=== PATIENT | male | born 1935 | race Caucasian/White ===

== ENCOUNTER 2017-03-08 16:51 | Inpatient (IN) ==
--- NOTE | 2017-03-08 19:00 | Emergency Department Note ---
Disposition Clinical Impression: Fall (on) (from) other stairs and steps, initial encounter, Frequent falls GI bleed Qualifiers: GI bleed type/associated pathology: melena Qualified Code(s): K92.1 - Melena Disposition: Admitted As Inpatient Condition: Fair General Adult HPI - General Chief complaint: ED Extremity Injury, Lower Stated complaint: L leg pain s/p fall Time Seen by Provider: 03/08/17 18:47 Source: patient Mode of arrival: ambulatory Limitations: no limitations Nursing Notes Reviewed: Yes Vital Signs Reviewed: Yes - History of Present Illness HPI Narrative: Pt with history of frequent falls over the last week and a half since changing HTN medication from Benecar to Losartan. States last weekend fell "scraping" [place] somers. Saw PCP on Friday. Since then LLE with increased edema, erythema, ecchymosis which hashad little change. Pain with ambulation "stinging". Full ROM to AE. No testing at PCP from fall. States no dizziness before falls, but when lifting LLE off of ground for stairs falls without syncope, dizziness, or other ailments. Has since changed patterns of entering house through garage to prevent falls since this path involves no steps. Onset (ago): week(s) Location: left, lower extremity Radiation: non-radiation Pain Severity: moderate Pain Scale: 10 Quality: stabbing, sharp Consistency: intermittent Improves with: rest Worsens with: movement Associated symptoms: Reports: denies other symptoms Treatments Prior to Arrival: NSAID, cold therapy, heat therapy - Related Data Allergies Allergy/AdvReac Type Severity Reaction Status Date / Time bacitracin [From Polysporin] Allergy Hives Verified 03/08/17 17:11 Neomycin Allergy Hives Verified 03/08/17 17:11 [From Neosporin ([id number])] polymyxin B [From Polysporin] Allergy Hives Verified 03/08/17 17:11 All systems ED: reviewed and negative except as stated. Review of Systems: As Per HPI Constitutional: Reports: as per HPI. Denies: fever, chills Cardiovascular: Reports: as per HPI, edema. Denies: chest pain, palpitations, syncope Respiratory: Reports: as per HPI. Denies: cough, wheezes, hemoptysis Musculoskeletal: Reports: as per HPI Integumentary: Reports: as per HPI Neurological: Reports: as per HPI Past Medical History - Past Medical History Attestation: Yes The following information was validated with the patient. Medical history: Reports: CHF, myocardial infarction, TIA Psychiatric history: Reports: no psych history - Social History Smoking Status: Never smoker Smokeless Tobacco Status: No Alcohol use: Reports: none Drug use: Reports: none Physical Exam - General Limitations: no limitations General appearance: alert, in no apparent distress - Head Head exam: atraumatic, normocephalic, normal inspection - Chest Chest inspection: Present: normal inspection, symmetric chest wall rise - Respiratory Respiratory exam: Present: normal lung sounds bilaterally. Absent: respiratory distress, wheezes, accessory muscle use - Cardiovascular Cardiovascular exam: Present: regular rate, normal rhythm, normal heart sounds. Absent: systolic murmur - Expanded Lower Extremity Exam 1 - erythema, ecchymosis, hematoma 2 - erythema, ecchymosis, hematoma Knee exam: Present: normal inspection, full ROM. Absent: tenderness, swelling, ecchymosis, deformity, crepitus, dislocation, erythema Lower leg exam: Present: full ROM, tenderness, swelling, abrasion, ecchymosis, erythema. Absent: laceration, deformity, crepitus, dislocation Ankle exam: Present: full ROM, tenderness, swelling, erythema. Absent: abrasion , laceration, ecchymosis, deformity, crepitus, dislocation Foot/toe exam: Present: full ROM, swelling. Absent: tenderness, abrasion, laceration, ecchymosis, deformity Neurovascular/Tendon exam: Present: normal capillary refill, normal fine/light touch. Absent: pulse deficit, motor deficit, sensory deficit, tendon deficit, extremity cold to touch, pallor, foot drop, significant pain with passive ROM of distal joint Gait: not tested/not observed - Neurological Exam Neurological exam: Present: alert, oriented X3, CN II-XII intact - Psychiatric Psychiatric exam: Present: normal affect, normal mood - Skin Skin exam: Present: warm, dry, intact Course Course Narrative: Pleasant, elderly, alert and oriented male presents with history of falls with fall last week resulting in abrasions to LLE. Saw PCP last Friday, since then extremity has had increased edema, erythema, ecchymotic areas, and increased pain. Pt able to walk but with shooting pain. Multiple falls over the last few weeks since HTN medication change. Pt also anti-coagulated on Effient. Pt moved to medical side, report given to Dr. Brink who will take over care. Vital Signs Temperature 97.9 F 03/08/17 17:07 Pulse Rate 76 03/08/17 17:07 Respiratory Rate 18 03/08/17 17:07 Blood Pressure 110/54 03/08/17 17:07 O2 Sat by Pulse Oximetry 98 03/08/17 17:07 Temperature 97.9 F 03/08/17 17:07 Pulse Rate 76 03/08/17 17:07 Respiratory Rate 18 03/08/17 17:07 Blood Pressure 110/54 03/08/17 17:07 O2 Sat by Pulse Oximetry 98 03/08/17 17:07 Oxygen Delivery Oxygen Delivery Room Air Medical Decision Making - Lab Data Result diagrams: 03/08/17 18:58 03/08/17 18:58 Lab Results 03/08/17 03/08/17 03/08/17 Range/Units 18:58 18:58 18:58 WBC 9.7 (4.3-11.1) K/mcL RBC 2.81 L (4.19-5.50) M/mcL Hgb 8.5 L (12.9-16.9) g/dL Hct 26.6 L (37.5-50.1) % MCV 94.7 (83.0-100.0) fL MCH 30.2 (28.0-33.3) pg MCHC 32.0 (31.6-35.5) g/dL RDW 14.1 (11.5-14.5) % Plt Count 331 (140-400) K/mcL MPV 8.4 L (9.4-12.4) fL Immature Gran % 0.5 (0-4) % Seg Neutrophils % 77.7 % Lymphocytes % 6.9 % Monocytes % 13.1 % Eosinophils % 1.3 % Basophils % 0.5 % Neutrophils # 7.5 (1.6-8.9) K/mcL Lymphocytes # 0.7 (0.6-4.6) K/mcL Monocytes # 1.3 (0.0-1.3) K/mcL Eosinophils # 0.1 (0.0-0.6) K/mcL Basophils # 0.1 (0.0-0.2) K/mcL Immature Plt Fraction 1.1 (1.1-6.1) % PT 11.9 (9.4-12.1) Seconds INR 1.1 APTT 30.7 (26.0-36.0) Seconds Sodium 136 (136-145) mEq/L Potassium 4.4 (3.5-5.1) mEq/L Chloride 105 (98-107) mEq/L Carbon Dioxide 23 (23-29) mEq/L BUN 26 H (8-23) mg/dL Creatinine 1.30 (0.70-1.30) mg/dL Est GFR ( Amer) > 60 (> 60) Est GFR (Non-Af Amer) 53 L (> 60) BUN/Creatinine Ratio 20 (6-26) Glucose 99 (70-105) mg/dL Calculated Osmolality 287 (280-300) Calcium 9.3 (8.6-10.3) mg/dL Troponin I (< 0.04) ng/mL Stool Occult Blood (Negative) Specimen Rejected Blood Type 03/08/17 03/08/17 03/08/17 Range/Units 18:58 20:23 21:41 WBC (4.3-11.1) K/mcL RBC (4.19-5.50) M/mcL Hgb (12.9-16.9) g/dL Hct (37.5-50.1) % MCV (83.0-100.0) fL MCH (28.0-33.3) pg MCHC (31.6-35.5) g/dL RDW (11.5-14.5) % Plt Count (140-400) K/mcL MPV (9.4-12.4) fL Immature Gran % (0-4) % Seg Neutrophils % % Lymphocytes % % Monocytes % % Eosinophils % % Basophils % % Neutrophils # (1.6-8.9) K/mcL Lymphocytes # (0.6-4.6) K/mcL Monocytes # (0.0-1.3) K/mcL Eosinophils # (0.0-0.6) K/mcL Basophils # (0.0-0.2) K/mcL Immature Plt Fraction (1.1-6.1) % PT (9.4-12.1) Seconds INR APTT (26.0-36.0) Seconds Sodium (136-145) mEq/L Potassium (3.5-5.1) mEq/L Chloride (98-107) mEq/L Carbon Dioxide (23-29) mEq/L BUN (8-23) mg/dL Creatinine (0.70-1.30) mg/dL Est GFR ( Amer) (> 60) Est GFR (Non-Af Amer) (> 60) BUN/Creatinine Ratio (6-26) Glucose (70-105) mg/dL Calculated Osmolality (280-300) Calcium (8.6-10.3) mg/dL Troponin I < 0.03 (< 0.04) ng/mL Stool Occult Blood Positive A (Negative) Specimen Rejected Volume Blood Type 03/08/17 Range/Units 23:03 WBC (4.3-11.1) K/mcL RBC (4.19-5.50) M/mcL Hgb (12.9-16.9) g/dL Hct (37.5-50.1) % MCV (83.0-100.0) fL MCH (28.0-33.3) pg MCHC (31.6-35.5) g/dL RDW (11.5-14.5) % Plt Count (140-400) K/mcL MPV (9.4-12.4) fL Immature Gran % (0-4) % Seg Neutrophils % % Lymphocytes % % Monocytes % % Eosinophils % % Basophils % % Neutrophils # (1.6-8.9) K/mcL Lymphocytes # (0.6-4.6) K/mcL Monocytes # (0.0-1.3) K/mcL Eosinophils # (0.0-0.6) K/mcL Basophils # (0.0-0.2) K/mcL Immature Plt Fraction (1.1-6.1) % PT (9.4-12.1) Seconds INR APTT (26.0-36.0) Seconds Sodium (136-145) mEq/L Potassium (3.5-5.1) mEq/L Chloride (98-107) mEq/L Carbon Dioxide (23-29) mEq/L BUN (8-23) mg/dL Creatinine (0.70-1.30) mg/dL Est GFR ( Amer) (> 60) Est GFR (Non-Af Amer) (> 60) BUN/Creatinine Ratio (6-26) Glucose (70-105) mg/dL Calculated Osmolality (280-300) Calcium (8.6-10.3) mg/dL Troponin I (< 0.04) ng/mL Stool Occult Blood (Negative) Specimen Rejected Blood Type B POSITIVE
[2017-03-08 19:07] LABS: Basophils # 0.1 K/mcL (0.0-0.2); Basophils % 0.5 %; Eosinophils # 0.1 K/mcL (0.0-0.6); Eosinophils % 1.3 %; Hematocrit 26.6 % (37.5-50.1); Hemoglobin 8.5 g/dL (12.9-16.9); Immature Granulocytes % 0.5 % (0-4); Immature Platelets 1.1 % (1.1-6.1); Lymphocytes # 0.7 K/mcL (0.6-4.6); Lymphocytes % 6.9 %; Mean Corpuscular Hemoglobin 30.2 pg (28.0-33.3); Mean Corpuscular Volume 94.7 fL (83.0-100.0); Mean Platelet Volume 8.4 fL (9.4-12.4); Monocytes # 1.3 K/mcL (0.0-1.3); Monocytes % 13.1 %; Neutrophils # 7.5 K/mcL (1.6-8.9); Platelet Count 331 K/mcL (140-400); Red Blood Count 2.81 M/mcL (4.19-5.50); Red Cell Distribution Width 14.1 % (11.5-14.5); Segmented Neutrophils % 77.7 %
[2017-03-08 19:20] LABS: BUN/Creatinine Ratio 20 (6-26); Blood Urea Nitrogen 26 mg/dL (8-23); Calcium 9.3 mg/dL (8.6-10.3); Carbon Dioxide 23 mEq/L (23-29); Chloride 105 mEq/L (98-107); Glucose 99 mg/dL (70-105); Osmolality,Calculated 287 (280-300); Potassium 4.4 mEq/L (3.5-5.1); Sodium 136 mEq/L (136-145); eGFR For African Americans > 60 (> 60); eGFR For Non-African Americans 53 (> 60)
[2017-03-08 19:54] LABS: INR 1.1; Prothrombin Time 11.9 Seconds (9.4-12.1)
[2017-03-08 19:57] LABS: Activated Partial Thrombo Time 30.7 Seconds (26.0-36.0)
--- NOTE | 2017-03-08 22:43 | Emergency Department Note ---
Disposition Clinical Impression: Fall (on) (from) other stairs and steps, initial encounter, Frequent falls GI bleed Qualifiers: GI bleed type/associated pathology: melena Qualified Code(s): K92.1 - Melena Traumatic hematoma of left lower leg Qualifiers: Encounter type: initial encounter Qualified Code(s): S80.12XA - Contusion of left lower leg, initial encounter Disposition: Admitted As Inpatient Condition: Fair Time of Disposition: 22:46 Lower Extremity Injury HPI - General Chief Complaint: ED Extremity Injury, Lower Stated Complaint: L leg pain s/p fall Time Seen by Provider: 03/08/17 18:47 Source: patient Mode of arrival: ambulatory Limitations: no limitations Nursing Notes Reviewed: Yes Vital Signs Reviewed: Yes - History of Present Illness HPI Narrative: 81-year-old male presents with left leg pain and tenderness, also frequent falls , as well as fall and head injury. Patient anticoagulated on Effient, he states he has had more episodes dizziness lately that he attributes to changing his blood pressure medicine patient reports dark black stools, he denies hematochezia or hematemesis. Denies abdominal pain. Her chest pain. Patient is a history of blood clots or DVTs. He was seen initially by the nurse practitioner up at triage, there is concern for DVT immediately on the left so an ultrasound was ordered as well as basic lab work. Patient states his pain is 4 out of 10 worse with ambulation. Pt Subjective Complaint: leg injury Injury location: Left Leg Onset (ago): day(s) Mechanism of Injury: fall Pain Severity: mild Pain Scale: 4 Associated symptoms: Reports: able to partially bear weight - Related Data Allergies Allergy/AdvReac Type Severity Reaction Status Date / Time bacitracin [From Polysporin] Allergy Hives Verified 03/08/17 17:11 Neomycin Allergy Hives Verified 03/08/17 17:11 [From Neosporin ([id number])] polymyxin B [From Polysporin] Allergy Hives Verified 03/08/17 17:11 All systems ED: reviewed and negative except as stated. Review of Systems: As Per HPI Constitutional: Reports: as per HPI. Denies: fever, chills Cardiovascular: Reports: as per HPI, edema. Denies: chest pain, palpitations, syncope Respiratory: Reports: as per HPI. Denies: cough, wheezes, hemoptysis Gastrointestinal: Reports: melena. Denies: abdominal pain, nausea, hematochezia Genitourinary: Denies: urgency Musculoskeletal: Reports: as per HPI Integumentary: Reports: as per HPI Neurological: Reports: as per HPI Past Medical History - Past Medical History Attestation: Yes The following information was validated with the patient. Source: patient Medical history: Reports: CHF, myocardial infarction, TIA Psychiatric history: Reports: no psych history - Social History Smoking Status: Never smoker Smokeless Tobacco Status: No Alcohol use: Reports: none Drug use: Reports: none Physical Exam Constitutional: Elderly male in no acute distress, appears dehydrated, somewhat shaky vital signs stable Eyes: PERRLA, sclera anicteric, pale conjunctiva ENT & Mouth: MM dry Neck: normal inspection, neck is supple Resp: CTA bilaterally, no resp distress CV: RRR, no m/g/r GI: normal inspection, soft, no guarding or rigidity Rectal: black stool occult + Neuro: A&O3, CNII-XII grossly intact, PADILLA MSK: Tenderness to palpation left anterior tibial and posterior leg, good range of motion and no gross deformity Skin: Erythematous left leg with firm indurated skin, no crepitus, no fluctuance. - General Limitations: no limitations General appearance: alert, in no apparent distress Course Course Narrative: 81-year-old male with frequent falls, concern for GI bleed as well as he has melenic stools, his left leg is erythematous and swollen, no clear signs of DVT as this swelling appears to be not much greater than the right side however ultrasound was ordered basic lab work as well as coagulation studies were ordered in addition to the mid-level's exam, there is also concern for frequent falls, he is on a blood thinner Effient therefore head CT also be ordered his head is atraumatic at this time and he did say he has had a few days ago and is not sure why falls of its syncopal, no clear signs of arrhythmia on his EKG. - Reevaluation(s) Reevaluation #1: Hospitalist paged Reevaluation #2: Admitted to hospital service for GI bleed frequent falls, type and screen ordered, patient hemolytically stable at time of disposition Vital Signs Temperature 97.9 F 03/08/17 17:07 Pulse Rate 76 03/08/17 17:07 Respiratory Rate 18 03/08/17 17:07 Blood Pressure 110/54 03/08/17 17:07 O2 Sat by Pulse Oximetry 98 03/08/17 17:07 Temperature 97.9 F 03/08/17 17:07 Pulse Rate 76 03/08/17 17:07 Respiratory Rate 16 03/08/17 23:51 Blood Pressure 117/53 03/08/17 23:51 O2 Sat by Pulse Oximetry 98 03/08/17 17:07 Oxygen Delivery Oxygen Delivery Room Air Extremity Injury, Lower - Medical Records Medical records reviewed: Yes I reviewed the patient's medical records. - Lab Data Lab results reviewed: Yes I reviewed the patient's lab results. Result diagrams: 03/08/17 18:58 03/08/17 18:58 Lab Results 03/08/17 03/08/17 03/08/17 Range/Units 18:58 18:58 18:58 WBC 9.7 (4.3-11.1) K/mcL RBC 2.81 L (4.19-5.50) M/mcL Hgb 8.5 L (12.9-16.9) g/dL Hct 26.6 L (37.5-50.1) % MCV 94.7 (83.0-100.0) fL MCH 30.2 (28.0-33.3) pg MCHC 32.0 (31.6-35.5) g/dL RDW 14.1 (11.5-14.5) % Plt Count 331 (140-400) K/mcL MPV 8.4 L (9.4-12.4) fL Immature Gran % 0.5 (0-4) % Seg Neutrophils % 77.7 % Lymphocytes % 6.9 % Monocytes % 13.1 % Eosinophils % 1.3 % Basophils % 0.5 % Neutrophils # 7.5 (1.6-8.9) K/mcL Lymphocytes # 0.7 (0.6-4.6) K/mcL Monocytes # 1.3 (0.0-1.3) K/mcL Eosinophils # 0.1 (0.0-0.6) K/mcL Basophils # 0.1 (0.0-0.2) K/mcL Immature Plt Fraction 1.1 (1.1-6.1) % PT 11.9 (9.4-12.1) Seconds INR 1.1 APTT 30.7 (26.0-36.0) Seconds Sodium 136 (136-145) mEq/L Potassium 4.4 (3.5-5.1) mEq/L Chloride 105 (98-107) mEq/L Carbon Dioxide 23 (23-29) mEq/L BUN 26 H (8-23) mg/dL Creatinine 1.30 (0.70-1.30) mg/dL Est GFR ( Amer) > 60 (> 60) Est GFR (Non-Af Amer) 53 L (> 60) BUN/Creatinine Ratio 20 (6-26) Glucose 99 (70-105) mg/dL Calculated Osmolality 287 (280-300) Calcium 9.3 (8.6-10.3) mg/dL Troponin I (< 0.04) ng/mL Stool Occult Blood (Negative) Specimen Rejected Blood Type Antibody Screen 03/08/17 03/08/17 03/08/17 Range/Units 18:58 20:23 21:41 WBC (4.3-11.1) K/mcL RBC (4.19-5.50) M/mcL Hgb (12.9-16.9) g/dL Hct (37.5-50.1) % MCV (83.0-100.0) fL MCH (28.0-33.3) pg MCHC (31.6-35.5) g/dL RDW (11.5-14.5) % Plt Count (140-400) K/mcL MPV (9.4-12.4) fL Immature Gran % (0-4) % Seg Neutrophils % % Lymphocytes % % Monocytes % % Eosinophils % % Basophils % % Neutrophils # (1.6-8.9) K/mcL Lymphocytes # (0.6-4.6) K/mcL Monocytes # (0.0-1.3) K/mcL Eosinophils # (0.0-0.6) K/mcL Basophils # (0.0-0.2) K/mcL Immature Plt Fraction (1.1-6.1) % PT (9.4-12.1) Seconds INR APTT (26.0-36.0) Seconds Sodium (136-145) mEq/L Potassium (3.5-5.1) mEq/L Chloride (98-107) mEq/L Carbon Dioxide (23-29) mEq/L BUN (8-23) mg/dL Creatinine (0.70-1.30) mg/dL Est GFR ( Amer) (> 60) Est GFR (Non-Af Amer) (> 60) BUN/Creatinine Ratio (6-26) Glucose (70-105) mg/dL Calculated Osmolality (280-300) Calcium (8.6-10.3) mg/dL Troponin I < 0.03 (< 0.04) ng/mL Stool Occult Blood Positive A (Negative) Specimen Rejected Volume Blood Type Antibody Screen 03/08/17 Range/Units 23:03 WBC (4.3-11.1) K/mcL RBC (4.19-5.50) M/mcL Hgb (12.9-16.9) g/dL Hct (37.5-50.1) % MCV (83.0-100.0) fL MCH (28.0-33.3) pg MCHC (31.6-35.5) g/dL RDW (11.5-14.5) % Plt Count (140-400) K/mcL MPV (9.4-12.4) fL Immature Gran % (0-4) % Seg Neutrophils % % Lymphocytes % % Monocytes % % Eosinophils % % Basophils % % Neutrophils # (1.6-8.9) K/mcL Lymphocytes # (0.6-4.6) K/mcL Monocytes # (0.0-1.3) K/mcL Eosinophils # (0.0-0.6) K/mcL Basophils # (0.0-0.2) K/mcL Immature Plt Fraction (1.1-6.1) % PT (9.4-12.1) Seconds INR APTT (26.0-36.0) Seconds Sodium (136-145) mEq/L Potassium (3.5-5.1) mEq/L Chloride (98-107) mEq/L Carbon Dioxide (23-29) mEq/L BUN (8-23) mg/dL Creatinine (0.70-1.30) mg/dL Est GFR ( Amer) (> 60) Est GFR (Non-Af Amer) (> 60) BUN/Creatinine Ratio (6-26) Glucose (70-105) mg/dL Calculated Osmolality (280-300) Calcium (8.6-10.3) mg/dL Troponin I (< 0.04) ng/mL Stool Occult Blood (Negative) Specimen Rejected Blood Type B POSITIVE Antibody Screen NEGATIVE - Radiology Data Radiology results reviewed: Yes I reviewed the patient's radiology results. Ankle X-Ray 03/08/17 17:15 IMPRESSION: No acute fracture or dislocation identified about the left tibia and fibula or ankle. Soft tissue swelling is noted. D/ / Fidencio Grey MD / Fidencio Grey MD Interpreting Provider: Fidencio Grey MD Tibia/Fibula X-Ray 03/08/17 17:15 IMPRESSION: No acute fracture or dislocation identified about the left tibia and fibula or ankle. Soft tissue swelling is noted. D/ / Fidencio Grey MD / Fidencio Grey MD Interpreting Provider: Fidencio Grey MD Chest X-Ray 03/08/17 18:53 IMPRESSION: No acute cardiopulmonary abnormality identified. D/ / Fidencio Grey MD / Fidencio Grey MD Interpreting Provider: Fidencio Grey MD Head CT 03/08/17 19:28 IMPRESSION: No acute intracranial abnormality. D/ / Joy Ortiz / Joy Ortiz Interpreting Provider: Joy Ortiz - EKG Data EKG attestation: Yes I reviewed and interpreted this EKG. EKG shows normal: sinus rhythm Rate: normal (67 bpm DC 176 QRS 88 QTc [address] segment elevations or depressions.) Attestation Statement - Attestation Attestation: I, Myron Brink MD, personally evaluated this patient and discussed their management with the resident physician. I reviewed the resident's note and agree with the documented findings, medical decision making, and plan of care. 81-year-old male presents to the emergency department with a complaint of pain and swelling and redness in the left lower leg after he fell and scraped it earlier this week. Patient states he has fallen at least twice in the past week. He denies hitting his head or any loss of consciousness. He is unsure why he is falling. He does live at home alone. He ambulates with a cane. He denies any cough or fever. No chest pain or increased shortness of breath. No abdominal pain. No vomiting or diarrhea. He does admit to some melena but states this is chronic and that he takes iron. On examination patient is a well-developed well-nourished well-appearing elderly male in no acute distress. He is alert. Patient is oriented but does seem to have some degree of dementia and keeps asking questions repeatedly and seems to have difficulty grasping or remembering answers. There is no cyanosis or diaphoresis. Breath sounds are equal bilaterally. Heart regular. Abdomen soft with normal bowel sounds. On rectal exam there was firm stool in the rectum which was very dark greenish black. No gross blood. No tenderness. No masses. There is swelling and erythema of the left lower extremity with moderate tenderness in the left calf. Labs reviewed. Hemoglobin of 8.5 which is a significant drop from his last hemoglobin on record here which I believe was 10.5. Stool Hemoccult was positive. This may be the etiology of the patient's frequent falls. X-ray of the left tib-fib and ankle was negative. CT of the head showed no acute intracranial abnormality. The hospitalist, Dr. Hernandez, was consulted and accepted admission of the patient.
[2017-03-09] MEDS ORDERED: Naloxone 0.4 MG/ML INJ IVP PRN (02:59)
[2017-03-09] MEDS ORDERED: Ibuprofen 400 MG TABLET PO PRN (02:59)
--- NOTE | 2017-03-09 03:05 | Internal Med History&Physical ---
Date of Encounter: 03/09/17 Time of Encounter: 03:00 Internal Medicine - H&P: HPI History of present illness: Mr. Howe is a 81 year old male Past Med Surg Social Fam HX - Past Medical History Medical history: CHF, myocardial infarction, TIA Psychiatric history: no psych history - Past Surgical History Surgical History: angioplasty/stent, cataract, herniorrhaphy - Social History Smoking Status: Never smoker Smokeless Tobacco Status: No Alcohol use: none Drug use: none - Family History Mother Living Status: Hx Family Cancer: Yes (Brain Cancer) Father Living Status: Cause of : Heart problems Hx Family Cardiac Disorders: Yes Internal Medicine - H&P: Meds 3 Allergy/AdvReac Type Severity Reaction Status Date / Time bacitracin [From Polysporin] Allergy Hives Verified 03/08/17 17:11 Neomycin Allergy Hives Verified 03/08/17 17:11 [From Neosporin ([id number])] polymyxin B [From Polysporin] Allergy Hives Verified 03/08/17 17:11 All Systems PM: A 10-system review of systems was performed and is negative for pertinent findings except as documented above in the HPI. - Constitutional Vitals: Temp Pulse Resp BP Pulse Ox 98.0 F 78 17 142/66 95 03/09/17 00:55 03/09/17 00:55 03/09/17 00:55 03/09/17 00:55 03/09/17 00:55 Internal Med - H&P Results - Labs CBC & Chem 7: 03/08/17 18:58 03/08/17 18:58
[2017-03-09 06:01] LABS: Basophils # 0.1 K/mcL (0.0-0.2); Basophils % 0.7 %; Eosinophils # 0.2 K/mcL (0.0-0.6); Eosinophils % 1.9 %; Hematocrit 25.5 % (37.5-50.1); Hemoglobin 8.3 g/dL (12.9-16.9); Immature Granulocytes % 0.2 % (0-4); Lymphocytes # 0.5 K/mcL (0.6-4.6); Lymphocytes % 5.3 %; Mean Corpuscular HGB Conc 32.5 g/dL (31.6-35.5); Mean Corpuscular Hemoglobin 30.9 pg (28.0-33.3); Mean Corpuscular Volume 94.8 fL (83.0-100.0); Monocytes # 1.1 K/mcL (0.0-1.3); Monocytes % 11.8 %; Neutrophils # 7.3 K/mcL (1.6-8.9); Platelet Count 301 K/mcL (140-400); Red Blood Count 2.69 M/mcL (4.19-5.50); Red Cell Distribution Width 14.1 % (11.5-14.5); Segmented Neutrophils % 80.1 %
[2017-03-09 06:13] LABS: BUN/Creatinine Ratio 18 (6-26); Blood Urea Nitrogen 24 mg/dL (8-23); Calcium 8.8 mg/dL (8.6-10.3); Carbon Dioxide 23 mEq/L (23-29); Chloride 107 mEq/L (98-107); Glucose 96 mg/dL (70-105); Osmolality,Calculated 288 (280-300); Potassium 4.2 mEq/L (3.5-5.1); Sodium 137 mEq/L (136-145); eGFR For African Americans > 60 (> 60); eGFR For Non-African Americans 53 (> 60)
--- NOTE | 2017-03-09 07:49 | Internal Med History&Physical ---
Date of Encounter: 03/10/17 Time of Encounter: 07:43 Assessment and Plan (1) Anemia due to blood loss Current visit: Yes Status: Acute Hemoglobin dropped to 8.3 from yesterday 8.5. Baseline in our system 11.71 year ago. He does report black stools. Clear liquid diet. IV Protonix. General surgery consult for EGD. H&H every 6 hours. Check iron studies. Hold all nonsteroidal anti-inflammatory drugs. I discussed the case with surgery. Plan for EGD today or tomorrow. (2) Essential hypertension Current visit: No Status: Acute Resume home meds. (3) Fall (on) (from) other stairs and steps, initial encounter Current visit: Yes Status: Acute (4) Frequent falls Current visit: Yes Status: Acute (5) GI bleed Current visit: Yes Status: Acute Conservative surgery for EGD and colonoscopy. Hold Effient due to concern for possible worsening of his GI bleed. Transfuse to maintain hemoglobin above 8.0. Qualifiers: GI bleed type/associated pathology: melena Qualified Code(s): K92.1 - Melena (6) Traumatic hematoma of left lower leg Current visit: Yes Status: Acute Fall precautions. PT OT evaluation. Gen. surgery evaluation Qualifiers: Encounter type: initial encounter Qualified Code(s): S80.12XA - Contusion of left lower leg, initial encounter (7) DVT prophylaxis Current visit: Yes Status: Acute Internal Medicine - H&P: HPI Chief complaint: Left leg pain status post fall Admitted From: Emergency Dept Plans for Post Hospital Care: Transfer Residential Facility History of present illness: Mr. Howe is a 81 year old male with past medical history significant for hypertension, CHF, CAD and TIA who presented to the hospital for evaluation of left lower extremity pain after he suffered a fall. He fell 4 days ago down some stairs and injured his left leg and left buttock. He felt lightheaded prior to falling but denies chest pain. He says that his blood pressure medication has been changed recently from Benicar to losartan. Since that change he has been more lightheaded. He reports a aching, moderate to severe pain in the left lower leg, worse with bearing weight, improved with ibuprofen and morphine which he received in the emergency department. He also reports long-standing history of black stool which he relates to taking iron pill. Denies abdominal pain, nausea vomiting diarrhea, hematemesis, dysuria. He had a colonoscopy which she believes was 3 years ago and was unremarkable. Workup done in the emergency department was pertinent for hemoglobin of 8.5 and positive fecal occult blood testing. Lower leg x-rays revealed no evidence of a fracture. Family history was reviewed and found to be noncontributory to this presentation. Denies tobacco alcohol and drug use. Lives at home independently. Ambulates with the assistance of a cane. Past Med Surg Social Fam HX - Past Medical History Medical history: CHF, myocardial infarction, TIA Psychiatric history: no psych history - Past Surgical History Surgical History: angioplasty/stent, cataract, herniorrhaphy - Social History Smoking Status: Never smoker Smokeless Tobacco Status: No Alcohol use: none Drug use: none - Family History Mother Living Status: Hx Family Cancer: Yes (Brain Cancer) Father Living Status: Cause of : Heart problems Hx Family Cardiac Disorders: Yes Internal Medicine - H&P: Meds Docusate [Colace] 100 mg PO DAILY PRN 03/09/17 [History] Ferrous Sulfate [Iron] 325 mg PO BID 03/09/17 [History] Finasteride [Proscar] 5 mg PO DAILY 03/09/17 [History] Furosemide [Lasix] 20 mg PO DAILY PRN 03/09/17 [History] Losartan Potassium [Cozaar] 100 mg PO DAILY 03/09/17 [History] Multivit-Min/FA/Lycopen/Lutein [Centrum Silver Men Tablet] 1 tab PO DAILY [History] Prasugrel [Effient] 10 mg PO DAILY 03/09/17 [History] Ranolazine [Ranexa] 1,000 mg PO BID 03/09/17 [History] Simvastatin [Zocor] 20 mg PO DAILY 03/09/17 [History] Tamsulosin [Flomax] 0.4 mg PO DAILY 03/09/17 [History] 3 Allergy/AdvReac Type Severity Reaction Status Date / Time bacitracin [From Polysporin] Allergy Hives Verified 03/08/17 17:11 Neomycin Allergy Hives Verified 03/08/17 17:11 [From Neosporin ([id number])] polymyxin B [From Polysporin] Allergy Hives Verified 03/08/17 17:11 All Systems PM: A 10-system review of systems was performed and is negative for pertinent findings except as documented above in the HPI. - Constitutional Vitals: Temp Pulse Resp BP Pulse Ox 98.1 F 79 16 140/95 92 03/09/17 03:24 03/09/17 03:24 03/09/17 03:24 03/09/17 03:24 03/09/17 03:24 General appearance: Present: A&O X 3, no acute distress - Eye Eye exam: Present: PERRL, conjuntiva pink, sclera anicteric Pupils: Present: PERRL - Respiratory Respiratory exam: Present: CTAB. Absent: accessory muscle use, rales, rhonchi, wheezes - Cardiovascular Cardiovascular exam: Present: RRR, +S1, +S2. Absent: diastolic murmur, gallop, rubs, systolic murmur - GI/Abdominal GI/Abdominal exam: Present: normal bowel sounds, soft, no peritoneal signs. Absent: distended, tenderness - Extremities Exam Extremities exam: Present: pedal edema (Left lower extremity hematoma and soft tissue edema), warm, radial pulses palpable and symmetrical. Absent: calf tenderness, cyanotic - Neurological Exam Neurological exam: Present: CN II-XII intact, oriented X3, no focal deficits. Absent: pronater drift, facial droop, speech deficit - Skin Additional comments: Skin bruising and subcutaneous hematoma of the left lower leg. Superficial bruise on the left buttock. No open wounds. Internal Med - H&P Results - Labs CBC & Chem 7: 03/10/17 04:27 03/10/17 04:27 Labs: Short CBC 03/09/17 Range/Units 05:32 WBC 9.1 (4.3-11.1) K/mcL Hgb 8.3 L (12.9-16.9) g/dL Hct 25.5 L (37.5-50.1) % Plt Count 301 (140-400) K/mcL Neutrophils # 7.3 (1.6-8.9) K/mcL BMP 03/09/17 05:32 Sodium 137 Potassium 4.2 Chloride 107 Carbon Dioxide 23 BUN 24 H Creatinine 1.30 Glucose 96 Calcium 8.8 Per chart review: Baseline hemoglobin in 07/04/2015 was 11.7.
[2017-03-09] MEDS ORDERED: Ondansetron 4 MG/2 ML VIAL IVP PRN (09:57)
[2017-03-09 10:55] LABS: Hematocrit 23.9 % (37.5-50.1); Hemoglobin 7.5 g/dL (12.9-16.9)
--- NOTE | 2017-03-09 13:19 | General Surgery Consult Note ---
<Shahana Gillette - Last Filed: 03/09/17 16:32> Date of Encounter: 03/09/17 Time of Encounter: 13:17 Assessment and Plan (1) Traumatic hematoma of left lower leg Current Visit: Yes Status: Acute 81 y M with L LE wound s/p fall 4 days ago, with X-ray demonstrating no evidence of acute fracture or dislocation at left tibia, fibula or ankle. -Non palpable posterial tibial artery and dorsalis pedis pulses on Lower LE, signal for posteria tibial and dorsalis pedis audible with doppler -Pt denies pain on walking to attending, which is is not consistent with claudication symptoms -07/04/15 CHARLEE Index study impression: Bilateral Ankle Brachial Index is normal. -Recommend Abx: Ancef 1 g q8h -Management L LE hematoma expectantly: apply warm compresses daily. Qualifiers: Encounter type: initial encounter Qualified Code(s): S80.12XA - Contusion of left lower leg, initial encounter (2) Anemia due to blood loss Current Visit: Yes Status: Acute Continue H/H. - Plan for EGD/colonoscopy - Attending Dr. Villa discussed plan with pt. Pt amenable to plan. - Bowel prep ordered -NPO from midnight. (3) Essential hypertension Current Visit: Yes Status: Acute Management per primary team. (4) Frequent falls Current Visit: Yes Status: Acute Noted pt is fall risk. (5) DVT prophylaxis Current Visit: Yes Status: Acute Management per primary team. History of Present Illness Consult date: 03/09/17 Reason for consult: wound care Requesting physician: Sundar Duffy History of present illness: Mr. Howe is a 81 year old male with past medical history of HTN, CHF, CAD and TIA who presented to the hospital for evaluation of left lower extremity pain s/ p fall 4 days ago down some stairs. Pt injured his left leg and left buttock. He felt lightheaded prior to falling, however denies LOC. States he has fallen multiple times since change in BP medication He reports a aching, moderate to severe pain in the left lower leg, worse with bearing weight, improved with ibuprofen and morphine which he received in the emergency department. Pt ambulates with the assistance of a cane denies pain on walking prolonged distance prior to fall. Lower leg x-rays revealed no evidence of a fracture. ROS: He also reports long-standing history of black stool which he relates to taking iron pill. Denies abdominal pain, nausea vomiting diarrhea, hematemesis , dysuria. ED labs: hemoglobin of 8.5 and positive fecal occult blood testing. Surgical Hx: He had a colonoscopy which she believes was 3 years ago and was unremarkable. Social: Lives at home independently. Past Med Surg Social Fam HX - Past Medical History Medical history: CHF, myocardial infarction, TIA Psychiatric history: no psych history - Past Surgical History Surgical History: angioplasty/stent, cataract, herniorrhaphy - Social History Smoking Status: Never smoker Smokeless Tobacco Status: No Alcohol use: none Drug use: none - Family History Mother Living Status: Hx Family Cancer: Yes (Brain Cancer) Father Living Status: Cause of : Heart problems Hx Family Cardiac Disorders: Yes Medications and Allergies Docusate [Colace] 100 mg PO DAILY PRN 03/09/17 [History] Ferrous Sulfate [Iron] 325 mg PO BID 03/09/17 [History] Finasteride [Proscar] 5 mg PO DAILY 03/09/17 [History] Furosemide [Lasix] 20 mg PO DAILY PRN 03/09/17 [History] Losartan Potassium [Cozaar] 100 mg PO DAILY 03/09/17 [History] Multivit-Min/FA/Lycopen/Lutein [Centrum Silver Men Tablet] 1 tab PO DAILY [History] Prasugrel [Effient] 10 mg PO DAILY 03/09/17 [History] Ranolazine [Ranexa] 1,000 mg PO BID 03/09/17 [History] Simvastatin [Zocor] 20 mg PO DAILY 03/09/17 [History] Tamsulosin [Flomax] 0.4 mg PO DAILY 03/09/17 [History] 3 Allergy/AdvReac Type Severity Reaction Status Date / Time bacitracin [From Polysporin] Allergy Hives Verified 03/08/17 17:11 Neomycin Allergy Hives Verified 03/08/17 17:11 [From Neosporin ([id number])] polymyxin B [From Polysporin] Allergy Hives Verified 03/08/17 17:11 Review of Systems All systems PM: As documented above in the HPI. General Surgery Exam Initial Vital Signs Temp Pulse Resp BP Pulse Ox 97.9 F 76 18 110/54 98 03/08/17 17:07 03/08/17 17:07 03/08/17 17:07 03/08/17 17:07 03/08/17 17:07 - General physical appearance no distress - Eyes normal ocular movement - Respiratory normal expansion, normal respiratory effort, clear to auscultation - Cardiovascular Cardiovascular exam: Present: regular rhythm - Abdomen Abdomen general surgery: Present: bowel sounds present, soft, non tender ( martinez hangiomas diffusely present on abdomen, absent flank echymossis, midline abdominal mass ) - Musculoskeletal Present: other (LE: mild circumferential erythema on L LE, some blanching. Contusion evident on lateral side of L LE. Warm to touch. Mild tenderness on palpation. L LE posterior tibial arteries and dorsalis pedal signal with doppler , however not palpable. R posterior tibial arteries and dorsalis pedal pulses palpable. L foot evident for edema ) Exam Initial Vital Signs Temp Pulse Resp BP Pulse Ox 97.9 F 76 18 110/54 98 03/08/17 17:07 03/08/17 17:07 03/08/17 17:07 03/08/17 17:07 03/08/17 17:07 Results - Labs 03/09/17 14:27 03/09/17 05:32 Abnormal lab results RBC 2.69 M/mcL (4.19-5.50) L 03/09/17 05:32 Hgb 7.5 g/dL (12.9-16.9) L 03/09/17 10:17 Hct 23.9 % (37.5-50.1) L 03/09/17 10:17 MPV 9.0 fL (9.4-12.4) L 03/09/17 05:32 Lymphocytes # 0.5 K/mcL (0.6-4.6) L 03/09/17 05:32 BUN 24 mg/dL (8-23) H 03/09/17 05:32 Est GFR (Non-Af Amer) 53 (> 60) L 03/09/17 05:32 Stool Occult Blood Positive (Negative) A 03/08/17 21:41 Diabetes panel 03/09/17 Range/Units 05:32 Sodium 137 (136-145) mEq/L Potassium 4.2 (3.5-5.1) mEq/L Chloride 107 (98-107) mEq/L Carbon Dioxide 23 (23-29) mEq/L BUN 24 H (8-23) mg/dL Creatinine 1.30 (0.70-1.30) mg/dL Glucose 96 (70-105) mg/dL Calcium 8.8 (8.6-10.3) mg/dL Calcium panel 03/09/17 Range/Units 05:32 Calcium 8.8 (8.6-10.3) mg/dL Pituitary panel 03/09/17 Range/Units 05:32 Sodium 137 (136-145) mEq/L Potassium 4.2 (3.5-5.1) mEq/L Chloride 107 (98-107) mEq/L Carbon Dioxide 23 (23-29) mEq/L BUN 24 H (8-23) mg/dL Creatinine 1.30 (0.70-1.30) mg/dL Glucose 96 (70-105) mg/dL Calcium 8.8 (8.6-10.3) mg/dL Adrenal panel 03/09/17 Range/Units 05:32 Sodium 137 (136-145) mEq/L Potassium 4.2 (3.5-5.1) mEq/L Chloride 107 (98-107) mEq/L Carbon Dioxide 23 (23-29) mEq/L BUN 24 H (8-23) mg/dL Creatinine 1.30 (0.70-1.30) mg/dL Glucose 96 (70-105) mg/dL Calcium 8.8 (8.6-10.3) mg/dL All other labs normal. - Imaging Chest x-ray: report reviewed Additional studies: ITS Impressions Ankle X-Ray 03/08/17 17:15 IMPRESSION: No acute fracture or dislocation identified about the left tibia and fibula or ankle. Soft tissue swelling is noted. D/ / Fidencio Grey MD / Fidencio Grey MD Interpreting Provider: Fidencio Grey MD Tibia/Fibula X-Ray 03/08/17 17:15 IMPRESSION: No acute fracture or dislocation identified about the left tibia and fibula or ankle. Soft tissue swelling is noted. D/ / Fidencio Grey MD / Fidencio Grey MD Interpreting Provider: Fidencio Grey MD Chest X-Ray 03/08/17 18:53 IMPRESSION: No acute cardiopulmonary abnormality identified. D/ / Fidencio Grey MD / Fidencio Grey MD Interpreting Provider: Fidencio Grey MD Head CT 03/08/17 19:28 IMPRESSION: No acute intracranial abnormality. D/ / Joy Ortiz / Joy Ortiz Interpreting Provider: Joy Ortiz Consult Discharge Plan - Plan Referrals: Irving Latif Jr, MD [Primary Care Provider] - <Ismael Villa - Last Filed: 03/10/17 07:07> Date of Encounter: 03/09/17 Review of Systems All systems PM: A 10-system review of systems was performed and is negative for pertinent findings except as documented above in the HPI. General Surgery Exam Initial Vital Signs Temp Pulse Resp BP Pulse Ox 97.9 F 76 18 110/54 98 03/08/17 17:07 03/08/17 17:07 03/08/17 17:07 03/08/17 17:07 03/08/17 17:07 Exam Initial Vital Signs Temp Pulse Resp BP Pulse Ox 97.9 F 76 18 110/54 98 03/08/17 17:07 03/08/17 17:07 03/08/17 17:07 03/08/17 17:07 03/08/17 17:07 Results - Labs 03/10/17 04:27 03/10/17 04:27 Abnormal lab results RBC 2.74 M/mcL (4.19-5.50) L 03/10/17 04:27 Hgb 8.3 g/dL (12.9-16.9) L 03/10/17 04:27 Hct 26.2 % (37.5-50.1) L 03/10/17 04:27 MPV 9.1 fL (9.4-12.4) L 03/10/17 04:27 Creatinine 1.36 mg/dL (0.70-1.30) H 03/10/17 04:27 Est GFR (Non-Af Amer) 50 (> 60) L 03/10/17 04:27 Stool Occult Blood Positive (Negative) A 03/08/17 21:41 Diabetes panel 03/10/17 Range/Units 04:27 Sodium 137 (136-145) mEq/L Potassium 4.1 (3.5-5.1) mEq/L Chloride 105 (98-107) mEq/L Carbon Dioxide 26 (23-29) mEq/L BUN 22 (8-23) mg/dL Creatinine 1.36 H (0.70-1.30) mg/dL Glucose 104 (70-105) mg/dL Calcium 8.8 (8.6-10.3) mg/dL Calcium panel 03/10/17 Range/Units 04:27 Calcium 8.8 (8.6-10.3) mg/dL Pituitary panel 03/10/17 Range/Units 04:27 Sodium 137 (136-145) mEq/L Potassium 4.1 (3.5-5.1) mEq/L Chloride 105 (98-107) mEq/L Carbon Dioxide 26 (23-29) mEq/L BUN 22 (8-23) mg/dL Creatinine 1.36 H (0.70-1.30) mg/dL Glucose 104 (70-105) mg/dL Calcium 8.8 (8.6-10.3) mg/dL Adrenal panel 03/10/17 Range/Units 04:27 Sodium 137 (136-145) mEq/L Potassium 4.1 (3.5-5.1) mEq/L Chloride 105 (98-107) mEq/L Carbon Dioxide 26 (23-29) mEq/L BUN 22 (8-23) mg/dL Creatinine 1.36 H (0.70-1.30) mg/dL Glucose 104 (70-105) mg/dL Calcium 8.8 (8.6-10.3) mg/dL All other labs normal. - Attending Attestation I examined this patient and my medical decision-making was reviewed with the Resident Physician. I agree with the documented findings, disposition and treatment plan as described except to the extent set forth below. I reviewed the above assessment and evaluation with the resident and I agree with the above plan. Patient with dark-colored stool and noted low hemoglobin level. Denies any hematemesis and denies any abdominal pain symptoms. Denies any nausea or vomiting. Pain on physical examination. Additionally, the patient has a hematoma in the left lower extremity. There is some mild bruising and a hematoma on the anterior lateral side of the leg and tibia. There is some mild erythema that is slightly blanching. I expect to the patient that I think it would be reasonable to go ahead and consider an EGD and colonoscopy during this hospital stay. I will write for MiraLAX Gatorade bowel prep. I also recommend cold compresses to the hematoma site since I think this will be reabsorbed by the body over time and does not need any type of intervention. The erythema may be related to the ecchymosis however I think it would be appropriate to consider antibiotics just in case ( Ancef).
[2017-03-09 14:36] LABS: Hematocrit 25.7 % (37.5-50.1)
[2017-03-09] MEDS: *HR* HYDROcodone/Acet 5/325 mg TABLET PO PRN ×2 (14:55→22:15)
[2017-03-09] MEDS ORDERED: Polyethylene Glycol 3350 255 GM POWDER PO ONE (15:16)
[2017-03-09] MEDS ORDERED: ceFAZolin 1,000 MG in D5% in Water (Mini-Bag+) 100 ML IVPB SCH (16:00)
[2017-03-09] MEDS: ceFAZolin 1,000 MG in Water for inj. (sterile) 20 ML 10 ML IVP SCH ×2 (16:25→23:57)
[2017-03-09 21:52] LABS: Hematocrit 23.1 % (37.5-50.1); Hemoglobin 7.3 g/dL (12.9-16.9)
[2017-03-09] MEDS: Ranolazine 500 MG TAB.ER.12H PO SCH (22:15)
[2017-03-09] MEDS: Acetaminophen 325 MG TABLET PO PRN (23:57)
[2017-03-10 05:03] LABS: Basophils # 0.1 K/mcL (0.0-0.2); Basophils % 0.5 %; Eosinophils # 0.2 K/mcL (0.0-0.6); Eosinophils % 2.3 %; Hematocrit 26.2 % (37.5-50.1); Hemoglobin 8.3 g/dL (12.9-16.9); Immature Granulocytes % 0.2 % (0-4); Lymphocytes # 0.6 K/mcL (0.6-4.6); Mean Corpuscular HGB Conc 31.7 g/dL (31.6-35.5); Mean Corpuscular Hemoglobin 30.3 pg (28.0-33.3); Mean Corpuscular Volume 95.6 fL (83.0-100.0); Mean Platelet Volume 9.1 fL (9.4-12.4); Monocytes # 1.3 K/mcL (0.0-1.3); Neutrophils # 7.2 K/mcL (1.6-8.9); Platelet Count 319 K/mcL (140-400); Red Blood Count 2.74 M/mcL (4.19-5.50); Red Cell Distribution Width 14.1 % (11.5-14.5)
[2017-03-10 05:16] LABS: BUN/Creatinine Ratio 16 (6-26); Blood Urea Nitrogen 22 mg/dL (8-23); Calcium 8.8 mg/dL (8.6-10.3); Carbon Dioxide 26 mEq/L (23-29); Chloride 105 mEq/L (98-107); Glucose 104 mg/dL (70-105); Magnesium 2.1 mg/dL (1.6-2.6); Osmolality,Calculated 288 (280-300); Potassium 4.1 mEq/L (3.5-5.1); Sodium 137 mEq/L (136-145); eGFR For African Americans > 60 (> 60); eGFR For Non-African Americans 50 (> 60)
[2017-03-10] MEDS ORDERED: *HR* Promethazine 25 MG/ML VIAL IVP ONE (08:00)
[2017-03-10] MEDS ORDERED: *HR* FentaNYL (PF) 100 MCG/2 ML VIAL IVP ONE (08:00)
[2017-03-10] MEDS ORDERED: Simethicone 40 MG/0.6 ML MLS IR ONE (08:00)
[2017-03-10] MEDS ORDERED: *HR* Midazolam HCl 5 MG/5 ML VIAL IVP ONE ×2 (08:00→08:03)
[2017-03-10] MEDS ORDERED: Tetracaine/Benzocaine/Butamben 200MG/SPRAY (100SPY/BOT) MM ONE (08:00)
[2017-03-10] MEDS ORDERED: 0.9 % Sodium Chloride 1,000 ML IVC SCH (08:00)
--- NOTE | 2017-03-10 08:00 | Pre-Sedation Evaluation ---
Pre-sedation evaluation - Pre-sedation checklist Recent Vitals: Last Vital Signs Temp 97.8 F 03/10/17 07:38 Pulse 67 03/10/17 07:38 Resp 18 03/10/17 07:38 BP 111/57 03/10/17 07:38 Pulse Ox 92 03/10/17 07:38 Airway Assessment: Patient can open mouth completely, TMJ function normal Possible difficult airway: No ASA Classification *see protocol: CLASS III-Severe systemic disease Plan of Care: Pt appropriate candidate for procedure/moderate/conscious sedation
[2017-03-10] MEDS ORDERED: *HR* FentaNYL (PF) 100 MCG/2 ML VIAL ONE (08:04)
[2017-03-10] MEDS ORDERED: Tetracaine/Benzocaine/Butamben 200MG/SPRAY (100SPY/BOT) ONE (08:04)
[2017-03-10] MEDS ORDERED: Polyethylene Glycol 3350 255 GM POWDER PO ONE (08:31)
--- NOTE | 2017-03-10 08:33 | Event Note ---
Date of Encounter: 03/10/17 Time of Encounter: 08:32 EGD performed-granular mucosa found in the stomach and GE junction. Biopsied. No evidence of ulcers or bleeding. Rectal exam demonstrated stool in the rectum. Colonoscopy aborted. Will reprep and consider colonoscopy tomorrow..
--- NOTE | 2017-03-10 10:09 | Internal Med Progress Note ---
<MylaKenan - Last Filed: 03/10/17 15:27> Date of Encounter: 03/10/17 Time of Encounter: 10:30 - Assessment and plan (1) GI bleed Current Visit: Yes Status: Acute Assessment and plan: Patient's H/H 8.3<7.3<8.0. EGD by Dr. Villa demonstrates no acute bleed, but unable to perform colonoscopy today due to poor bowel prep. Follow-up on biopsy. Patient ok to start clear liquid diet today but NPO after midnight for colonoscopy tomorrow. Repeat bowel prep. Follow-up AM labs and iron studies. Qualifiers: GI bleed type/associated pathology: melena Qualified Code(s): K92.1 - Melena (2) Fall (on) (from) other stairs and steps, initial encounter Current Visit: Yes Status: Acute Assessment and plan: Patient reports falls since changing his blood pressure medication from Benicar to losartan. Head CT is negative Patient's vitals are stable. Hold losartan. Continue fall precautions. (3) Traumatic hematoma of left lower leg Current Visit: Yes Status: Acute Assessment and plan: No acute fracture or dislocation identified on left tibia, fibula or ankle. Continue with fall precautions. Tylenol, [place] 5, for pain management. Qualifiers: Encounter type: initial encounter Qualified Code(s): S80.12XA - Contusion of left lower leg, initial encounter (4) Anemia due to blood loss Current Visit: Yes Status: Acute Assessment and plan: Hemoglobin stable, but below baseline. Plan for colonoscopy tomorrow due to poor bowel prep today. Transfuse if Hb< 7. Blood loss likely of GI etiology. (5) Essential hypertension Current Visit: No Status: Acute Assessment and plan: Blood pressure well managed. - Subjective Interval history: 81M PMHx hypertension, CHF, CAD, TIA presented for left lower extremity pain after fall. He felt lightheaded prior to fall but denies CP. Denies trauma to head. Fell on his left lower extremit and left buttock. Reports that symptoms started after changing blood pressure medication from Benicar to losartan. Today , he continues to have left lower extremity pain, lightheadedness. Denies nausea , vomiting, abdominal pain. He reports being hungry but due to possible colonoscopy, we cannot feed him yet. Continues to have black stool, which he relates to iron pill. - Constitutional Vitals: Temp Pulse Resp BP Pulse Ox 98.2 F 67 14 111/49 95 03/10/17 08:00 03/10/17 08:37 03/10/17 08:37 03/10/17 08:37 03/10/17 08:37 General appearance: Present: A&O X 3, no acute distress - Head Head exam: Present: atraumatic, normocephalic - Eye Eye exam: Present: normal appearance - ENT ENT exam: Present: mucous membranes moist - Neck Neck exam general surgery: Present: full ROM, supple, trachea midline - Respiratory Respiratory exam: Present: CTAB - Cardiovascular Cardiovascular exam: Present: RRR, +S1, +S2 - GI/Abdominal GI/Abdominal exam: Present: normal bowel sounds, soft, no peritoneal signs. Absent: guarding - Extremities Exam Extremities exam: Present: joint swelling, pedal edema, warm, radial pulses palpable and symmetrical Additional comments: Left lower extremity hematoma noted. Tender to palpation. Erythema. - Neurological Exam Neurological exam: Present: alert, CN II-XII intact, oriented X3. Absent: facial droop, speech deficit - Skin Skin exam: Present: dry, intact, warm. Absent: rash Internal Medicine: Result - Labs CBC & Chem 7: 03/10/17 04:27 03/10/17 04:27 Labs: Short CBC 03/09/17 03/09/17 03/09/17 Range/Units 10:17 14:27 21:19 WBC (4.3-11.1) K/mcL Hgb 7.5 L 8.0 L 7.3 L (12.9-16.9) g/dL Hct 23.9 L 25.7 L 23.1 L (37.5-50.1) % Plt Count (140-400) K/mcL Neutrophils # (1.6-8.9) K/mcL 03/10/17 Range/Units 04:27 WBC 9.3 (4.3-11.1) K/mcL Hgb 8.3 L (12.9-16.9) g/dL Hct 26.2 L (37.5-50.1) % Plt Count 319 (140-400) K/mcL Neutrophils # 7.2 (1.6-8.9) K/mcL BMP 03/10/17 04:27 Sodium 137 Potassium 4.1 Chloride 105 Carbon Dioxide 26 BUN 22 Creatinine 1.36 H Glucose 104 Calcium 8.8 - ABG Interpretation ABG results: PT/INR, D-dimer PT 11.9 Seconds (9.4-12.1) 03/08/17 18:58 Consult Discharge Plan - Plan Referrals: Irving Latif Jr, MD [Primary Care Provider] - <Sundar Duffy - Last Filed: 03/10/17 22:51> Date of Encounter: 03/10/17 - Assessment and plan (1) Anemia due to blood loss Current Visit: Yes Status: Acute (2) Essential hypertension Current Visit: No Status: Acute (3) Fall (on) (from) other stairs and steps, initial encounter Current Visit: Yes Status: Acute (4) Frequent falls Current Visit: Yes Status: Acute (5) GI bleed Current Visit: Yes Status: Acute Qualifiers: GI bleed type/associated pathology: melena Qualified Code(s): K92.1 - Melena (6) Traumatic hematoma of left lower leg Current Visit: Yes Status: Acute Qualifiers: Encounter type: initial encounter Qualified Code(s): S80.12XA - Contusion of left lower leg, initial encounter (7) DVT prophylaxis Current Visit: Yes Status: Acute - Constitutional Vitals: Temp Pulse Resp BP Pulse Ox 98.4 F 74 18 137/68 98 03/10/17 20:00 03/10/17 20:00 03/10/17 20:00 03/10/17 20:00 03/10/17 20:00 Internal Medicine: Result - Labs CBC & Chem 7: 03/10/17 04:27 03/10/17 04:27 Labs: Short CBC 03/10/17 Range/Units 04:27 WBC 9.3 (4.3-11.1) K/mcL Hgb 8.3 L (12.9-16.9) g/dL Hct 26.2 L (37.5-50.1) % Plt Count 319 (140-400) K/mcL Neutrophils # 7.2 (1.6-8.9) K/mcL [facility] 03/10/17 04:27 Sodium 137 Potassium 4.1 Chloride 105 Carbon Dioxide 26 BUN 22 Creatinine 1.36 H Glucose 104 Calcium 8.8 - ABG Interpretation ABG results: PT/INR, D-dimer PT 11.9 Seconds (9.4-12.1) 03/08/17 18:58 - Attending Attestation I conducted a face to face diagnostic evaluation of this patient and my medical decision-making was reviewed with the Resident Physician. I agree with the documented findings, disposition and treatment plan as described except to the extent set forth below: I discussed case with general surgery. Agree with starting antibiotics for possible left lower extremity cellulitis. Proceed with colonoscopy in the morning for evaluation of GI bleed. Sundar Duffy MD
[2017-03-10] MEDS: ceFAZolin 1,000 MG in Water for inj. (sterile) 20 ML 10 ML IVP SCH ×3 (11:12→23:19)
[2017-03-10] MEDS: Ranolazine 500 MG TAB.ER.12H PO SCH ×2 (11:13→20:48)
[2017-03-10] MEDS: Finasteride 5 MG TABLET PO SCH (11:13)
[2017-03-10] MEDS: *HR* HYDROcodone/Acet 5/325 mg TABLET PO PRN (20:48)
[2017-03-11] MEDS: *HR* HYDROcodone/Acet 5/325 mg TABLET PO PRN ×3 (04:27→20:00)
[2017-03-11 05:02] LABS: Basophils % 0.6 %; Eosinophils # 0.5 K/mcL (0.0-0.6); Eosinophils % 7.5 %; Hematocrit 24.8 % (37.5-50.1); Hemoglobin 7.7 g/dL (12.9-16.9); Immature Granulocytes % 0.3 % (0-4); Lymphocytes # 0.7 K/mcL (0.6-4.6); Mean Corpuscular Volume 96.5 fL (83.0-100.0); Mean Platelet Volume 9.3 fL (9.4-12.4); Monocytes # 0.9 K/mcL (0.0-1.3); Monocytes % 12.1 %; Neutrophils # 5.1 K/mcL (1.6-8.9); Platelet Count 310 K/mcL (140-400); Red Blood Count 2.57 M/mcL (4.19-5.50); Red Cell Distribution Width 13.8 % (11.5-14.5); Segmented Neutrophils % 70.5 %
[2017-03-11] MEDS ORDERED: Ipratropium/Albuterol Neb 3 ML IH PRN (05:14)
[2017-03-11 05:37] LABS: BUN/Creatinine Ratio 12 (6-26); Blood Urea Nitrogen 14 mg/dL (8-23); Calcium 8.3 mg/dL (8.6-10.3); Carbon Dioxide 26 mEq/L (23-29); Chloride 106 mEq/L (98-107); Glucose 99 mg/dL (70-105); Iron < 10 mcg/dL (65-175); Osmolality,Calculated 283 (280-300); Sodium 136 mEq/L (136-145); Transferrin 185 mg/dL (203-362); eGFR For African Americans > 60 (> 60); eGFR For Non-African Americans 59 (> 60)
[2017-03-11] MEDS: Ranolazine 500 MG TAB.ER.12H PO SCH ×2 (08:40→20:00)
[2017-03-11] MEDS: ceFAZolin 1,000 MG in Water for inj. (sterile) 20 ML 10 ML IVP SCH ×2 (08:40→16:49)
[2017-03-11] MEDS: Finasteride 5 MG TABLET PO SCH (08:40)
[2017-03-11] MEDS ORDERED: *HR* Midazolam HCl 5 MG/5 ML VIAL IVP ONE (14:40)
[2017-03-11] MEDS ORDERED: *HR* FentaNYL (PF) 100 MCG/2 ML VIAL ONE (14:40)
[2017-03-11] MEDS ORDERED: *HR* Midazolam HCl 2 MG/2 ML VIAL IVP ONE (15:32)
[2017-03-11] MEDS ORDERED: *HR* FentaNYL (PF) 100 MCG/2 ML VIAL IVP ONE (15:32)
[2017-03-11] MEDS ORDERED: Simethicone 40 MG/0.6 ML MLS IR ONE (15:32)
[2017-03-11] MEDS ORDERED: *HR* Promethazine 25 MG/ML VIAL IVP ONE (15:32)
--- NOTE | 2017-03-11 15:33 | Pre-Sedation Evaluation ---
Pre-sedation evaluation - Pre-sedation checklist Recent Vitals: Last Vital Signs Temp 98.0 F 03/11/17 14:39 Pulse 68 03/11/17 14:39 Resp 15 03/11/17 14:39 BP 130/61 03/11/17 14:39 Pulse Ox 93 03/11/17 14:39 Airway Assessment: Patient can open mouth completely, TMJ function normal Possible difficult airway: No ASA Classification *see protocol: CLASS III-Severe systemic disease Plan of Care: Pt appropriate candidate for procedure/moderate/conscious sedation
--- NOTE | 2017-03-11 16:03 | Event Note ---
Date of Encounter: 03/11/17 Time of Encounter: 16:02 Colonoscopy completed-small sigmoid diverticulum and small hemorrhoids. No evidence of bleeding. Resume PO diet. Patient can follow up with primary physician as needed. Will sign off; thank you.
--- NOTE | 2017-03-11 18:18 | Internal Med Progress Note ---
Date of Encounter: 03/11/17 Time of Encounter: 18:16 - Assessment and plan (1) Cellulitis Current Visit: Yes Status: Acute Assessment and plan: Acute left leg cellulitis Discontinue Ancef and start IV doxycycline Consider imaging if not improving Qualifiers: Site of cellulitis: extremity Site of cellulitis of extremity: lower extremity Laterality: left Qualified Code(s): L03.116 - Cellulitis of left lower limb (2) CAD (coronary artery disease) Current Visit: Yes Status: Acute Assessment and plan: Effient on hold for now Qualifiers: Coronary Disease-Associated Artery/Lesion type: [place] artery [place] vs. transplanted heart: [place] heart Associated angina: without angina Qualified Code(s): I25.10 - Atherosclerotic heart disease of [place] coronary artery without angina pectoris (3) GI bleed Current Visit: Yes Status: Acute Assessment and plan: Acute blood lows anemia likely secondary to GI bleed exacerbated by Effient EGD by Dr. Villa demonstrates no acute bleed, colonoscopy did not show any source of bleeding May need a capsule study as an outpatient Hemoccult was positive Start omeprazole Qualifiers: GI bleed type/associated pathology: melena Qualified Code(s): K92.1 - Melena (4) Traumatic hematoma of left lower leg Current Visit: Yes Status: Acute Assessment and plan: No acute fracture or dislocation identified on left tibia, fibula or ankle. Continue with fall precautions. Tylenol, Gamaliel 5, for pain management. Hold Effient due to hematoma Qualifiers: Encounter type: initial encounter Qualified Code(s): S80.12XA - Contusion of left lower leg, initial encounter (5) Anemia due to blood loss Current Visit: Yes Status: Acute Assessment and plan: Hemoglobin stable, but below baseline. Transfuse if Hb< 7. Blood loss likely of GI etiology. (6) Essential hypertension Current Visit: No Status: Acute Assessment and plan: Blood pressure well managed. - Subjective Interval history: Left somers pain, no nausea or vomiting, no abdominal pain, no dysuria or diarrhea. No chest pain, feels short of breath - Constitutional Vitals: Temp Pulse Resp BP Pulse Ox 97.6 F 69 16 146/67 91 03/11/17 16:59 03/11/17 18:14 03/11/17 18:14 03/11/17 18:14 01/23/18 18:14 General appearance: Present: A&O X 3, no acute distress - Head Head exam: Present: atraumatic, normocephalic - Eye Eye exam: Present: PERRL, conjuntiva pink, sclera anicteric Pupils: Present: PERRL - Neck Neck exam general surgery: Present: supple, trachea midline. Absent: lymphadenopathy - Respiratory Respiratory exam: Present: CTAB, wheezes (Mild diffuse wheezing). Absent: accessory muscle use, rales, rhonchi - Cardiovascular Cardiovascular exam: Present: RRR, +S1, +S2. Absent: diastolic murmur, gallop, rubs, systolic murmur - GI/Abdominal GI/Abdominal exam: Present: normal bowel sounds, soft, no peritoneal signs. Absent: distended, tenderness - Extremities Exam Extremities exam: Present: warm, radial pulses palpable and symmetrical. Absent : calf tenderness, cyanotic, pedal edema - Neurological Exam Neurological exam: Present: CN II-XII intact, oriented X3, no focal deficits. Absent: pronater drift, facial droop, speech deficit - Skin Skin exam: Present: dry. Absent: intact (Left lower somers hematoma with surrounding erythema and warmth) Internal Medicine: Result - Labs CBC & Chem 7: 03/11/17 04:03 03/11/17 04:03 Labs: Short CBC 03/11/17 Range/Units 04:03 WBC 7.2 (4.3-11.1) K/mcL Hgb 7.7 L (12.9-16.9) g/dL Hct 24.8 L (37.5-50.1) % Plt Count 310 (140-400) K/mcL Neutrophils # 5.1 (1.6-8.9) K/mcL BMP 03/11/17 04:03 Sodium 136 Potassium 4.0 Chloride 106 Carbon Dioxide 26 BUN 14 Creatinine 1.19 Glucose 99 Calcium 8.3 L - ABG Interpretation ABG results: PT/INR, D-dimer PT 11.9 Seconds (9.4-12.1) 03/08/17 18:58 Consult Discharge Plan - Plan Referrals: Irving Latif Jr, MD [Primary Care Provider] -
--- NOTE | 2017-03-11 18:22 | Event Note ---
Date of Encounter: 03/11/17 Time of Encounter: 18:21 Acute mild COPD exacerbation, start prednisone
[2017-03-11] MEDS: Doxycycline 100 MG in 0.9 % Sodium Chloride Mini Bag 100 ML IVPB SCH (18:42)
[2017-03-11] MEDS: predniSONE 20 MG TABLET PO SCH (18:43)
[2017-03-12 05:42] LABS: Basophils % 0.3 %; Hematocrit 24.7 % (37.5-50.1); Hemoglobin 7.6 g/dL (12.9-16.9); Immature Granulocytes % 0.5 % (0-4); Lymphocytes # 0.2 K/mcL (0.6-4.6); Lymphocytes % 2.8 %; Mean Corpuscular HGB Conc 30.8 g/dL (31.6-35.5); Mean Corpuscular Hemoglobin 29.6 pg (28.0-33.3); Mean Corpuscular Volume 96.1 fL (83.0-100.0); Mean Platelet Volume 8.7 fL (9.4-12.4); Monocytes # 0.1 K/mcL (0.0-1.3); Monocytes % 0.8 %; Platelet Count 310 K/mcL (140-400); Red Blood Count 2.57 M/mcL (4.19-5.50); Red Cell Distribution Width 13.6 % (11.5-14.5); Segmented Neutrophils % 95.6 %
[2017-03-12] MEDS: Doxycycline 100 MG in 0.9 % Sodium Chloride Mini Bag 100 ML IVPB SCH ×2 (05:50→19:06)
[2017-03-12 05:55] LABS: Neutrophils # 6.1 K/mcL (1.6-8.9)
[2017-03-12 06:04] LABS: BUN/Creatinine Ratio 13 (6-26); Blood Urea Nitrogen 15 mg/dL (8-23); Calcium 8.6 mg/dL (8.6-10.3); Carbon Dioxide 26 mEq/L (23-29); Chloride 107 mEq/L (98-107); Glucose 183 mg/dL (70-105); Osmolality,Calculated 288 (280-300); Potassium 4.8 mEq/L (3.5-5.1); Sodium 136 mEq/L (136-145); eGFR For African Americans > 60 (> 60); eGFR For Non-African Americans 60 (> 60)
[2017-03-12 06:38] LABS: Platelet Estimate Normal (Normal)
--- NOTE | 2017-03-12 07:52 | Electrocardiograph Report ---
[address] [address] Test Date: 2017-03-08 Pat Name: Stephan Howe Department: 102 Room: 3B54 Gender: M [employer] Combination: Am : 1935 Requested By: Aracely Roman Order Number: [id number] Reading MD: Clarke Roldan MD Measurements Intervals [place] Rate: 67 P: 73 [place]: 176 QRS: 51 QRSD: 88 T: 56 QT: 366 QTc: 381 Interpretive Statements SINUS RHYTHM BASELINE ARTIFACT Electronically Signed On 03-12-2017 5:45:19 EST by Clarke Roldan MD
[2017-03-12] MEDS: predniSONE 20 MG TABLET PO SCH ×2 (08:51→20:45)
[2017-03-12] MEDS: Finasteride 5 MG TABLET PO SCH (08:51)
[2017-03-12] MEDS: Ranolazine 500 MG TAB.ER.12H PO SCH ×2 (08:51→20:45)
--- NOTE | 2017-03-12 15:56 | Internal Med Progress Note ---
Date of Encounter: 03/12/17 Time of Encounter: 15:54 - Assessment and plan (1) Traumatic hematoma of left lower leg Current Visit: Yes Status: Acute Assessment and plan: No acute fracture or dislocation identified on left tibia, fibula or ankle However since pt still c/o severe pain and hemaotma is not resolving so will get MRI of Leg Also consulted Ortho for further eval Cont holding Effient due to hematoma Qualifiers: Encounter type: initial encounter Qualified Code(s): S80.12XA - Contusion of left lower leg, initial encounter (2) Anemia due to blood loss Current Visit: Yes Status: Acute Assessment and plan: Multi factorial - could be due to Hematoma with fall + GI occult bleed Hemoglobin stable, but below baseline. Transfuse if Hb< 7. (3) GI bleed Current Visit: Yes Status: Acute Assessment and plan: Hemoccult positive..Pt is also on Iron supplements however EGD by Dr. Villa demonstrates no acute bleed, colonoscopy did not show any source of bleeding cont holding effieint for now stable Hb so far Cont omeprazole Qualifiers: GI bleed type/associated pathology: melena Qualified Code(s): K92.1 - Melena (4) Essential hypertension Current Visit: No Status: Acute Assessment and plan: Blood pressure well managed. (5) CAD (coronary artery disease) Current Visit: Yes Status: Acute Assessment and plan: Effient on hold for now Qualifiers: Coronary Disease-Associated Artery/Lesion type: [place] artery [place] vs. transplanted heart: [place] heart Associated angina: without angina Qualified Code(s): I25.10 - Atherosclerotic heart disease of [place] coronary artery without angina pectoris - Subjective Interval history: Mr. Howe is a 81 year old male with past medical history significant for hypertension, CHF, CAD and TIA who presented to the hospital for evaluation of left lower extremity pain after he suffered a fall. He fell 4 days ago down some stairs and injured his left leg and left buttock. He felt lightheaded prior to falling but denies chest pain. He reports a aching, moderate to severe pain in the left lower leg, worse with bearing weight, improved with ibuprofen and morphine which he received in the emergency department. He also reports long-standing history of black stool which he relates to taking iron pill. Denies abdominal pain, nausea vomiting diarrhea, hematemesis, dysuria. He had a colonoscopy which she believes was 3 years ago and was unremarkable. Workup done in the emergency department was pertinent for hemoglobin of 8.5 and positive fecal occult blood testing. Lower leg x-rays revealed no evidence of a fracture. Pt was admitted in the hospital and started him on empirical abx Ancef and symptomatic care. He is alert, awake and O x 3. Denied any CP / SOB. c/o severe pain in Left leg with swelling. - Constitutional Vitals: Temp Pulse Resp BP Pulse Ox 97.9 F 72 16 148/63 99 03/12/17 15:28 03/12/17 15:28 03/12/17 15:28 03/12/17 15:28 03/12/17 15:28 General appearance: Present: A&O X 3, no acute distress - Head Head exam: Present: atraumatic, normal inspection - Neck Neck exam general surgery: Present: supple - Respiratory Respiratory exam: Present: decreased breath sounds, wheezes (mild to moderate). Absent: rales, respiratory distress, rhonchi - Cardiovascular Cardiovascular exam: Present: +S1, +S2. Absent: tachycardia - GI/Abdominal GI/Abdominal exam: Present: normal bowel sounds, soft. Absent: rebound, rigid, tenderness - Extremities Exam Extremities exam: Present: pedal edema, tenderness (5x6 cm size large hematoma over Letf leg distally, lateral region.. Tenderness ++. Erythema over lower 1/3 of Left Leg). Absent: calf tenderness - Back Exam Back exam: Absent: CVA tenderness (L), CVA tenderness (R) Internal Medicine: Result - Labs CBC & Chem 7: 03/12/17 05:26 03/12/17 05:26 Labs: Short CBC 03/12/17 Range/Units 05:26 WBC 6.4 (4.3-11.1) K/mcL Hgb 7.6 L (12.9-16.9) g/dL Hct 24.7 L (37.5-50.1) % Plt Count 310 (140-400) K/mcL Neutrophils # 6.1 (1.6-8.9) K/mcL BMP 03/12/17 05:26 Sodium 136 Potassium 4.8 Chloride 107 Carbon Dioxide 26 BUN 15 Creatinine 1.17 Glucose 183 H Calcium 8.6 - ABG Interpretation ABG results: PT/INR, D-dimer PT 11.9 Seconds (9.4-12.1) 03/08/17 18:58 Consult Discharge Plan - Plan Referrals: Irving Latif Jr, MD [Primary Care Provider] - 03/17/17 12:00 pm
--- NOTE | 2017-03-12 16:11 | Orthopedic Consult Note ---
Date of Encounter: 03/12/17 Time of Encounter: 16:40 Assessment and Plan (1) Cellulitis Current Visit: Yes Status: Acute Qualifiers: Site of cellulitis: extremity Site of cellulitis of extremity: lower extremity Laterality: left Qualified Code(s): L03.116 - Cellulitis of left lower limb (2) Fall (on) (from) other stairs and steps, initial encounter Current Visit: Yes Status: Acute (3) Traumatic hematoma of left lower leg Current Visit: Yes Status: Acute Discussed with Dr. Kearns. Awaiting MRI results - these will likely determine necessary next actions Request consult to IR to aspirate and culture aspriate of the hematoma Continue antibiotics and other medical care as indicated per medical team Will continue to follow Thank you for this consultation Qualifiers: Encounter type: initial encounter Qualified Code(s): S80.12XA - Contusion of left lower leg, initial encounter History of Present Illness Chief complaint: Left leg hematoma/cellulitis HPI: Mr. Howe is a 81 year old male presenting to [facility] following repeatitive falls after change in his blood pressure per patient almost 1 month ago. During one such fall he admits to hitting his left leg. Patient has been on Effient for history of TIA and [place]. He was found to be anemic and had EGD/Colonoscopy by Dr. Villa 2 days ago demonstrating no evidence of ulcers or bleeding. His left leg continues to demonstrate hematoma and now has concern for cellulitis per hospitalist. Dr. Kearns ordered MRI upon consult. No results yet available. Patient relates that last Friday, on 03/05/17 he got dizzy and fell hitting his shins on steps. He states that the left somers became swollen very quickly after injury and has persisted. He denies changing appearance or size of swollen area over the past week. He admits to ability to walk, stating his first few steps are painful, but after that he can walk just fine per patient. He admits to tenderness over the swollen area and his foot but denies any other complaints with relation to his bilateral lower legs. He admits to full sensation, denying any numbness or paresthesias. Patient is now on IV Doxycycline for cellulitis per medical team. Imaging thus far reveals: HISTORY: ORDERING SYSTEM PROVIDED HISTORY: fall Additional tech notes: WR; ORDERING SYSTEM PROVIDED HISTORY: fall FINDINGS: Three views of the left ankle demonstrate normal bony alignment. Soft tissues are unremarkable. No fracture is appreciated. Two views of the left tibia and fibula demonstrate no acute fracture. Soft tissue swelling is noted laterally. XR/XR tibia fibula LT IMPRESSION: No acute fracture or dislocation identified about the left tibia and fibula or ankle. Soft tissue swelling is noted. D/ / Fidencio Grey MD / Fidencio Grey MD Interpreting Provider: Fidencio Grey MD Exam: Patient resting comfortably in bed with nasal cannula in place. He is alert and oriented. He readily points to his left leg as his only source of pain. His left lower leg demonstrates appx 1cm healing abrasion to tibial tubercule area as well as swollen oval area of fixed non-pitting edema of appx 3cm in size and 1cm deep to anterolateral somers appx 10cm proximal from the lateral malleolus. The skin surrounding this area is tense and ecchymotic. No drainage or bleeding noted. Left foot demonstrates pitting edema 3+ to dorsal aspect. No pulses able to be palpated to left foot or posterior tibial region however patient's left foot is sensate, warm to touch, with appropriate cap refill. Ankle and toe motion intact. Right lower extremity demonstrates linear abrasion in line with left leg hematoma along anterior somers. Right foot demonstrates 1+ pitting edema to dorsal foot. Posterior tibial and pedal pulses strong and intact. ROM right foot, ankle and knee intact. ROM left knee intact. Assessment: Traumatic hematoma of left lower leg with superimposed cellulitis Discussed with Dr. Kearns. Awaiting MRI results - these will likely determine necessary next actions Request consult to IR to aspirate and culture aspriate of the hematoma Continue antibiotics and other medical care as indicated per medical team Will continue to follow Thank you for this consultation Past Med Surg Social Fam HX - Past Medical History Medical history: CHF, myocardial infarction, TIA Psychiatric history: no psych history - Past Surgical History Surgical History: angioplasty/stent, cataract, herniorrhaphy - Social History Smoking Status: Never smoker Smokeless Tobacco Status: No Alcohol use: none Drug use: none - Family History Mother Living Status: Hx Family Cancer: Yes (Brain Cancer) Father Living Status: Cause of : Heart problems Hx Family Cardiac Disorders: Yes Medications and Allergies Docusate [Colace] 100 mg PO DAILY PRN 03/09/17 [History] Ferrous Sulfate [Iron] 325 mg PO BID 03/09/17 [History] Finasteride [Proscar] 5 mg PO DAILY 03/09/17 [History] Furosemide [Lasix] 20 mg PO DAILY PRN 03/09/17 [History] Losartan Potassium [Cozaar] 100 mg PO DAILY 03/09/17 [History] Multivit-Min/FA/Lycopen/Lutein [Centrum Silver Men Tablet] 1 tab PO DAILY [History] Prasugrel [Effient] 10 mg PO DAILY 03/09/17 [History] Ranolazine [Ranexa] 1,000 mg PO BID 03/09/17 [History] Simvastatin [Zocor] 20 mg PO DAILY 03/09/17 [History] Tamsulosin [Flomax] 0.4 mg PO DAILY 03/09/17 [History] 3 Allergy/AdvReac Type Severity Reaction Status Date / Time bacitracin [From Polysporin] Allergy Hives Verified 03/08/17 17:11 Neomycin Allergy Hives Verified 03/08/17 17:11 [From Neosporin ([id number])] polymyxin B [From Polysporin] Allergy Hives Verified 03/08/17 17:11 All Systems Reviewed: A 10-system review of systems was performed and is negative for pertinent findings except as documented above in the HPI. Physical Exam - Constitutional Vitals: Temp Pulse Resp BP Pulse Ox 97.9 F 72 16 148/63 99 03/12/17 15:28 03/12/17 15:28 03/12/17 15:28 03/12/17 15:28 03/12/17 15:28 Results - Labs Result Diagrams: 03/12/17 05:26 03/12/17 05:26 Labs: Abnormal lab results RBC 2.57 M/mcL (4.19-5.50) L 03/12/17 05:26 Hgb 7.6 g/dL (12.9-16.9) L 03/12/17 05:26 Hct 24.7 % (37.5-50.1) L 03/12/17 05:26 MCHC 30.8 g/dL (31.6-35.5) L 03/12/17 05:26 MPV 8.7 fL (9.4-12.4) L 03/12/17 05:26 Lymphocytes # 0.2 K/mcL (0.6-4.6) L 03/12/17 05:26 Glucose 183 mg/dL (70-105) H 03/12/17 05:26 Iron < 10 mcg/dL (65-175) L 03/11/17 04:03 Transferrin 185 mg/dL (203-362) L 03/11/17 04:03 Stool Occult Blood Positive (Negative) A 03/08/17 21:41 H & H 03/12/17 Range/Units 05:26 Hgb 7.6 L (12.9-16.9) g/dL Hct 24.7 L (37.5-50.1) % All other labs normal. Consult Discharge Plan - Plan Referrals: Irving Latif Jr, MD [Primary Care Provider] - 03/17/17 12:00 pm
[2017-03-12] MEDS: Ipratropium/Albuterol Neb 3 ML IH SCH ×3 (16:34→23:57)
--- NOTE | 2017-03-12 17:53 | Event Note ---
Date of Encounter: 03/12/17 Time of Encounter: 17:52 S/W Dr. Lim with cols rad re: aspiration. Order placed based on discussion with him for IR to potentially perform tomorrow.
[2017-03-13] MEDS: Acetaminophen 325 MG TABLET PO PRN ×2 (00:36→17:21)
[2017-03-13] MEDS: Ipratropium/Albuterol Neb 3 ML IH SCH ×6 (03:58→23:46)
[2017-03-13 05:18] LABS: Hematocrit 21.7 % (37.5-50.1); Hemoglobin 6.9 g/dL (12.9-16.9); Immature Granulocytes % 0.6 % (0-4); Lymphocytes # 0.3 K/mcL (0.6-4.6); Lymphocytes % 3.3 %; Mean Corpuscular HGB Conc 31.8 g/dL (31.6-35.5); Mean Corpuscular Hemoglobin 29.9 pg (28.0-33.3); Mean Corpuscular Volume 93.9 fL (83.0-100.0); Mean Platelet Volume 9.4 fL (9.4-12.4); Monocytes # 0.4 K/mcL (0.0-1.3); Monocytes % 3.7 %; Platelet Count 301 K/mcL (140-400); Red Blood Count 2.31 M/mcL (4.19-5.50); Red Cell Distribution Width 13.7 % (11.5-14.5); Segmented Neutrophils % 92.4 %
[2017-03-13 05:29] LABS: Neutrophils # 9.3 K/mcL (1.6-8.9)
[2017-03-13 05:57] LABS: BUN/Creatinine Ratio 18 (6-26); Blood Urea Nitrogen 24 mg/dL (8-23); Calcium 8.9 mg/dL (8.6-10.3); Carbon Dioxide 23 mEq/L (23-29); Chloride 106 mEq/L (98-107); Glucose 165 mg/dL (70-105); Osmolality,Calculated 288 (280-300); Potassium 4.5 mEq/L (3.5-5.1); Sodium 135 mEq/L (136-145); eGFR For African Americans > 60 (> 60); eGFR For Non-African Americans 52 (> 60)
[2017-03-13] MEDS: Doxycycline 100 MG in 0.9 % Sodium Chloride Mini Bag 100 ML IVPB SCH ×2 (06:23→17:16)
[2017-03-13] MEDS: Ranolazine 500 MG TAB.ER.12H PO SCH ×2 (07:51→21:16)
[2017-03-13] MEDS: predniSONE 20 MG TABLET PO SCH ×2 (07:52→21:16)
[2017-03-13] MEDS: Finasteride 5 MG TABLET PO SCH (07:52)
--- NOTE | 2017-03-13 11:31 | IR Procedure Note ---
Date of procedure: 03/13/17 Consent Obtained: Verbal consent, Written consent Timeout: Correct patient and procedure verified, Correct site verified, Time out performed, Skin prep completed Local anesthetic: Lidocaine 1% Indications: L distal calf hematoma Procedure Performed: aspiration Was there an automobile mechanic assistant present: No Results/Findings: 20 cc chronic hematoma aspirated; no gross purulence seen Estimated blood loss (cc): 0 Complications: None; Tolerated procedure well Post Procedure Treatment Plan: fluid cx Specimen: 20 cc
--- NOTE | 2017-03-13 12:24 | Orthopedics Progress Note ---
Date of Encounter: 03/13/17 Time of Encounter: 12:30 - Assessment and Plan (1) Cellulitis Current Visit: Yes Status: Acute Qualifiers: Site of cellulitis: extremity Site of cellulitis of extremity: lower extremity Laterality: left Qualified Code(s): L03.116 - Cellulitis of left lower limb (2) Fall (on) (from) other stairs and steps, initial encounter Current Visit: Yes Status: Acute (3) Traumatic hematoma of left lower leg Current Visit: Yes Status: Acute Cleanse hematoma with each dressing change to aspiration site. Dressing change to left lower leg twice daily after cleansing with soap and water until well healed. Discussed plan with Dr. Kearns. At this point hematoma is improving and therefore very unlikely to be involved in patient's ongoing anemia. Concern for infection decreased as patient has continued to be on antibiotics. Swelling to foot improved. Continue evaluation of anemia and other health conditions per medical team. Will continue to follow for culture results. Qualifiers: Encounter type: initial encounter Qualified Code(s): S80.12XA - Contusion of left lower leg, initial encounter Subjective Principal diagnosis: left leg hematoma Interval history: Mr. Howe is a 81 year old male presenting to [facility] following repeatitive falls after change in his blood pressure per patient almost 1 month ago. During one such fall he admits to hitting his left leg. Patient has been on Effient for history of TIA and [place]. He was found to be anemic and had EGD/Colonoscopy by Dr. Villa 2 days ago demonstrating no evidence of ulcers or bleeding. His left leg continues to demonstrate hematoma and now has concern for cellulitis per hospitalist. Dr. Kearns ordered MRI upon consult. No results yet available. Patient relates that last Friday, on 03/05/17 he got dizzy and fell hitting his shins on steps. He states that the left somers became swollen very quickly after injury and has persisted. He denies changing appearance or size of swollen area over the past week. He admits to ability to walk, stating his first few steps are painful, but after that he can walk just fine per patient. He admits to tenderness over the swollen area and his foot but denies any other complaints with relation to his bilateral lower legs. He admits to full sensation, denying any numbness or paresthesias. Patient is now on IV Doxycycline for cellulitis per medical team. On exam patient sitting at bedside eating lunch resting comfortably. Left lower leg edema greatly improved, left foot now to 1+ pitting edema. Hematoma reduced in size after aspiration. Dressing in place to aspiration site with no drainage. Neurovascularly intact. EXAMINATION: MRI OF THE LOWER LEFT EXTREMITY WITHOUT CONTRAST 03/12/2017 7:22 pm TECHNIQUE: Multiplanar multisequence MRI of the left lower extremity was performed without the administration of intravenous contrast. COMPARISON: None. HISTORY: ORDERING SYSTEM PROVIDED HISTORY: Large left leg hematoma s/p fall Concern for fracture. FINDINGS: Diffuse edema within the soft tissues. Edema also noted within the medial head of the gastrocnemius. No evidence of high-grade muscle tear. No intramuscular hematoma or fluid collection. Multiloculated 1.8 x 0.6 x 3.6 cm cystic lesion which appears to arise from the proximal tibiofibular joint and extends posteromedially. Findings likely represent a ganglion. Complex 5.2 x 2.4 x 7.5 cm fluid collection within the soft tissues of the anterolateral calf. No extension into the underlying fascia. MR/MR lower leg LT wo con IMPRESSION: No acute fracture. Diffuse soft tissue edema. 5.2 x 2.4 x 7.5 cm complex fluid collection within the soft tissues anterolateral calf likely representing hematoma given patient's history of fall. Low-grade strain of the medial head gastrocnemius. 1.8 x 0.6 x 3.6 cm probable ganglion cyst arising from the proximal tibiofibular joint. D/ / Gabriella Lam MD / Gabriella Lam MD Interpreting Provider: Gabriella Lam MD aspiration performed this morning. Cultures requested of the aspirate. Assessment: left lower leg hematoma Plan: Cleanse hematoma with each dressing change to aspiration site. Dressing change to left lower leg twice daily after cleansing with soap and water until well healed. Discussed plan with Dr. Kearns. At this point hematoma is improving and therefore very unlikely to be involved in patient's ongoing anemia. Concern for infection decreased as patient has continued to be on antibiotics. Swelling to foot improved. Continue evaluation of anemia and other health conditions per medical team. Will continue to follow for culture results. Objective Vital signs: Vital Signs Temp Pulse Resp BP Pulse Ox 03/13/17 11:27 97.3 F L 75 18 161/69 95 03/13/17 07:40 18 96 03/13/17 07:39 97.9 F 61 18 145/68 96 03/13/17 03:58 18 95 03/12/17 23:58 18 96 03/12/17 22:50 98.1 F 80 16 110/50 95 03/12/17 20:53 18 96 03/12/17 18:56 98.1 F 75 16 146/59 97 03/12/17 16:34 16 99 03/12/17 15:28 97.9 F 72 16 148/63 99 03/12/17 12:32 97.5 F L 67 15 150/67 97 Intake and Output 03/12/17 03/13/17 03/13/17 23:59 07:59 15:59 Intake Total 100 / 100 100 / 100 Balance 100 / 100 100 / 100 Intake: IV Fluids 100 / 100 100 / 100 Doxycycline 100 MG In 0.9 % 100 / 100 100 / 100 Sodium Chloride (Mini-Bag +) 100 ML @ 100 mls/hr IVPB Q12HR [facility] Rx#:[id number] - Labs CBC & BMP: 03/13/17 04:34 03/13/17 04:34 Labs: Abnormal lab results RBC 2.31 M/mcL (4.19-5.50) L 03/13/17 04:34 Hgb 6.9 g/dL (12.9-16.9) L 03/13/17 04:34 Hct 21.7 % (37.5-50.1) L 03/13/17 04:34 Neutrophils # 9.3 K/mcL (1.6-8.9) H 03/13/17 04:34 Lymphocytes # 0.3 K/mcL (0.6-4.6) L 03/13/17 04:34 Sodium 135 mEq/L (136-145) L 03/13/17 04:34 BUN 24 mg/dL (8-23) H 03/13/17 04:34 Creatinine 1.32 mg/dL (0.70-1.30) H 03/13/17 04:34 Est GFR (Non-Af Amer) 52 (> 60) L 03/13/17 04:34 Glucose 165 mg/dL (70-105) H 03/13/17 04:34 Iron < 10 mcg/dL (65-175) L 03/11/17 04:03 Transferrin 185 mg/dL (203-362) L 03/11/17 04:03 Stool Occult Blood Positive (Negative) A 03/08/17 21:41 Consult Discharge Plan - Plan Referrals: Irving Latif Jr, MD [Primary Care Provider] - 03/17/17 12:00 pm
--- NOTE | 2017-03-13 16:55 | Internal Med Progress Note ---
Date of Encounter: 03/13/17 Time of Encounter: 14:00 - Assessment and plan (1) Traumatic hematoma of left lower leg Current Visit: Yes Status: Acute Assessment and plan: No acute fracture or dislocation identified on left tibia, fibula or ankle MRI of leg showed diffuse edema and hematoma Ortho on board Had aspiration of hematoma by IR today.. removed 20CC fluid will f/u on fluid analysis and cx Cont holding Effient due to hematoma cont empirical abx Qualifiers: Encounter type: initial encounter Qualified Code(s): S80.12XA - Contusion of left lower leg, initial encounter (2) Anemia due to blood loss Current Visit: Yes Status: Acute Assessment and plan: Multi factorial - could be due to Hematoma with fall + GI occult bleed Hb dropped down to 6.9 s/p EGD and Colonoscopy no signs of active bleeding cont close monitoring will transfuse 2 U PRBC May need out pt endo capsular studies He does have severe Iron def anemia too will give him IV Iron (3) GI bleed Current Visit: Yes Status: Acute Assessment and plan: Hemoccult positive..Pt is also on Iron supplements however EGD by Dr. Villa demonstrates no acute bleed, colonoscopy did not show any source of bleeding cont holding effieint for now Cont omeprazole Qualifiers: GI bleed type/associated pathology: melena Qualified Code(s): K92.1 - Melena (4) Essential hypertension Current Visit: No Status: Acute Assessment and plan: Blood pressure well managed. (5) CAD (coronary artery disease) Current Visit: Yes Status: Acute Assessment and plan: Effient on hold for now Qualifiers: Coronary Disease-Associated Artery/Lesion type: [place] artery [place] vs. transplanted heart: [place] heart Associated angina: without angina Qualified Code(s): I25.10 - Atherosclerotic heart disease of [place] coronary artery without angina pectoris - Subjective Interval history: Mr. Howe is a 81 year old male with past medical history significant for hypertension, CHF, CAD and TIA who presented to the hospital for evaluation of left lower extremity pain after he suffered a fall. He fell 4 days ago down some stairs and injured his left leg and left buttock. He felt lightheaded prior to falling but denies chest pain. He reports a aching, moderate to severe pain in the left lower leg, worse with bearing weight, improved with ibuprofen and morphine which he received in the emergency department. He also reports long-standing history of black stool which he relates to taking iron pill. Denies abdominal pain, nausea vomiting diarrhea, hematemesis, dysuria. He had a colonoscopy which she believes was 3 years ago and was unremarkable. Workup done in the emergency department was pertinent for hemoglobin of 8.5 and positive fecal occult blood testing. Lower leg x-rays revealed no evidence of a fracture. Pt was admitted in the hospital and started him on empirical abx Ancef and symptomatic care. Today he is alert, awake and O x 3. Denied any CP / SOB. Just came back from IR after aspiration of hematoma. Removed 20 CC fluid. Pt states he is feeling little better today - Constitutional Vitals: Temp Pulse Resp BP Pulse Ox 97.7 F 74 18 162/71 100 03/13/17 16:39 03/13/17 16:39 03/13/17 16:39 03/13/17 16:39 03/13/17 16:39 General appearance: Present: A&O X 3, no acute distress - Head Head exam: Present: atraumatic, normal inspection - Neck Neck exam general surgery: Present: supple - Respiratory Respiratory exam: Present: decreased breath sounds. Absent: rales, respiratory distress, rhonchi, wheezes - Cardiovascular Cardiovascular exam: Present: RRR, +S1, +S2. Absent: tachycardia - GI/Abdominal GI/Abdominal exam: Present: normal bowel sounds, soft. Absent: rebound, rigid, tenderness - Extremities Exam Extremities exam: Present: pedal edema, tenderness (Left leg josef lateral region). Absent: calf tenderness Additional comments: Improved swelling and erythema over Left leg josef lateral region - Back Exam Back exam: Absent: CVA tenderness (L), CVA tenderness (R) - Psychiatric Psychiatric exam: Present: normal affect, normal mood Internal Medicine: Result - Labs CBC & Chem 7: 03/13/17 04:34 03/13/17 04:34 Labs: Short CBC 03/13/17 Range/Units 04:34 WBC 10.1 D (4.3-11.1) K/mcL Hgb 6.9 L (12.9-16.9) g/dL Hct 21.7 L (37.5-50.1) % Plt Count 301 (140-400) K/mcL Neutrophils # 9.3 H (1.6-8.9) K/mcL BMP 01/25/18 04:34 Sodium 135 L Potassium 4.5 Chloride 106 Carbon Dioxide 23 BUN 24 H Creatinine 1.32 H Glucose 165 H Calcium 8.9 - ABG Interpretation ABG results: PT/INR, D-dimer PT 11.9 Seconds (9.4-12.1) 03/08/17 18:58 - Impressions Impressions Lower Extremity MRI 03/12/17 15:51 IMPRESSION: No acute fracture. Diffuse soft tissue edema. 5.2 x 2.4 x 7.5 cm complex fluid collection within the soft tissues anterolateral calf likely representing hematoma given patient's history of fall. Low-grade strain of the medial head gastrocnemius. 1.8 x 0.6 x 3.6 cm probable ganglion cyst arising from the proximal tibiofibular joint. D/ / Gabriella Lam MD / Gabriella Lam MD Interpreting Provider: Gabriella Lam MD Guidance Needle Placement Ultrasound 03/13/17 00:00 IMPRESSION: Successful ultrasound-guided aspiration of a left calf subcutaneous hematoma. D/ / Stephan Patton MD / Stephan Patton MD Interpreting Provider: Stephan Patton MD Puncture Aspiration 03/13/17 00:00 IMPRESSION: Successful ultrasound-guided aspiration of a left calf subcutaneous hematoma. D/ / Stephan Patton MD / Stephan Patton MD Interpreting Provider: Stephan Patton MD Consult Discharge Plan - Plan Referrals: Irving Latif Jr, MD [Primary Care Provider] - 03/17/17 12:00 pm
[2017-03-14] MEDS: Ipratropium/Albuterol Neb 3 ML IH SCH ×6 (04:09→23:36)
[2017-03-14 05:24] LABS: Basophils % 0.1 %; Hematocrit 22.4 % (37.5-50.1); Hemoglobin 6.9 g/dL (12.9-16.9); Immature Granulocytes % 1.9 % (0-4); Lymphocytes # 0.2 K/mcL (0.6-4.6); Lymphocytes % 2.1 %; Mean Corpuscular HGB Conc 30.8 g/dL (31.6-35.5); Mean Corpuscular Hemoglobin 29.1 pg (28.0-33.3); Mean Corpuscular Volume 94.5 fL (83.0-100.0); Monocytes # 0.4 K/mcL (0.0-1.3); Monocytes % 4.5 %; Neutrophils # 8.9 K/mcL (1.6-8.9); Nucleated Red Blood Cells 0.2 /100 WBC (0); Platelet Count 315 K/mcL (140-400); Red Blood Count 2.37 M/mcL (4.19-5.50); Segmented Neutrophils % 91.4 %
[2017-03-14] MEDS: Doxycycline 100 MG in 0.9 % Sodium Chloride Mini Bag 100 ML IVPB SCH ×2 (06:00→20:55)
[2017-03-14] MEDS: Acetaminophen 325 MG TABLET PO PRN ×3 (06:59→23:36)
[2017-03-14] MEDS: Finasteride 5 MG TABLET PO SCH (09:18)
[2017-03-14] MEDS: predniSONE 20 MG TABLET PO SCH (09:18)
[2017-03-14] MEDS: Ranolazine 500 MG TAB.ER.12H PO SCH ×2 (09:18→20:56)
[2017-03-14] MEDS ORDERED: 0.9 % Sodium Chloride 250 ML ONE ×2 (10:46→15:56)
--- NOTE | 2017-03-14 17:18 | Internal Med Progress Note ---
Date of Encounter: 03/14/17 Time of Encounter: 15:00 - Assessment and plan (1) Traumatic hematoma of left lower leg Current Visit: Yes Status: Acute Assessment and plan: No acute fracture or dislocation identified on left tibia, fibula or ankle MRI of leg showed diffuse edema and hematoma Ortho on board Had aspiration of hematoma by IR.. removed 20CC fluid fluid cx - did not grow anything Cont holding Effient due to hematoma cont empirical abx Doxy Qualifiers: Encounter type: initial encounter Qualified Code(s): S80.12XA - Contusion of left lower leg, initial encounter (2) Anemia due to blood loss Current Visit: Yes Status: Acute Assessment and plan: Multi factorial - could be due to Hematoma with fall + GI occult bleed Hb dropped down to 6.9 s/p EGD and Colonoscopy no signs of active bleeding cont close monitoring will transfuse 2 U PRBC May need out pt endo capsular studies He does have severe Iron def anemia too will give him IV Iron x 3 days (3) GI bleed Current Visit: Yes Status: Acute Assessment and plan: Hemoccult positive..Pt is also on Iron supplements however EGD by Dr. Villa demonstrates no acute bleed, colonoscopy did not show any source of bleeding cont holding effieint for now Cont omeprazole Qualifiers: GI bleed type/associated pathology: melena Qualified Code(s): K92.1 - Melena (4) Essential hypertension Current Visit: No Status: Acute Assessment and plan: fairly controlled will resume home med Cozaar started on IV hydralazine PRN (5) CAD (coronary artery disease) Current Visit: Yes Status: Acute Assessment and plan: Effient on hold for now Qualifiers: Coronary Disease-Associated Artery/Lesion type: [place] artery [place] vs. transplanted heart: [place] heart Associated angina: without angina Qualified Code(s): I25.10 - Atherosclerotic heart disease of [place] coronary artery without angina pectoris - Subjective Interval history: Mr. Howe is a 81 year old male with past medical history significant for hypertension, CHF, CAD and TIA who presented to the hospital for evaluation of left lower extremity pain after he suffered a fall. He fell 4 days ago down some stairs and injured his left leg and left buttock. He felt lightheaded prior to falling but denies chest pain. He reports a aching, moderate to severe pain in the left lower leg, worse with bearing weight, improved with ibuprofen and morphine which he received in the emergency department. He also reports long-standing history of black stool which he relates to taking iron pill. Denies abdominal pain, nausea vomiting diarrhea, hematemesis, dysuria. He had a colonoscopy which she believes was 3 years ago and was unremarkable. Workup done in the emergency department was pertinent for hemoglobin of 8.5 and positive fecal occult blood testing. Lower leg x-rays revealed no evidence of a fracture. Pt was admitted in the hospital and started him on empirical abx Ancef and symptomatic care. Today he is alert, awake and O x 3. Denied any CP / SOB. Had aspiration of hematoma by IR on 03/13/17. Removed 20 CC fluid. Pt states he is feeling little better today. Pain also tolerable with current regimen. - Constitutional Vitals: Temp Pulse Resp BP Pulse Ox 98.7 F 56 18 161/78 98 03/14/17 16:20 03/14/17 16:20 03/14/17 16:20 03/14/17 16:20 03/14/17 16:20 General appearance: Present: A&O X 3, no acute distress - Head Head exam: Present: atraumatic, normal inspection - Neck Neck exam general surgery: Present: supple - Respiratory Respiratory exam: Present: decreased breath sounds. Absent: rales, respiratory distress, rhonchi, wheezes - Cardiovascular Cardiovascular exam: Present: RRR, +S1, +S2. Absent: tachycardia - GI/Abdominal GI/Abdominal exam: Present: normal bowel sounds, soft. Absent: rebound, rigid, tenderness - Extremities Exam Extremities exam: Present: tenderness (Left leg distally.. josef lateral region.. ). Absent: calf tenderness, pedal edema Additional comments: Improving erythema and swelling - Back Exam Back exam: Absent: CVA tenderness (L), CVA tenderness (R) - Neurological Exam Neurological exam: Present: alert, oriented X3 - Psychiatric Psychiatric exam: Present: normal affect, normal mood Internal Medicine: Result - Labs CBC & Chem 7: 03/14/17 04:40 03/13/17 04:34 Labs: Short CBC 03/14/17 Range/Units 04:40 WBC 9.7 (4.3-11.1) K/mcL Hgb 6.9 L (12.9-16.9) g/dL Hct 22.4 L (37.5-50.1) % Plt Count 315 (140-400) K/mcL Neutrophils # 8.9 (1.6-8.9) K/mcL - ABG Interpretation ABG results: PT/INR, D-dimer PT 11.9 Seconds (9.4-12.1) 03/08/17 18:58 Consult Discharge Plan - Plan Referrals: Irving Latif Jr, MD [Primary Care Provider] - 03/17/17 12:00 pm
--- NOTE | 2017-03-14 17:30 | Orthopedics Progress Note ---
Date of Encounter: 03/14/17 Time of Encounter: 17:00 - Assessment and Plan (1) Cellulitis Current Visit: Yes Status: Acute Qualifiers: Qualified Code(s): L03.116 - Cellulitis of left lower limb (2) Fall (on) (from) other stairs and steps, initial encounter Current Visit: Yes Status: Acute (3) Traumatic hematoma of left lower leg Current Visit: Yes Status: Acute Cleanse hematoma with each dressing change to aspiration site. Dressing change to left lower leg twice daily after cleansing with soap and water until well healed. Discussed dressing changes with nurse Carla. Discussed plan with Dr. Kearns. At this point hematoma is improving and therefore very unlikely to be involved in patient's ongoing anemia. Concern for infection decreased as patient has continued to be on antibiotics. Swelling to foot improved. Continue evaluation of anemia and other health conditions per medical team. Preliminary cultures negative. Unless culture turns positive necessitating possible debridement, recommend patient follow up with Ortho outpatient basis. Qualifiers: Qualified Code(s): S80.12XA - Contusion of left lower leg, initial encounter Subjective Principal diagnosis: left leg hematoma Interval history: Mr. Howe is a 81 year old male presenting to [facility] following repeatitive falls after change in his blood pressure per patient almost 1 month ago. During one such fall he admits to hitting his left leg. Patient has been on Effient for history of TIA and MO. He was found to be anemic and had EGD/Colonoscopy by Dr. Villa 2 days ago demonstrating no evidence of ulcers or bleeding. His left leg continues to demonstrate hematoma and now has concern for cellulitis per hospitalist. Dr. Kearns ordered MRI upon consult. No results yet available. Patient relates that last Friday, on 03/05/17 he got dizzy and fell hitting his shins on steps. He states that the left somers became swollen very quickly after injury and has persisted. He denies changing appearance or size of swollen area over the past week. He admits to ability to walk, stating his first few steps are painful, but after that he can walk just fine per patient. He admits to tenderness over the swollen area and his foot but denies any other complaints with relation to his bilateral lower legs. He admits to full sensation, denying any numbness or paresthesias. Patient is now on IV Doxycycline for cellulitis per medical team. On exam patient laying in bed neb treatment going. Left lower leg edema greatly improved, left foot to 1+ pitting edema. Hematoma reduced in size after aspiration. Hematoma continues to be tender to touch as expected. Dressing in place to aspiration site with no drainage. Neurovascularly intact. EXAMINATION: MRI OF THE LOWER LEFT EXTREMITY WITHOUT CONTRAST 03/12/2017 7:22 pm TECHNIQUE: Multiplanar multisequence MRI of the left lower extremity was performed without the administration of intravenous contrast. COMPARISON: None. HISTORY: ORDERING SYSTEM PROVIDED HISTORY: Large left leg hematoma s/p fall Concern for fracture. FINDINGS: Diffuse edema within the soft tissues. Edema also noted within the medial head of the gastrocnemius. No evidence of high-grade muscle tear. No intramuscular hematoma or fluid collection. Multiloculated 1.8 x 0.6 x 3.6 cm cystic lesion which appears to arise from the proximal tibiofibular joint and extends posteromedially. Findings likely represent a ganglion. Complex 5.2 x 2.4 x 7.5 cm fluid collection within the soft tissues of the anterolateral calf. No extension into the underlying fascia. MR/MR lower leg LT wo con IMPRESSION: No acute fracture. Diffuse soft tissue edema. 5.2 x 2.4 x 7.5 cm complex fluid collection within the soft tissues anterolateral calf likely representing hematoma given patient's history of fall. Low-grade strain of the medial head gastrocnemius. 1.8 x 0.6 x 3.6 cm probable ganglion cyst arising from the proximal tibiofibular joint. D/ / Gabriella Lam MD / Gabriella Lam MD Interpreting Provider: Gabriella Lam MD aspiration performed this morning. Cultures requested of the aspirate. Assessment: left lower leg hematoma Plan: Cleanse hematoma with each dressing change to aspiration site. Dressing change to left lower leg twice daily after cleansing with soap and water until well healed. Discussed dressing changes with nurse Carla. Discussed plan with Dr. Kearns. At this point hematoma is improving and therefore very unlikely to be involved in patient's ongoing anemia. Concern for infection decreased as patient has continued to be on antibiotics. Swelling to foot improved. Continue evaluation of anemia and other health conditions per medical team. Preliminary cultures negative. Unless culture turns positive necessitating possible debridement, recommend patient follow up with Ortho outpatient basis. Objective Vital signs: Vital Signs Temp Pulse Resp BP Pulse Ox 03/14/17 16:20 98.7 F 56 18 161/78 98 03/14/17 16:05 97.7 F 56 18 159/62 98 03/14/17 12:15 98.4 F 64 18 164/73 92 03/14/17 11:51 97.7 F 69 18 173/76 97 03/14/17 11:17 18 92 03/14/17 10:40 98.3 F 76 18 181/78 96 03/14/17 06:46 98.1 F 61 17 172/76 98 03/14/17 04:09 16 93 03/14/17 03:00 98 F 69 16 172/65 94 03/13/17 23:47 16 92 03/13/17 22:56 98.4 F 67 15 132/50 92 03/13/17 18:47 98.2 F 70 14 142/59 94 Intake and Output 03/14/17 03/14/17 03/14/17 07:59 15:59 23:59 Intake Total 500 / 500 590 / 590 0 / 0 Balance 500 / 500 590 / 590 0 / 0 Intake: Oral 500 / 500 240 / 240 Blood Product 350 / 350 0 / 0 Rbcs Leuko Poor As-1 Unit 350 / 350 [id number] Rbcs Leuko Poor As-3 Ph Unit 0 / 0 [id number] Other: Meal Breakfast Percent of Meal Consumed 100% # Voids 1 Weight 73.936 kg Patient Weight 03/14/17 23:59 Weight 73.936 kg - Labs CBC & BMP: 03/14/17 04:40 03/13/17 04:34 Labs: Abnormal lab results RBC 2.37 M/mcL (4.19-5.50) L 03/14/17 04:40 Hgb 6.9 g/dL (12.9-16.9) L 03/14/17 04:40 Hct 22.4 % (37.5-50.1) L 03/14/17 04:40 MCHC 30.8 g/dL (31.6-35.5) L 03/14/17 04:40 MPV 9.0 fL (9.4-12.4) L 03/14/17 04:40 Lymphocytes # 0.2 K/mcL (0.6-4.6) L 03/14/17 04:40 Nucleated RBCs/100 WBC 0.2 /100 WBC (0) H 03/14/17 04:40 Sodium 135 mEq/L (136-145) L 03/13/17 04:34 BUN 24 mg/dL (8-23) H 03/13/17 04:34 Creatinine 1.32 mg/dL (0.70-1.30) H 03/13/17 04:34 Est GFR (Non-Af Amer) 52 (> 60) L 03/13/17 04:34 Glucose 165 mg/dL (70-105) H 03/13/17 04:34 Iron < 10 mcg/dL (65-175) L 03/11/17 04:03 Transferrin 185 mg/dL (203-362) L 03/11/17 04:03 Stool Occult Blood Positive (Negative) A 03/08/17 21:41 Consult Discharge Plan - Plan Referrals: Irving Latif Jr, MD [Primary Care Provider] - 03/17/17 12:00 pm Xochitl Rangel PAC [Physician Convict Guard] - 03/21/17 9:45 am
[2017-03-15] MEDS: Ipratropium/Albuterol Neb 3 ML IH SCH ×6 (03:41→23:32)
[2017-03-15 05:48] LABS: Hematocrit 28.2 % (37.5-50.1); Lymphocytes # 0.6 K/mcL (0.6-4.6); Mean Corpuscular HGB Conc 31.6 g/dL (31.6-35.5); Mean Corpuscular Hemoglobin 29.1 pg (28.0-33.3); Mean Corpuscular Volume 92.2 fL (83.0-100.0); Mean Platelet Volume 9.4 fL (9.4-12.4); Nucleated Red Blood Cells 0.2 /100 WBC (0); Platelet Count 293 K/mcL (140-400); Red Blood Count 3.06 M/mcL (4.19-5.50); Red Cell Distribution Width 15.2 % (11.5-14.5)
[2017-03-15 06:06] LABS: Hemoglobin 8.9 g/dL (12.9-16.9)
[2017-03-15] MEDS: Doxycycline 100 MG in 0.9 % Sodium Chloride Mini Bag 100 ML IVPB SCH (06:49)
[2017-03-15 06:58] LABS: Monocytes # 1.4 K/mcL (0.0-1.3); Neutrophils # 8.2 K/mcL (1.6-8.9); Platelet Estimate Normal (Normal)
[2017-03-15] MEDS: Ranolazine 500 MG TAB.ER.12H PO SCH ×2 (09:11→20:31)
[2017-03-15] MEDS: Finasteride 5 MG TABLET PO SCH (09:11)
[2017-03-15] MEDS: predniSONE 20 MG TABLET PO SCH (09:12)
--- NOTE | 2017-03-15 14:17 | Internal Med Progress Note ---
Date of Encounter: 03/15/17 Time of Encounter: 14:14 - Assessment and plan (1) Traumatic hematoma of left lower leg Current Visit: Yes Status: Acute Assessment and plan: No acute fracture or dislocation identified on left tibia, fibula or ankle MRI of leg showed diffuse edema and hematoma Ortho on board Had aspiration of hematoma by IR.. removed 20CC fluid fluid cx - did not grow anything Cont holding Effient due to hematoma Cellulites improved too... switched to Po Doxy Qualifiers: Encounter type: initial encounter Qualified Code(s): S80.12XA - Contusion of left lower leg, initial encounter (2) Anemia due to blood loss Current Visit: Yes Status: Acute Assessment and plan: Multi factorial - could be due to Hematoma with fall + GI occult bleed Hb dropped down to 6.9 Improved now to 8.9 after 2 U PRBC + 3 bags Iron Venofer s/p EGD and Colonoscopy no signs of active bleeding cont close monitoring May need out pt endo capsular studies He does have severe Iron def anemia too Gave him IV Iron x 3 days (3) GI bleed Current Visit: Yes Status: Acute Assessment and plan: Hemoccult positive..Pt is also on Iron supplements however EGD by Dr. Villa demonstrates no acute bleed, colonoscopy did not show any source of bleeding cont holding effieint for now Pt does not want to take omeprazole Qualifiers: GI bleed type/associated pathology: melena Qualified Code(s): K92.1 - Melena (4) Essential hypertension Current Visit: No Status: Acute Assessment and plan: fairly controlled will resume home med Cozaar started on IV hydralazine PRN (5) CAD (coronary artery disease) Current Visit: Yes Status: Acute Assessment and plan: Effient on hold for now If Hb stays stable by tomorrow iwll resume effient also will check with cardiology whether need to be on Effient only or can we switch to ASA 81mg Qualifiers: Coronary Disease-Associated Artery/Lesion type: [place] artery [place] vs. transplanted heart: [place] heart Associated angina: without angina Qualified Code(s): I25.10 - Atherosclerotic heart disease of [place] coronary artery without angina pectoris (6) Acute respiratory failure with hypoxia Current Visit: Yes Status: Acute Assessment and plan: He does have hypoxia and required 2 lit O2 continuously mostly due to reactive airway disease no signs of INc / Pneumonia cont PO steroids + Duoneb (7) Reactive airway disease Current Visit: Yes Status: Acute Qualifiers: Qualified Code(s): J45.20 - Mild intermittent asthma, uncomplicated (8) Frequent falls Current Visit: Yes Status: Acute Assessment and plan: PT / OT capri done recommend ECF / Swing bed for short term rehab.. Will consult SW / CM (9) Physical deconditioning Current Visit: Yes Status: Acute - Subjective Interval history: Mr. Howe is a 81 year old male with past medical history significant for hypertension, CHF, CAD and TIA who presented to the hospital for evaluation of left lower extremity pain after he suffered a fall. He fell 4 days ago down some stairs and injured his left leg and left buttock. He felt lightheaded prior to falling but denies chest pain. He reports a aching, moderate to severe pain in the left lower leg, worse with bearing weight, improved with ibuprofen and morphine which he received in the emergency department. He also reports long-standing history of black stool which he relates to taking iron pill. Denies abdominal pain, nausea vomiting diarrhea, hematemesis, dysuria. He had a colonoscopy which she believes was 3 years ago and was unremarkable. Workup done in the emergency department was pertinent for hemoglobin of 8.5 and positive fecal occult blood testing. Lower leg x-rays revealed no evidence of a fracture. Pt was admitted in the hospital and started him on empirical abx Ancef and symptomatic care. Today he is alert, awake and O x 3. Denied any CP / SOB. Had aspiration of hematoma by IR on 03/13/17. Removed 20 CC fluid. Pt states he is feeling little better today. Pain also tolerable with current regimen. No events over night - Constitutional Vitals: Temp Pulse Resp BP Pulse Ox 97.6 F 73 18 146/67 96 03/15/17 12:10 03/15/17 12:10 03/15/17 12:10 03/15/17 12:10 03/15/17 12:10 General appearance: Present: A&O X 3, no acute distress - Head Head exam: Present: atraumatic, normal inspection - Neck Neck exam general surgery: Present: supple - Respiratory Respiratory exam: Present: decreased breath sounds, wheezes (mild). Absent: rales, respiratory distress, rhonchi - Cardiovascular Cardiovascular exam: Present: RRR, +S1, +S2. Absent: tachycardia - GI/Abdominal GI/Abdominal exam: Present: normal bowel sounds, soft. Absent: rebound, rigid, tenderness - Extremities Exam Extremities exam: Present: tenderness (Improving tenderness over Left leg). Absent: calf tenderness Additional comments: Improved edema and erythema over left leg - Back Exam Back exam: Absent: CVA tenderness (L), CVA tenderness (R) - Neurological Exam Neurological exam: Present: alert, oriented X3 - Psychiatric Psychiatric exam: Present: normal affect, normal mood Internal Medicine: Result - Labs CBC & Chem 7: 03/15/17 04:39 03/13/17 04:34 Labs: Short CBC 03/15/17 Range/Units 04:39 WBC 10.3 (4.3-11.1) K/mcL Hgb 8.9 L D (12.9-16.9) g/dL Hct 28.2 L (37.5-50.1) % Plt Count 293 (140-400) K/mcL Neutrophils # 8.2 (1.6-8.9) K/mcL - ABG Interpretation ABG results: PT/INR, D-dimer PT 11.9 Seconds (9.4-12.1) 03/08/17 18:58 Consult Discharge Plan - Plan Referrals: Xochitl Rangel PAC [Physician Interlibrary Loan Specialist] - 03/21/17 9:45 am Irving Latif Jr, MD [Primary Care Provider] - 03/17/17 12:00 pm
[2017-03-15] MEDS: Acetaminophen 325 MG TABLET PO PRN (20:31)
[2017-03-15] MEDS: Doxycycline 100 MG CAPSULE PO SCH (20:31)
[2017-03-16] MEDS: Ipratropium/Albuterol Neb 3 ML IH SCH ×6 (03:53→23:57)
[2017-03-16 05:03] LABS: Basophils % 0.3 %; Hematocrit 27.5 % (37.5-50.1); Hemoglobin 8.6 g/dL (12.9-16.9); Lymphocytes # 0.4 K/mcL (0.6-4.6); Lymphocytes % 4.3 %; Mean Corpuscular HGB Conc 31.3 g/dL (31.6-35.5); Mean Corpuscular Hemoglobin 28.9 pg (28.0-33.3); Mean Corpuscular Volume 92.3 fL (83.0-100.0); Mean Platelet Volume 9.3 fL (9.4-12.4); Monocytes # 0.9 K/mcL (0.0-1.3); Monocytes % 9.7 %; Neutrophils # 7.4 K/mcL (1.6-8.9); Nucleated Red Blood Cells 0.3 /100 WBC (0); Platelet Count 292 K/mcL (140-400); Red Blood Count 2.98 M/mcL (4.19-5.50); Red Cell Distribution Width 15.1 % (11.5-14.5); Segmented Neutrophils % 78.7 %
[2017-03-16 05:36] LABS: BUN/Creatinine Ratio 18 (6-26); Blood Urea Nitrogen 23 mg/dL (8-23); Calcium 8.6 mg/dL (8.6-10.3); Carbon Dioxide 25 mEq/L (23-29); Chloride 108 mEq/L (98-107); Glucose 143 mg/dL (70-105); Osmolality,Calculated 290 (280-300); Sodium 137 mEq/L (136-145); eGFR For African Americans > 60 (> 60); eGFR For Non-African Americans 54 (> 60)
[2017-03-16 05:53] LABS: Platelet Estimate Normal (Normal)
[2017-03-16] MEDS: Finasteride 5 MG TABLET PO SCH (09:30)
[2017-03-16] MEDS: predniSONE 20 MG TABLET PO SCH (09:30)
[2017-03-16] MEDS: Doxycycline 100 MG CAPSULE PO SCH ×2 (09:30→21:56)
[2017-03-16] MEDS: Ranolazine 500 MG TAB.ER.12H PO SCH ×2 (09:30→21:56)
--- NOTE | 2017-03-16 12:18 | Internal Med Progress Note ---
Date of Encounter: 03/16/17 Time of Encounter: 12:15 - Assessment and plan (1) Traumatic hematoma of left lower leg Current Visit: Yes Status: Acute Assessment and plan: No acute fracture or dislocation identified on left tibia, fibula or ankle MRI of leg showed diffuse edema and hematoma Appreciate ortho recommendations Had aspiration of hematoma by IR.. removed 20CC fluid fluid cx - did not grow anything Cont holding Effient due to hematoma Cellulites improved too... switched to Po Doxy # 7/ Switched him to full admission since he required to stay in the hospital more than 5 days Qualifiers: Encounter type: initial encounter Qualified Code(s): S80.12XA - Contusion of left lower leg, initial encounter (2) Anemia due to blood loss Current Visit: Yes Status: Acute Assessment and plan: Multi factorial - could be due to Hematoma with fall + GI occult bleed Hb dropped down to 6.9 initially Hb improved and stable @ 8.6 after 2 U PRBC + 3 bags Iron Venofer s/p EGD and Colonoscopy no signs of active bleeding cont close monitoring May need out pt endo capsular studies He does have severe Iron def anemia too Gave him IV Iron x 3 days (3) GI bleed Current Visit: Yes Status: Acute Assessment and plan: Hemoccult positive..Pt is also on Iron supplements however EGD by Dr. Villa demonstrates no acute bleed, colonoscopy did not show any source of bleeding cont holding effieint for now Pt does not want to take omeprazole Qualifiers: GI bleed type/associated pathology: melena Qualified Code(s): K92.1 - Melena (4) Essential hypertension Current Visit: No Status: Acute Assessment and plan: fairly controlled cont Cozaar + Will start him on Norvasc started on IV hydralazine PRN (5) CAD (coronary artery disease) Current Visit: Yes Status: Acute Assessment and plan: Effient on hold for now If Hb stays stable by tomorrow will resume effient also will check with cardiology whether need to be on Effient only or can we switch to ASA 81mg Qualifiers: Coronary Disease-Associated Artery/Lesion type: [place] artery [place] vs. transplanted heart: [place] heart Associated angina: without angina Qualified Code(s): I25.10 - Atherosclerotic heart disease of [place] coronary artery without angina pectoris (6) Acute respiratory failure with hypoxia Current Visit: Yes Status: Acute Assessment and plan: He does have hypoxia and required 2 lit O2 continuously mostly due to reactive airway disease no signs of INc / Pneumonia cont PO steroids + Duoneb Took him off the O2.. now his SPo2 96 % on RA will do over night pulse oxy may need home O2 eval in AM (7) Reactive airway disease Current Visit: Yes Status: Acute Qualifiers: Qualified Code(s): J45.20 - Mild intermittent asthma, uncomplicated (8) Frequent falls Current Visit: Yes Status: Acute Assessment and plan: PT / OT eval done recommend ECF / Swing bed for short term rehab.. Will consult SW / MARTINA (9) Physical deconditioning Current Visit: Yes Status: Acute - Subjective Interval history: Mr. Howe is a 81 year old male with past medical history significant for hypertension, CHF, CAD and TIA who presented to the hospital for evaluation of left lower extremity pain after he suffered a fall. He fell 4 days ago down some stairs and injured his left leg and left buttock. He felt lightheaded prior to falling but denies chest pain. He reports a aching, moderate to severe pain in the left lower leg, worse with bearing weight, improved with ibuprofen and morphine which he received in the emergency department. He also reports long-standing history of black stool which he relates to taking iron pill. Denies abdominal pain, nausea vomiting diarrhea, hematemesis, dysuria. He had a colonoscopy which she believes was 3 years ago and was unremarkable. Workup done in the emergency department was pertinent for hemoglobin of 8.5 and positive fecal occult blood testing. Lower leg x-rays revealed no evidence of a fracture. Pt was admitted in the hospital and started him on empirical abx Ancef and symptomatic care. Today he is alert, awake and O x 3. Denied any CP / SOB. Had aspiration of hematoma by IR on 03/13/17. Removed 20 CC fluid. Pt states he is feeling little better today. Pain also tolerable with current regimen. No events over night - Constitutional Vitals: Temp Pulse Resp BP Pulse Ox 98.8 F 64 16 179/64 98 03/16/17 11:32 03/16/17 11:32 03/16/17 11:35 03/16/17 11:32 03/16/17 11:35 General appearance: Present: A&O X 3, no acute distress, answers questions appropriately - Head Head exam: Present: atraumatic, normal inspection - Neck Neck exam general surgery: Present: supple - Respiratory Respiratory exam: Present: decreased breath sounds, wheezes (mild). Absent: rales, respiratory distress, rhonchi - Cardiovascular Cardiovascular exam: Present: RRR, +S1, +S2. Absent: tachycardia - GI/Abdominal GI/Abdominal exam: Present: normal bowel sounds, soft. Absent: rebound, rigid, tenderness - Extremities Exam Extremities exam: Present: pedal edema (Left leg), tenderness (Improving in left leg). Absent: calf tenderness Additional comments: Improved erythema in left leg still has mild swelling in left leg..over all improved - Back Exam Back exam: Absent: CVA tenderness (L), CVA tenderness (R) - Neurological Exam Neurological exam: Present: alert, oriented X3 - Psychiatric Psychiatric exam: Present: normal affect, normal mood Internal Medicine: Result - Labs CBC & Chem 7: 03/16/17 03:27 03/16/17 03:27 Labs: Short CBC 03/16/17 Range/Units 03:27 WBC 9.4 (4.3-11.1) K/mcL Hgb 8.6 L (12.9-16.9) g/dL Hct 27.5 L (37.5-50.1) % Plt Count 292 (140-400) K/mcL Neutrophils # 7.4 (1.6-8.9) K/mcL BMP 03/16/17 03:27 Sodium 137 Potassium 4.0 Chloride 108 H Carbon Dioxide 25 BUN 23 Creatinine 1.28 Glucose 143 H Calcium 8.6 - ABG Interpretation ABG results: PT/INR, D-dimer PT 11.9 Seconds (9.4-12.1) 03/08/17 18:58 Consult Discharge Plan - Plan Referrals: Xochitl Rangel PAC [Physician Financial Aids Officer] - 03/21/17 9:45 am Irving Latif Jr, MD [Primary Care Provider] - 03/17/17 12:00 pm
[2017-03-16] MEDS: amLODIPine 5 MG TABLET PO SCH (13:15)
[2017-03-16] MEDS: Acetaminophen 325 MG TABLET PO PRN (21:55)
[2017-03-17] MEDS: Ipratropium/Albuterol Neb 3 ML IH SCH ×5 (04:32→20:30)
[2017-03-17 05:17] LABS: Hematocrit 30.1 % (37.5-50.1); Hemoglobin 9.3 g/dL (12.9-16.9); Mean Corpuscular HGB Conc 30.9 g/dL (31.6-35.5); Mean Corpuscular Hemoglobin 28.8 pg (28.0-33.3); Mean Corpuscular Volume 93.2 fL (83.0-100.0); Mean Platelet Volume 9.3 fL (9.4-12.4); Platelet Count 307 K/mcL (140-400); Red Blood Count 3.23 M/mcL (4.19-5.50); Red Cell Distribution Width 15.3 % (11.5-14.5)
[2017-03-17 07:53] LABS: Anisocytosis 1+ (Not Present); Burr Cells 1+ (Not Present); Lymphocytes # 1.1 K/mcL (0.6-4.6); Monocytes # 0.6 K/mcL (0.0-1.3); Neutrophils # 7.8 K/mcL (1.6-8.9); Platelet Estimate Normal (Normal)
[2017-03-17] MEDS: Doxycycline 100 MG CAPSULE PO SCH ×2 (09:46→19:40)
[2017-03-17] MEDS: amLODIPine 5 MG TABLET PO SCH (09:46)
[2017-03-17] MEDS: predniSONE 20 MG TABLET PO SCH (09:47)
[2017-03-17] MEDS: Ranolazine 500 MG TAB.ER.12H PO SCH ×2 (09:47→19:40)
[2017-03-17] MEDS: Finasteride 5 MG TABLET PO SCH (09:47)
--- NOTE | 2017-03-17 15:36 | Internal Med Progress Note ---
Date of Encounter: 03/17/17 Time of Encounter: 13:00 - Assessment and plan (1) Traumatic hematoma of left lower leg Current Visit: Yes Status: Acute Assessment and plan: No acute fracture or dislocation identified on left tibia, fibula or ankle MRI of leg showed diffuse edema and hematoma Appreciate ortho recommendations Had aspiration of hematoma by IR.. removed 20CC fluid fluid cx - did not grow anything Cont holding Effient due to hematoma Cellulites improved too... switched to Po Doxy # 8/10 Qualifiers: Encounter type: initial encounter Qualified Code(s): S80.12XA - Contusion of left lower leg, initial encounter (2) Anemia due to blood loss Current Visit: Yes Status: Acute Assessment and plan: Multi factorial - could be due to Hematoma with fall + GI occult bleed Hb dropped down to 6.9 initially Hb improved and stable @ 9.3 after 2 U PRBC + 3 bags Iron Venofer s/p EGD and Colonoscopy no signs of active bleeding cont close monitoring May need out pt endo capsular studies He does have severe Iron def anemia too Gave him IV Iron x 3 days (3) GI bleed Current Visit: Yes Status: Acute Assessment and plan: Hemoccult positive..Pt is also on Iron supplements however EGD by Dr. Villa demonstrates no acute bleed, colonoscopy did not show any source of bleeding cont holding effieint for now Pt does not want to take omeprazole Qualifiers: GI bleed type/associated pathology: melena Qualified Code(s): K92.1 - Melena (4) Essential hypertension Current Visit: No Status: Acute Assessment and plan: fairly controlled cont Cozaar + Norvasc 10mg added Imdur 60mg PO daily today Unable to give Metoprolol since his HR already in low 60's Cont IV hydralazine PRN (5) CAD (coronary artery disease) Current Visit: Yes Status: Acute Assessment and plan: Effient on hold for now If Hb stays stable by tomorrow will resume effient also will check with cardiology whether need to be on Effient only or can we switch to ASA 81mg Qualifiers: Coronary Disease-Associated Artery/Lesion type: [place] artery [place] vs. transplanted heart: [place] heart Associated angina: without angina Qualified Code(s): I25.10 - Atherosclerotic heart disease of [place] coronary artery without angina pectoris (6) Acute respiratory failure with hypoxia Current Visit: Yes Status: Acute Assessment and plan: He does have hypoxia and required 2 lit O2 continuously mostly due to reactive airway disease no signs of INc / Pneumonia cont PO steroids + Duoneb Took him off the O2.. now his SPo2 96 % on RA will do over night pulse oxy may need home O2 eval in AM (7) Reactive airway disease Current Visit: Yes Status: Acute Qualifiers: Qualified Code(s): J45.20 - Mild intermittent asthma, uncomplicated (8) Frequent falls Current Visit: Yes Status: Acute Assessment and plan: PT / OT eval done recommend ECF / Swing bed for short term rehab SW/ CM working on it (9) Physical deconditioning Current Visit: Yes Status: Acute - Subjective Interval history: Mr. Howe is a 81 year old male with past medical history significant for hypertension, CHF, CAD and TIA who presented to the hospital for evaluation of left lower extremity pain after he suffered a fall. He fell 4 days ago down some stairs and injured his left leg and left buttock. He felt lightheaded prior to falling but denies chest pain. He reports a aching, moderate to severe pain in the left lower leg, worse with bearing weight, improved with ibuprofen and morphine which he received in the emergency department. He also reports long-standing history of black stool which he relates to taking iron pill. Denies abdominal pain, nausea vomiting diarrhea, hematemesis, dysuria. He had a colonoscopy which she believes was 3 years ago and was unremarkable. Workup done in the emergency department was pertinent for hemoglobin of 8.5 and positive fecal occult blood testing. Lower leg x-rays revealed no evidence of a fracture. Pt was admitted in the hospital and started him on empirical abx Ancef and symptomatic care. Had aspiration of hematoma by IR on 03/13/17. Removed 20 CC fluid. Pt states he is feeling lot better today. Pain also tolerable with current regimen. No events over night. Today he is alert, awake and O x 3. Denied any CP / SOB. - Constitutional Vitals: Temp Pulse Resp BP Pulse Ox 97.5 F L 81 18 149/65 97 03/17/17 15:29 03/17/17 15:29 03/17/17 15:29 03/17/17 15:29 03/17/17 15:29 General appearance: Present: A&O X 3, no acute distress, answers questions appropriately - Head Head exam: Present: atraumatic, normal inspection - Neck Neck exam general surgery: Present: supple - Respiratory Respiratory exam: Present: decreased breath sounds. Absent: rales, respiratory distress, rhonchi, wheezes - Cardiovascular Cardiovascular exam: Present: RRR, +S1, +S2. Absent: tachycardia - GI/Abdominal GI/Abdominal exam: Present: normal bowel sounds, soft. Absent: rebound, rigid, tenderness - Extremities Exam Extremities exam: Present: pedal edema (Improving), tenderness (mild tenderness in left leg). Absent: calf tenderness Additional comments: Improved erythema iver Left leg.. Improved swelling in Left leg - Back Exam Back exam: Absent: CVA tenderness (L), CVA tenderness (R) - Psychiatric Psychiatric exam: Present: normal affect, normal mood - Skin Skin exam: Absent: rash Internal Medicine: Result - Labs CBC & Chem 7: 03/17/17 04:39 03/16/17 03:27 Labs: Short CBC 03/17/17 Range/Units 04:39 WBC 9.5 (4.3-11.1) K/mcL Hgb 9.3 L (12.9-16.9) g/dL Hct 30.1 L (37.5-50.1) % Plt Count 307 (140-400) K/mcL Neutrophils # 7.8 (1.6-8.9) K/mcL - ABG Interpretation ABG results: PT/INR, D-dimer PT 11.9 Seconds (9.4-12.1) 03/08/17 18:58 Consult Discharge Plan - Plan Referrals: Xochitl Rangel PAC [Physician Consumer Affairs Specialist] - 03/21/17 9:45 am Irving Latif Jr, MD [Primary Care Provider] - 03/17/17 12:00 pm
[2017-03-17] MEDS: Isosorbide MONOnitrate (24 HR) 60 MG TAB.ER.24H PO SCH (15:52)
[2017-03-18] MEDS: Ipratropium/Albuterol Neb 3 ML IH SCH ×6 (00:38→20:52)
[2017-03-18 04:44] LABS: Basophils % 0.2 %; Eosinophils % 0.1 %; Hemoglobin 8.6 g/dL (12.9-16.9); Immature Granulocytes % 4.2 % (0-4); Lymphocytes # 0.3 K/mcL (0.6-4.6); Lymphocytes % 2.9 %; Mean Corpuscular HGB Conc 31.9 g/dL (31.6-35.5); Mean Corpuscular Hemoglobin 29.8 pg (28.0-33.3); Mean Corpuscular Volume 93.4 fL (83.0-100.0); Mean Platelet Volume 9.3 fL (9.4-12.4); Monocytes # 0.7 K/mcL (0.0-1.3); Monocytes % 6.7 %; Neutrophils # 8.3 K/mcL (1.6-8.9); Platelet Count 252 K/mcL (140-400); Red Blood Count 2.89 M/mcL (4.19-5.50); Red Cell Distribution Width 15.8 % (11.5-14.5); Segmented Neutrophils % 85.9 %
[2017-03-18] MEDS: Doxycycline 100 MG CAPSULE PO SCH ×2 (09:23→21:25)
[2017-03-18] MEDS: Ranolazine 500 MG TAB.ER.12H PO SCH ×2 (09:24→21:26)
[2017-03-18] MEDS: Isosorbide MONOnitrate (24 HR) 60 MG TAB.ER.24H PO SCH (09:24)
[2017-03-18] MEDS: Finasteride 5 MG TABLET PO SCH (09:24)
[2017-03-18] MEDS: amLODIPine 5 MG TABLET PO SCH (09:25)
[2017-03-18] MEDS: predniSONE 20 MG TABLET PO SCH (09:25)
[2017-03-18] MEDS ORDERED: Ferumoxytol 510 MG in 0.9 % Sodium Chloride 100 ML IVPB ONE (09:47)
--- NOTE | 2017-03-18 18:24 | Internal Med Progress Note ---
Date of Encounter: 03/18/17 Time of Encounter: 12:00 - Assessment and plan (1) Traumatic hematoma of left lower leg Current Visit: Yes Status: Acute Assessment and plan: No acute fracture or dislocation identified on left tibia, fibula or ankle MRI of leg showed diffuse edema and hematoma Appreciate ortho recommendations, including changing dressing frequently after aspiration. Cleanse with soap and water until well-healed. Hematoma is healing well, and very unlikely to be involved as a cause for anemia. Continue antibiotics and dressing changes. Follow-up with ortho in the clinic after discharge. Had aspiration of hematoma by IR.. removed 20CC fluid, culture negative. Cont holding Effient due to hematoma Completed by mouth Doxy for cellulitis. Qualifiers: Encounter type: initial encounter Qualified Code(s): S80.12XA - Contusion of left lower leg, initial encounter (2) Acute respiratory failure with hypoxia Current Visit: Yes Status: Acute Assessment and plan: Patient wears 2 L of home O2 continuously. History of reactive airway disease. Continue PO steroids + Duonebs Patient is currently wearing 2 L of oxygen here to maintain sats, titrate as needed to maintain sats greater than 92%. (3) Anemia due to blood loss Current Visit: Yes Status: Acute Assessment and plan: Unsure that anemia is due to blood loss, patient with prior history of iron deficiency anemia. Most likely due to poor dietary intake. Iron was less than 10, percent saturation was not even performed. Patient has received IV iron infusion as well as 2 units of packed red blood cells. We will continue to monitor. Hemoglobin was 8.6 today. We will transfuse if hemoglobin is less than 8. I spoke with oncology nurse practitioner, patient will need to follow up with hematology outpatient for iron infusions after discharge. (4) CAD (coronary artery disease) Current Visit: Yes Status: Acute Assessment and plan: Patient denies any chest pain. Continue home medications. Continue aspirin, Imdur, Cozaar, Ranexa. Continue telemetry. Qualifiers: Coronary Disease-Associated Artery/Lesion type: [place] artery [place] vs. transplanted heart: [place] heart Associated angina: without angina Qualified Code(s): I25.10 - Atherosclerotic heart disease of [place] coronary artery without angina pectoris (5) Frequent falls Current Visit: Yes Status: Acute Assessment and plan: PT / OT eval done, recommend rehabilitation line up worker is working on follow-up with the ECF for possible admission. Patient is close to nurses station Continue fall precautions and bed alarm. (6) GI bleed Current Visit: Yes Status: Acute Assessment and plan: Hemoccult positive..Pt is also on Iron supplements EGD was completed by Dr. Villa, no acute GI bleed noted. Hold Effient at this time for anemia. Pt does not want to take omeprazole Qualifiers: GI bleed type/associated pathology: melena Qualified Code(s): K92.1 - Melena (7) Reactive airway disease Current Visit: Yes Status: Acute Assessment and plan: Plan as above. Qualifiers: Asthma severity: unspecified severity Asthma complication type: uncomplicated Qualified Code(s): J45.909 - Unspecified asthma, uncomplicated (8) Essential hypertension Current Visit: No Status: Acute Assessment and plan: Blood pressure is well controlled. Continue to monitor per admission orders and continue home medications. (9) DVT prophylaxis Current Visit: Yes Status: Acute Assessment and plan: Foot pumps ordered. - Time Spent With Patient less than 15 minutes - Subjective Interval history: Patient was seen and assessed at 12 PM. He is alert and awake in his bed, multiple questions asked and answered. Patient appears to have anxiety regarding his condition and hospitalization. He denies headache or blurred vision, no dizziness, nausea, vomiting. No chest pain or shortness of breath. No abdominal pain. Still reports pain to lower extremity from fall and hematoma. - Constitutional Vitals: Temp Pulse Resp BP Pulse Ox 97.9 F 73 20 115/60 97 03/18/17 15:16 03/18/17 15:16 03/18/17 15:20 03/18/17 15:16 03/18/17 15:20 General appearance: Present: cooperative, A&O X 3, pleasant, no acute distress, answers questions appropriately - Head Head exam: Present: atraumatic, normal inspection, normocephalic - Eye Eye exam: Present: normal appearance, conjuntiva pink, sclera anicteric - Neck Neck exam general surgery: Present: supple, trachea midline. Absent: lymphadenopathy, tenderness - Respiratory Respiratory exam: Present: CTAB. Absent: accessory muscle use, rales, respiratory distress, rhonchi, wheezes - Cardiovascular Cardiovascular exam: Present: RRR, +S1, +S2. Absent: diastolic murmur, gallop, rubs, systolic murmur - GI/Abdominal GI/Abdominal exam: Present: hepatomegaly, normal bowel sounds, soft, no peritoneal signs. Absent: distended, tenderness - Extremities Exam Extremities exam: Present: tenderness, warm, radial pulses palpable and symmetrical. Absent: calf tenderness, cyanotic, pedal edema - Neurological Exam Neurological exam: Present: alert, oriented X3, no focal deficits. Absent: altered, facial droop, speech deficit - Skin Skin exam: Present: dry, intact, normal color, warm. Absent: rash Internal Medicine: Result - Labs CBC & Chem 7: 03/18/17 04:09 03/16/17 03:27 Labs: Short CBC 03/18/17 Range/Units 04:09 WBC 9.7 (4.3-11.1) K/mcL Hgb 8.6 L (12.9-16.9) g/dL Hct 27.0 L (37.5-50.1) % Plt Count 252 (140-400) K/mcL Neutrophils # 8.3 (1.6-8.9) K/mcL - ABG Interpretation ABG results: PT/INR, D-dimer PT 11.9 Seconds (9.4-12.1) 03/08/17 18:58 Consult Discharge Plan - Plan Referrals: Xochitl Rangel PAC [Physician Vice President Corporate Communications] - 03/21/17 9:45 am Irving Latif Jr, MD [Primary Care Provider] - 03/17/17 12:00 pm
[2017-03-19] MEDS: Ipratropium/Albuterol Neb 3 ML IH SCH ×4 (00:48→11:41)
[2017-03-19] MEDS: Doxycycline 100 MG CAPSULE PO SCH (09:31)
[2017-03-19] MEDS: Isosorbide MONOnitrate (24 HR) 60 MG TAB.ER.24H PO SCH (09:31)
[2017-03-19] MEDS: predniSONE 20 MG TABLET PO SCH (09:32)
[2017-03-19] MEDS: Ranolazine 500 MG TAB.ER.12H PO SCH (09:32)
[2017-03-19] MEDS: Finasteride 5 MG TABLET PO SCH (09:32)
[2017-03-19] MEDS: amLODIPine 5 MG TABLET PO SCH (09:32)
[2017-03-19 10:50] LABS: Basophils % 0.1 %; Eosinophils # 0.1 K/mcL (0.0-0.6); Eosinophils % 0.9 %; Hematocrit 32.8 % (37.5-50.1); Immature Granulocytes % 2.2 % (0-4); Lymphocytes # 0.6 K/mcL (0.6-4.6); Lymphocytes % 6.3 %; Mean Corpuscular HGB Conc 31.1 g/dL (31.6-35.5); Mean Corpuscular Hemoglobin 29.2 pg (28.0-33.3); Mean Platelet Volume 9.3 fL (9.4-12.4); Monocytes # 0.6 K/mcL (0.0-1.3); Monocytes % 6.2 %; Neutrophils # 8.6 K/mcL (1.6-8.9); Platelet Count 310 K/mcL (140-400); Red Blood Count 3.49 M/mcL (4.19-5.50); Segmented Neutrophils % 84.3 %
[2017-03-19 11:00] LABS: Hemoglobin 10.2 g/dL (12.9-16.9)
[2017-03-19 11:09] VITALS: BP 122/56
--- NOTE | 2017-03-19 11:15 | Discharge Summary ---
Date of Encounter: 03/19/17 Time of Encounter: 09:40 - Discharge Diagnosis (1) Traumatic hematoma of left lower leg Priority: Primary Status: Acute Comments: No acute fracture or dislocation identified on left tibia, fibula or ankle MRI of leg showed diffuse edema and hematoma Appreciate ortho recommendations, including changing dressing frequently after aspiration. Cleanse with soap and water until well-healed. Hematoma is healing well, and very unlikely to be involved as a cause for anemia. Continue antibiotics and dressing changes. Follow-up with ortho in the clinic after discharge. Had aspiration of hematoma by IR.. removed 20CC fluid, culture negative. Cont holding Effient due to hematoma, restart when evaluated by PCP. Completed by mouth Doxy for cellulitis. Qualifiers: Encounter type: initial encounter Qualified Code(s): S80.12XA - Contusion of left lower leg, initial encounter (2) Acute respiratory failure with hypoxia Priority: Secondary Status: Acute Comments: Patient wears 2 L of home O2 continuously. History of reactive airway disease. Continue PO steroids + Duonebs, home 02 Titrate as needed to maintain sats greater than 92%. (3) Anemia due to blood loss Priority: Secondary Status: Acute Comments: Unlikely that anemia is due to blood loss, patient with prior history of iron deficiency anemia. Most likely due to poor dietary intake. Iron was less than 10, percent saturation was not even performed. Patient has received IV iron infusion as well as 2 units of packed red blood cells. We will continue to monitor. Hemoglobin was >10 today. Transfuse if hemoglobin is less than 8. I spoke with oncology nurse practitioner, patient will need to follow up with hematology outpatient for iron infusions after discharge. (4) CAD (coronary artery disease) Priority: Secondary Status: Chronic Comments: Patient denies any chest pain. Continue home medications. Continue aspirin, Imdur, Cozaar, Ranexa. Continue telemetry. Qualifiers: Coronary Disease-Associated Artery/Lesion type: [place] artery [place] vs. transplanted heart: [place] heart Associated angina: without angina Qualified Code(s): I25.10 - Atherosclerotic heart disease of [place] coronary artery without angina pectoris (5) Frequent falls Priority: Secondary Status: Acute Comments: PT / OT eval done, recommend rehabilitation Pt will be going to [facility] for rehab today. (6) GI bleed Priority: Secondary Status: Acute Comments: Hemoccult positive..Pt is also on Iron supplements EGD was completed by Dr. Villa, no acute GI bleed noted. Hold Effient at this time for anemia, will need to see PCP to restart. Pt does not want to take omeprazole Qualifiers: GI bleed type/associated pathology: melena Qualified Code(s): K92.1 - Melena (7) Reactive airway disease Priority: Secondary Status: Chronic Comments: Plan as above. Qualifiers: Asthma severity: unspecified severity Asthma complication type: uncomplicated Qualified Code(s): J45.909 - Unspecified asthma, uncomplicated (8) Essential hypertension Priority: Secondary Status: Acute Comments: Blood pressure is well controlled, continue home medications. (9) DVT prophylaxis Priority: Secondary Status: Acute Comments: Foot pumps were ordered. - Discharge Medications Prescriptions: Doxycycline 100 mg PO BID #6 capsule Home Medications: Docusate [Colace] 100 mg PO DAILY PRN 03/09/17 [History] Ferrous Sulfate [Iron] 325 mg PO BID 03/09/17 [History] Finasteride [Proscar] 5 mg PO DAILY 03/09/17 [History] Furosemide [Lasix] 20 mg PO DAILY PRN 03/09/17 [History] Losartan Potassium [Cozaar] 100 mg PO DAILY 03/09/17 [History] Multivit-Min/FA/Lycopen/Lutein [Centrum Silver Men Tablet] 1 tab PO DAILY [History] Ranolazine [Ranexa] 1,000 mg PO BID 03/09/17 [History] Simvastatin [Zocor] 20 mg PO DAILY 03/09/17 [History] Tamsulosin [Flomax] 0.4 mg PO DAILY 03/09/17 [History] Doxycycline 100 mg PO BID #6 capsule 03/19/17 [Rx] Ipratropium/Albuterol Neb [Duoneb] 3 ml IH [id number] inhsol 03/19/17 [Rx] amLODIPine [Norvasc] 10 mg PO DAILY tablet 03/19/17 [Rx] Allergies/Adverse Reactions: 3 Allergy/AdvReac Type Severity Reaction Status Date / Time bacitracin [From Polysporin] Allergy Hives Verified 03/08/17 17:11 Neomycin Allergy Hives Verified 03/08/17 17:11 [From Neosporin ([id number])] polymyxin B [From Polysporin] Allergy Hives Verified 03/08/17 17:11 Date of admission: 03/16/17 12:08 Primary care physician: Irving Latif Jr, MD Discharging clinician: Joy Robledo Anticipated date of discharge: 03/19/17 - Patient Status Disposition: Transfer SNF Condition: Good Functional capacity at discharge: uses cane/walker Overall status at discharge: patient is not back to baseline - Discharge Instructions Follow Up With: Xochitl Rangel PAC [Physician Imaging Assistant] - 03/21/17 9:45 am Irving Latif Jr, MD [Primary Care Provider] - 03/17/17 12:00 pm Additional Instructions: PCP at [facility] will need to evaluate for need to resume Effient after Hbg, Iron, and LLE hematoma are stable. - Diet and Activity Activity: as per physical therapy Diet: advance to your usual diet Hospital course: Mr. Howe is a 81 year old male with PMH of [place]IT[place],HTN,CAD, CHF, TIA, and RAD who presented to the ED from home with c/o anemia, falls at home, GI bleed, and traumatic hematoma. Pt had EGD that was negative for bleeding. He had no injuries per xray s/p fall. Pt was evaluated by ortho and had an ultrasound- guided aspiration of subcutaneous fluid to the left calf. Wound care dressings per orthopedics. Wound cultures were negative. Patient was found to be anemic and Effient was stopped, primary care physician will need to reevaluate need to resume the medication once hemoglobin and hematoma are stable. Labs revealed that the patient'shemoglobin was low, iron level was less than 10, he received an iron transfusion and hemoglobin has risen to Bleph-10. He will continue taking his 325 mg of ferrous sulfate twice daily. He is stable, his labs are stable, vital signs are stable. Patient is appropriate for discharge. - Time Spent with Patient Total time spent providing and/or coordinating discharge services: Less than 30 minutes - Constitutional Vitals: Temp Pulse Resp BP Pulse Ox 98.7 F 62 18 122/56 94 03/19/17 11:08 03/19/17 11:08 03/19/17 11:08 03/19/17 11:08 03/19/17 11:08 General appearance: Present: cooperative, A&O X 3, pleasant, no acute distress, answers questions appropriately - Head Head exam: Present: atraumatic, normal inspection, normocephalic - Eye Eye exam: Present: normal appearance, conjuntiva pink, sclera anicteric - Neck Neck exam general surgery: Present: tenderness, supple, trachea midline. Absent : lymphadenopathy - Respiratory Respiratory exam: Present: CTAB. Absent: accessory muscle use, chest wall tenderness, rales, rhonchi, stridor, wheezes - Cardiovascular Cardiovascular exam: Present: RRR, +S1, +S2. Absent: diastolic murmur, gallop, rubs, systolic murmur - GI/Abdominal GI/Abdominal exam: Present: normal bowel sounds, soft, no peritoneal signs. Absent: distended, hepatomegaly, tenderness - Extremities Exam Extremities exam: Present: normal capillary refill, warm, radial pulses palpable and symmetrical. Absent: calf tenderness, cyanotic, pedal edema, tenderness - Neurological Exam Neurological exam: Present: CN II-XII intact, oriented X3, no focal deficits. Absent: facial droop, speech deficit - Skin Skin exam: Present: dry, intact, normal color, warm. Absent: rash
--- NOTE | 2017-03-19 11:50 | Physician Discharge Referral ---
ExtendedCare Referral Info Provider in Charge after Transfer: PCP Institutional Level of Care: Intermediate - Diagnosis (1) Traumatic hematoma of left lower leg Priority: Primary Status: Acute (2) Acute respiratory failure with hypoxia Priority: Secondary Status: Acute (3) Anemia due to blood loss Priority: Secondary Status: Acute (4) CAD (coronary artery disease) Priority: Secondary Status: Chronic (5) Frequent falls Priority: Secondary Status: Acute (6) GI bleed Priority: Secondary Status: Acute (7) Reactive airway disease Priority: Secondary Status: Chronic (8) Essential hypertension Priority: Secondary Status: Acute (9) DVT prophylaxis Priority: Secondary Status: Acute - Transfer Medications Prescriptions: Doxycycline 100 mg PO BID #6 capsule Home Medications: Docusate [Colace] 100 mg PO DAILY PRN 03/09/17 [History] Ferrous Sulfate [Iron] 325 mg PO BID 03/09/17 [History] Finasteride [Proscar] 5 mg PO DAILY 03/09/17 [History] Furosemide [Lasix] 20 mg PO DAILY PRN 03/09/17 [History] Losartan Potassium [Cozaar] 100 mg PO DAILY 03/09/17 [History] Multivit-Min/FA/Lycopen/Lutein [Centrum Silver Men Tablet] 1 tab PO DAILY [History] Ranolazine [Ranexa] 1,000 mg PO BID 03/09/17 [History] Simvastatin [Zocor] 20 mg PO DAILY 03/09/17 [History] Tamsulosin [Flomax] 0.4 mg PO DAILY 03/09/17 [History] Doxycycline 100 mg PO BID #6 capsule 03/19/17 [Rx] Ipratropium/Albuterol Neb [Duoneb] 3 ml IH [id number] inhsol 03/19/17 [Rx] amLODIPine [Norvasc] 10 mg PO DAILY tablet 03/19/17 [Rx] Allergies/Adverse Reactions: 3 Allergy/AdvReac Type Severity Reaction Status Date / Time bacitracin [From Polysporin] Allergy Hives Verified 03/08/17 17:11 Neomycin Allergy Hives Verified 03/08/17 17:11 [From Neosporin ([id number])] polymyxin B [From Polysporin] Allergy Hives Verified 03/08/17 17:11 - Respiratory Orders Smoking Cessation: Smoking cessation has been advised. For more information, call the [place] Tobacco Quit Line at 0-517-EZRM-NOW. - Lab Orders Lab Orders: CBC, U/A, Hao 17, CXR yearly - Ancillary Orders May use pressure relief devices daily prn, May go on RANDAL w/family/respon democrat w /meds at nurse discretion PRN, May consult with Dentist, Fiscal Specialist, Golf Course Laborer PRN - Advance Directives Code Status: Full Code - Mobility Orders Chair, Ambulate - Rehabiliation Orders Rehab Potential: Good Rehab Orders: ROM Exercises, Evaluation for Physical Therapy, Evaluation for Occupational Therapy - Treatments Skin tear care topically daily PRN per policy, May check for fecal impaction rectally daily PRN, Fleet enema rectally every other day PRN cleansing purposes (Pt will need frequent CBC to monitor H&H and will need to follow up with hematology/oncology for iron infusions after discharge.) - Diet Orders Regular CERTIFICATION: I certify that the transfer of the above named patient to an Extended Care Facility is necessary for the continuing treatment of the diagnosis listed. The above information is true and accurate reflection of patient's current condition. Confidential - Redisclosure prohibited without a patient's written consent.
== END 2017-03-19 16:17 | DRG 604 ==
LOC: EMEROO 16:51 → 3BNU 16:51 → SUATTDRO 23:31 → 3BNU 23:51
PROVIDERS: ADMIT Internal Medicine; ATTEND Internal Medicine
PROC: ENDOEBX (2017-03-10 08:00)
PROC: IRFLUID (2017-03-13 12:00)

== ENCOUNTER 2017-04-22 05:58 | Inpatient (IN) ==
--- NOTE | 2017-04-22 06:18 | Emergency Department Note ---
Disposition Clinical Impression: Anemia Qualifiers: Anemia type: iron deficiency Iron deficiency anemia type: chronic blood loss Qualified Code(s): D50.0 - Iron deficiency anemia secondary to blood loss ( chronic) GI bleeding Qualifiers: GI bleed type/associated pathology: unspecified gastrointestinal hemorrhage type Qualified Code(s): K92.2 - Gastrointestinal hemorrhage, unspecified Disposition: Admitted As Inpatient Condition: Fair General Adult HPI - General Chief complaint: ED Extremity Injury, Upper Stated complaint: fall Time Seen by Provider: 04/22/17 06:10 Source: patient Limitations: no limitations Nursing Notes Reviewed: Yes Vital Signs Reviewed: Yes - History of Present Illness HPI Narrative: 81 year old male lives along with history of hypertension, anemia, frequent fall presents with fall again. Pt reported that he felt dizziness and fell on the ground. He admitted he lost consciousness but not sure how long. Pt called EMS when he woke up. Pt denied headache and chest pain. Denied abdominal pain. No incontinency of urinating and bowel movement. Denied chill and fever. Pt is not on blood thinner. Denied weakness of extremities. Pt fell on February and had hematoma and cellulitis in left lower extremity. It was persistent. Onset (ago): hour(s) (2-3) Pain Scale: 0 - Related Data Home Medications Medication Instructions Recorded Confirmed Docusate [Colace] 100 mg PO DAILY PRN 03/09/17 04/22/17 Ferrous Sulfate [Iron] 325 mg PO BID 03/09/17 04/22/17 Finasteride [Proscar] 5 mg PO DAILY 03/09/17 04/22/17 Furosemide [Lasix] 20 mg PO DAILY PRN 03/09/17 04/22/17 Losartan Potassium [Cozaar] 100 mg PO DAILY 03/09/17 04/22/17 Multivit-Min/FA/Lycopen/Lutein 1 tab PO DAILY 03/09/17 04/22/17 [Centrum Silver Men Tablet] Ranolazine [Ranexa] 1,000 mg PO BID 03/09/17 04/22/17 Simvastatin [Zocor] 20 mg PO DAILY 03/09/17 04/22/17 Tamsulosin [Flomax] 0.4 mg PO DAILY 03/09/17 04/22/17 Prasugrel [Effient] 10 mg PO DAILY 04/22/17 04/22/17 Previous Rx's Medication Instructions Recorded amLODIPine [Norvasc] 10 mg PO DAILY tablet 03/19/17 Allergies Allergy/AdvReac Type Severity Reaction Status Date / Time bacitracin [From Polysporin] Allergy Hives Verified 04/22/17 06:07 Neomycin Allergy Hives Verified 04/22/17 06:07 [From Neosporin ([id number])] polymyxin B [From Polysporin] Allergy Hives Verified 04/22/17 06:07 Constitutional: Denies: fever, chills, weakness Eyes: Denies: eye pain, eye discharge, vision change ENT ED: Denies: ear pain, throat pain, dental pain Cardiovascular: Denies: chest pain, palpitations, dyspnea on exertion Respiratory: Denies: cough, dyspnea, wheezes Gastrointestinal: Denies: abdominal pain, nausea, vomiting Genitourinary: Denies: urgency, dysuria, frequency Musculoskeletal: Reports: other (left lower leg swelling). Denies: back pain, neck pain Integumentary: Reports: abrasion, lesions (some skin tear on left elbow). Denies: rash Neurological: Reports: weakness (generalized weakness). Denies: headache, numbness Psychiatric: Denies: anxiety, depression, suicidal thoughts Endocrine: Denies: fatigue, heat or cold intolerance Hematological/Lymphatic: Denies: easy bleeding, easy bruising Allergic/Immunologic: Denies: facial swelling, urticaria Past Medical History - Past Medical History Medical history: Reports: CHF, myocardial infarction, TIA Surgical history: Reports: angioplasty/stent, cataract, herniorrhaphy Psychiatric history: Reports: no psych history - Social History Smoking Status: Never smoker Smokeless Tobacco Status: No Alcohol use: Reports: none Drug use: Reports: none Physical Exam - General Limitations: no limitations General appearance: alert, in no apparent distress - Head Head exam: atraumatic, normal inspection - Eye Eye exam: Present: normal appearance. Absent: scleral icterus, conjunctival injection - ENT ENT exam: normal exam - Neck Neck exam: Present: normal inspection, full ROM, trachea midline. Absent: tenderness - Chest Chest inspection: Present: normal inspection, symmetric chest wall rise. Absent : tenderness - Respiratory Respiratory exam: Present: normal lung sounds bilaterally. Absent: respiratory distress, wheezes - Cardiovascular Cardiovascular exam: Present: regular rate, normal rhythm - Abdominal Exam Abdominal exam: Present: soft, Non-Tender - Rectal Exam Reactor Operator present during exam: Yes Rectal exam: Present: heme (+) stool, black stool - Extremities Exam Extremities exam: Present: calf tenderness (a 6x8 hematoma on left somers, erythema, no warmth, tender to palpation, left calf tender), other - Back Exam Back exam: Present: normal inspection, full ROM. Absent: tenderness - Neurological Exam Neurological exam: Present: alert, oriented X3 - Psychiatric Psychiatric exam: Present: normal affect, normal mood - Skin Skin exam: Present: warm (a small tear on left elbow, no active bleeding) Course Vital Signs Temperature 97.5 F L 04/22/17 06:03 Pulse Rate 61 04/22/17 06:03 Respiratory Rate 20 04/22/17 06:03 Blood Pressure 100/51 04/22/17 06:03 O2 Sat by Pulse Oximetry 99 04/22/17 06:03 Temperature 97.6 F 04/22/17 09:57 Pulse Rate 69 04/22/17 11:06 Respiratory Rate 22 04/22/17 11:06 Blood Pressure 114/54 04/22/17 11:06 O2 Sat by Pulse Oximetry 97 04/22/17 11:06 Oxygen Delivery Oxygen Delivery Room Air Medical Decision Making - [facility] Narrative Medical decision making narrative: 81 year old male with history of hypertension, CHF, OR and TIA, anemia, frequent falll presents with fall again this morning. Pt reported light headache and dizziness prior to fall. He denied hit his head. But admit he lost consciousness. Pt denied headache or focal weakness. yesterday CBC indicated hemoglobin 7.4. physical exam: a small skin tear on left elbow, no active bleeding, left somers has a big hematoma (from fall in February), left calf tender. no focal neurology deficit. impression: symptomatic anemia (will repeat CBC if needed will give blood transfusion), LOC ( head CT rule out intracranial bleeding and other abnormality), left lower leg pain, swelling (although has history of hematoma and treated as cellulitis in february, due to left calf tender, will go ultrasound to rule out DVT), pt lives by himself with multiple medical condition and frequent fall, consider social consult. 07:35 am Duplex report: negative DVT. 08:06 CBC report : hemoglobin 7.0 ( 7.4 yesterday, 7.9 on 04/17) , rectal exam: guac test positive. 1 unit blood transfusion ordered. BP around 100/60, BUN 37, cr. 1.71, 500ml NS given. Admit patient for: anemia, GI bleeding and syncope. Endoscopy and colonoscopy done on 03/11/17, internal hemorrhoids found 08:30 spoke to hospitalist, pt is accepted for admission - Lab Data Lab results reviewed: Yes I reviewed the patient's lab results. Result diagrams: 04/22/17 06:48 04/22/17 06:48 Lab Results 04/22/17 04/22/17 04/22/17 Range/Units 06:48 06:48 06:48 WBC 7.8 (4.3-11.1) K/mcL RBC 2.33 L (4.19-5.50) M/mcL Hgb 7.0 L (12.9-16.9) g/dL Hct 22.8 L (37.5-50.1) % MCV 97.9 (83.0-100.0) fL MCH 30.0 (28.0-33.3) pg MCHC 30.7 L (31.6-35.5) g/dL RDW 17.4 H (11.5-14.5) % Plt Count 257 (140-400) K/mcL MPV 9.6 (9.4-12.4) fL Immature Gran % 0.9 (0-4) % Seg Neutrophils % 84.1 % Lymphocytes % 4.9 % Monocytes % 8.5 % Eosinophils % 1.2 % Basophils % 0.4 % Neutrophils # 6.5 (1.6-8.9) K/mcL Lymphocytes # 0.4 L (0.6-4.6) K/mcL Monocytes # 0.7 (0.0-1.3) K/mcL Eosinophils # 0.1 (0.0-0.6) K/mcL Basophils # 0.0 (0.0-0.2) K/mcL Sodium 135 L (136-145) mEq/L Potassium 4.9 (3.5-5.1) mEq/L Chloride 108 H (98-107) mEq/L Carbon Dioxide 20 L (23-29) mEq/L BUN 37 H (8-23) mg/dL Creatinine 1.71 H (0.70-1.30) mg/dL Est GFR ( Amer) 47 L (> 60) Est GFR (Non-Af Amer) 39 L (> 60) BUN/Creatinine Ratio 22 (6-26) Glucose 113 H (70-105) mg/dL Calculated Osmolality 289 (280-300) Calcium 8.8 (8.6-10.3) mg/dL Total Bilirubin 0.4 (0.3-1.0) mg/dL AST 32 (13-39) Units/L ALT 23 (7-52) Units/L Alkaline Phosphatase 66 (34-104) Units/L Troponin I (< 0.04) ng/mL B-Natriuretic Peptide (Less than 100) pg/mL Serum Total Protein 5.8 L (6.4-8.9) g/dL Albumin 3.6 (3.5-5.7) g/dL Globulin 2.2 L (2.4-3.5) g/dL Albumin/Globulin Ratio 1.6 (1.1-2.2) Blood Type B POSITIVE Antibody Screen NEGATIVE Crossmatch See Detail 04/22/17 04/22/17 Range/Units 06:48 07:47 WBC (4.3-11.1) K/mcL RBC (4.19-5.50) M/mcL Hgb (12.9-16.9) g/dL Hct (37.5-50.1) % MCV (83.0-100.0) fL MCH (28.0-33.3) pg MCHC (31.6-35.5) g/dL RDW (11.5-14.5) % Plt Count (140-400) K/mcL MPV (9.4-12.4) fL Immature Gran % (0-4) % Seg Neutrophils % % Lymphocytes % % Monocytes % % Eosinophils % % Basophils % % Neutrophils # (1.6-8.9) K/mcL Lymphocytes # (0.6-4.6) K/mcL Monocytes # (0.0-1.3) K/mcL Eosinophils # (0.0-0.6) K/mcL Basophils # (0.0-0.2) K/mcL Sodium (136-145) mEq/L Potassium (3.5-5.1) mEq/L Chloride (98-107) mEq/L Carbon Dioxide (23-29) mEq/L BUN (8-23) mg/dL Creatinine (0.70-1.30) mg/dL Est GFR ( Amer) (> 60) Est GFR (Non-Af Amer) (> 60) BUN/Creatinine Ratio (6-26) Glucose (70-105) mg/dL Calculated Osmolality (280-300) Calcium (8.6-10.3) mg/dL Total Bilirubin (0.3-1.0) mg/dL AST (13-39) Units/L ALT (7-52) Units/L Alkaline Phosphatase (34-104) Units/L Troponin I < 0.03 (< 0.04) ng/mL B-Natriuretic Peptide 9 (Less than 100) pg/mL Serum Total Protein (6.4-8.9) g/dL Albumin (3.5-5.7) g/dL Globulin (2.4-3.5) g/dL Albumin/Globulin Ratio (1.1-2.2) Blood Type Antibody Screen Crossmatch - Radiology Data Radiology results reviewed: Yes I reviewed the patient's radiology results.
[2017-04-22 07:00] LABS: Basophils % 0.4 %; Eosinophils # 0.1 K/mcL (0.0-0.6); Eosinophils % 1.2 %; Hematocrit 22.8 % (37.5-50.1); Immature Granulocytes % 0.9 % (0-4); Lymphocytes # 0.4 K/mcL (0.6-4.6); Lymphocytes % 4.9 %; Mean Corpuscular HGB Conc 30.7 g/dL (31.6-35.5); Mean Corpuscular Volume 97.9 fL (83.0-100.0); Mean Platelet Volume 9.6 fL (9.4-12.4); Monocytes # 0.7 K/mcL (0.0-1.3); Monocytes % 8.5 %; Neutrophils # 6.5 K/mcL (1.6-8.9); Platelet Count 257 K/mcL (140-400); Red Blood Count 2.33 M/mcL (4.19-5.50); Red Cell Distribution Width 17.4 % (11.5-14.5); Segmented Neutrophils % 84.1 %
[2017-04-22 07:23] LABS: Albumin 3.6 g/dL (3.5-5.7); Albumin/Globulin Ratio 1.6 (1.1-2.2); Bilirubin,Total 0.4 mg/dL (0.3-1.0); Calcium 8.8 mg/dL (8.6-10.3); Globulin 2.2 g/dL (2.4-3.5); Potassium 4.9 mEq/L (3.5-5.1); Total Protein 5.8 g/dL (6.4-8.9)
--- NOTE | 2017-04-22 08:07 | Emergency Department Note ---
START Narrative - START START: For this encounter, I have reviewed the RAYON CONER or PA documentation, treatment plan, and medical decision making; and I have had face to face time with this patient. 81 year old male with history of falls in the past week and anemia an dmost recently had a colonoscopy for evaluation but we do not have the results. Patinet hgb is 7.9 and hemmocuclt positive. We will admit for anemia/GI bleed and syncope. Trauma eval is negative. WE will admit to medicine and trasnfuse one unit
[2017-04-22] MEDS ORDERED: 0.9 % Sodium Chloride 500 ML IVC ONE ×2 (08:13→10:05)
[2017-04-22] MEDS ORDERED: *HR* Promethazine 25 MG/ML VIAL IVP PRN (08:32)
[2017-04-22] MEDS ORDERED: *HR* HYDROcodone/Acet 5/325 mg TABLET PO PRN (08:32)
[2017-04-22] MEDS ORDERED: Ondansetron 4 MG/2 ML VIAL IVP PRN (08:32)
[2017-04-22] MEDS ORDERED: Naloxone 0.4 MG/ML INJ IVP PRN (08:32)
[2017-04-22] MEDS ORDERED: Acetaminophen 325 MG TABLET PO PRN (08:32)
[2017-04-22] MEDS ORDERED: 0.9 % Sodium Chloride 250 ML ONE (09:33)
[2017-04-22] MEDS ORDERED: 0.9 % Sodium Chloride 500 ML ONE (10:05)
[2017-04-22] MEDS ORDERED: 0.9 % Sodium Chloride 1,000 ML IVC SCH (10:45)
--- NOTE | 2017-04-22 10:48 | Internal Med History&Physical ---
Date of Encounter: 04/22/17 Time of Encounter: 10:43 Assessment and Plan (1) Syncope Current visit: Yes Status: Acute Admit the pt into Tele He is high risk pt, does need close monitoring for more than 2 nights due to his complex medical problems - Anemia, Syncope and EL Check serial trop IV hydration Need to r/o ACS and Arrythamias 2 D Echo and Carotid Doppler in AM Reviewed 2 D Echo from 10/03 showed preserved LVEF and mild diastolic dysfunction Qualifiers: Qualified Code(s): R55 - Syncope and collapse (2) Anemia due to blood loss Current visit: No Status: Acute Hb @ 7.0.. Had EGD and Clonoscopy done during last admission in Feb Reviewed results.. no acute findings at that time Consulted GI for further work up..May need RBC tag blood cell scan transfuse 1 U PRBC Close monitoring Hb (3) Acute renal failure superimposed on stage 3 chronic kidney disease Current visit: Yes Status: Acute Slightly elevated Cr than baseline on IV hydration cont close monitoring Qualifiers: Qualified Code(s): N17.9 - Acute kidney failure, unspecified; N18.3 - Chronic kidney disease, stage 3 (moderate); N18.3 - Chronic kidney disease, stage 3 (moderate) (4) GI bleed Current visit: Yes Status: Acute Hemoccult positive however Pt is on Iron supplements too GI consulted Qualifiers: GI bleed type/associated pathology: unspecified gastrointestinal hemorrhage type Qualified Code(s): K92.2 - Gastrointestinal hemorrhage, unspecified (5) Essential hypertension Current visit: No Status: Acute Slightly on lower side Hold PO meds (6) Frequent falls Current visit: No Status: Acute PT / OT eval (7) Physical deconditioning Current visit: No Status: Acute (8) CAD (coronary artery disease) Current visit: No Status: Chronic resumed all home meds Qualifiers: Coronary Disease-Associated Artery/Lesion type: [place] artery [place] vs. transplanted heart: [place] heart Associated angina: without angina Qualified Code(s): I25.10 - Atherosclerotic heart disease of [place] coronary artery without angina pectoris (9) Dehydration Current visit: Yes Status: Acute on IVF Internal Medicine - H&P: HPI Admitted From: Emergency Dept Plans for Post Hospital Care: Home History of present illness: Mr. Howe is a 81 year old male with past medical history significant for hypertension, Diastolic CHF, CAD TIA, PAD, frequent falls and chronic anemia who was brought into ER by EMS after pt sustained a fall at home. As per pt, he felt lightheadedness, dizzy and fell on the floor. Did loose consciousness. Denied any head injury. Denied any bruises / pain on extremities. He is alett, awake and O x 3. Denied any CP / SOB. He had fall in the past in Feb which lead to a Left leg hematoma at that time. Past Med Surg Social Fam HX - Past Medical History Medical history: CHF, myocardial infarction, TIA Psychiatric history: no psych history - Past Surgical History Surgical History: angioplasty/stent, cataract, herniorrhaphy - Social History Smoking Status: Never smoker Smokeless Tobacco Status: No Alcohol use: none Drug use: none - Family History Mother Living Status: Hx Family Cancer: Yes (Brain Cancer) Father Living Status: Hx Family Cardiac Disorders: Yes Internal Medicine - H&P: Meds Docusate [Colace] 100 mg PO DAILY PRN 03/09/17 [History] Ferrous Sulfate [Iron] 325 mg PO BID 03/09/17 [History] Finasteride [Proscar] 5 mg PO DAILY 03/09/17 [History] Furosemide [Lasix] 20 mg PO DAILY PRN 03/09/17 [History] Losartan Potassium [Cozaar] 100 mg PO DAILY 03/09/17 [History] Multivit-Min/FA/Lycopen/Lutein [Centrum Silver Men Tablet] 1 tab PO DAILY [History] Ranolazine [Ranexa] 1,000 mg PO BID 03/09/17 [History] Simvastatin [Zocor] 20 mg PO DAILY 03/09/17 [History] Tamsulosin [Flomax] 0.4 mg PO DAILY 03/09/17 [History] amLODIPine [Norvasc] 10 mg PO DAILY tablet 03/19/17 [Rx] Prasugrel [Effient] 10 mg PO DAILY 04/22/17 [History] 3 Allergy/AdvReac Type Severity Reaction Status Date / Time bacitracin [From Polysporin] Allergy Hives Verified 04/22/17 06:07 Neomycin Allergy Hives Verified 04/22/17 06:07 [From Neosporin ([id number])] polymyxin B [From Polysporin] Allergy Hives Verified 04/22/17 06:07 All Systems PM: A 10-system review of systems was performed and is negative for pertinent findings except as documented above in the HPI. Review of systems: All the systems are reviewed everything is benign except the systems and symptoms I mentioned in the history of present illness - Constitutional Vitals: Temp Pulse Resp BP Pulse Ox 97.6 F 70 20 87/42 96 04/22/17 09:57 04/22/17 09:57 04/22/17 10:25 04/22/17 10:25 04/22/17 06:46 General appearance: Present: cooperative, A&O X 3, no acute distress, answers questions appropriately - Head Head exam: Present: atraumatic, normal inspection, normocephalic - Neck Neck exam general surgery: Present: supple - Respiratory Respiratory exam: Present: decreased breath sounds. Absent: rales, respiratory distress, rhonchi, wheezes - Cardiovascular Cardiovascular exam: Present: RRR, +S1, +S2. Absent: systolic murmur, tachycardia - GI/Abdominal GI/Abdominal exam: Present: normal bowel sounds, soft. Absent: rebound, rigid, tenderness - Extremities Exam Extremities exam: Absent: calf tenderness, pedal edema, tenderness - Back Exam Back exam: Absent: CVA tenderness (L), CVA tenderness (R) - Neurological Exam Neurological exam: Present: alert, oriented X3 - Psychiatric Psychiatric exam: Present: normal affect, normal mood - Skin Skin exam: Absent: rash Internal Med - H&P Results - Labs CBC & Chem 7: 04/22/17 06:48 04/22/17 06:48
--- NOTE | 2017-04-22 14:34 | Electrocardiograph Report ---
[facility] Test Date: 2017-04-22 Pat Name: Stephan Howe Department: 102 Room: 2S5 Gender: M Residential Sales: : 1935 Requested By: Robin Lanza Order Number: [id number] Reading MD: Irving Latif MD Measurements Intervals [place] Rate: 62 P: 70 NH: 221 QRS: 48 QRSD: 102 T: 70 QT: 413 QTc: 418 Interpretive Statements SINUS RHYTHM WITH FIRST DEGREE AV BLOCK Electronically Signed On 04-22-2017 14:32:28 EST by Irving Latif MD
[2017-04-22 16:03] LABS: % Iron Saturation 11 % (20-55); Iron 35 mcg/dL (65-175); Transferrin 223 mg/dL (203-362); Troponin I < 0.03 ng/mL (< 0.04)
[2017-04-22 16:08] LABS: Bilirubin,Urine Negative (Negative); Blood,Urine Negative (Negative); Clarity,Urine Clear (Clear); Color,Urine Yellow (Yellow); Glucose,Urine (UA) Normal (Normal); Ketones,Urine Negative (Negative); Leukocyte Esterase,Urine Negative (Negative); Nitrite,Urine Negative (Negative); Protein,Urine Negative (Neg-Trace); Specific Gravity,Urine 1.017 (1.010-1.025); Urobilinogen,Urine Normal (Normal)
[2017-04-22] MEDS: Ranolazine 500 MG TAB.ER.12H PO SCH (20:42)
[2017-04-23 05:49] LABS: Basophils % 0.6 %; Eosinophils # 0.3 K/mcL (0.0-0.6); Eosinophils % 5.2 %; Hemoglobin 7.5 g/dL (12.9-16.9); Immature Granulocytes % 0.5 % (0-4); Lymphocytes # 0.6 K/mcL (0.6-4.6); Lymphocytes % 9.2 %; Mean Corpuscular HGB Conc 31.3 g/dL (31.6-35.5); Mean Corpuscular Hemoglobin 29.5 pg (28.0-33.3); Mean Corpuscular Volume 94.5 fL (83.0-100.0); Mean Platelet Volume 9.3 fL (9.4-12.4); Monocytes # 0.9 K/mcL (0.0-1.3); Monocytes % 13.7 %; Neutrophils # 4.6 K/mcL (1.6-8.9); Platelet Count 217 K/mcL (140-400); Red Blood Count 2.54 M/mcL (4.19-5.50); Red Cell Distribution Width 17.5 % (11.5-14.5); Segmented Neutrophils % 70.8 %
[2017-04-23 06:02] LABS: Alanine Aminotransferase 22 Units/L (7-52); Albumin 3.1 g/dL (3.5-5.7); Albumin/Globulin Ratio 1.5 (1.1-2.2); Alkaline Phosphatase 62 Units/L (34-104); Aspartate Amino Transferase 31 Units/L (13-39); BUN/Creatinine Ratio 19 (6-26); Bilirubin,Total 0.4 mg/dL (0.3-1.0); Blood Urea Nitrogen 26 mg/dL (8-23); Calcium 8.4 mg/dL (8.6-10.3); Carbon Dioxide 24 mEq/L (23-29); Chloride 110 mEq/L (98-107); Chol/HDL Ratio 2.2 (0-4.9); Cholesterol 98 mg/dL (< 200); Globulin 2.1 g/dL (2.4-3.5); Glucose 90 mg/dL (70-105); HDL Cholesterol 44 mg/dL (40-59); LDL Cholesterol,Calculated 43 mg/dL (0-99); Magnesium 2.3 mg/dL (1.6-2.6); Osmolality,Calculated 288 (280-300); Potassium 4.7 mEq/L (3.5-5.1); Sodium 137 mEq/L (136-145); Total Protein 5.2 g/dL (6.4-8.9); Triglycerides 57 mg/dL (< 150); eGFR For African Americans > 60 (> 60); eGFR For Non-African Americans 50 (> 60)
[2017-04-23] MEDS: Multivit/Ca/Min/Fe/FA 1 TAB TABLET PO SCH (09:13)
[2017-04-23] MEDS: Finasteride 5 MG TABLET PO SCH (09:13)
[2017-04-23] MEDS: Ranolazine 500 MG TAB.ER.12H PO SCH ×2 (09:14→20:37)
--- NOTE | 2017-04-23 11:48 | Internal Med Progress Note ---
Date of Encounter: 04/23/17 Time of Encounter: 11:47 - Assessment and plan (1) Acute renal failure superimposed on stage 3 chronic kidney disease Current Visit: Yes Status: Acute Assessment and plan: improving Has received IVF since arrival, continue same, continue to monitor, avoid nephrotoxins Qualifiers: Acute renal failure type: unspecified Qualified Code(s): N17.9 - Acute kidney failure, unspecified; N18.3 - Chronic kidney disease, stage 3 (moderate) ; N18.3 - Chronic kidney disease, stage 3 (moderate) (2) GI bleed Current Visit: Yes Status: Suspected Assessment and plan: suspected Patient does hav chronic anemia and his HB hovers around 7 This morning HB is 7.5 He also developed syncope, possibly as a result of his anemia Carotid USS negative ECHO is pending Head CT unremarkable Continue monitoring Recent endoscopy was unremarkable GI is following. Hemodynamically stable at this time Qualifiers: GI bleed type/associated pathology: unspecified gastrointestinal hemorrhage type Qualified Code(s): K92.2 - Gastrointestinal hemorrhage, unspecified (3) Syncope Current Visit: Yes Status: Acute Assessment and plan: as above ECHO from 09/2016 with preserved EF and mild diastolic dysfunction Qualifiers: Syncope type: unspecified Qualified Code(s): R55 - Syncope and collapse (4) Anemia due to blood loss Current Visit: Yes Status: Acute Assessment and plan: suspected due to GIB Patient with melena and syncope, as well s drop in HB Hb improved to 7.5 this a.m Continue close monitoring (5) DVT prophylaxis Current Visit: Yes Status: Acute Assessment and plan: SCDs (6) Essential hypertension Current Visit: Yes Status: Chronic (7) Frequent falls Current Visit: Yes Status: Acute Assessment and plan: PTOT eval Patient deemed unsafe to live home alone and will likely need placement He is also anemic and as acute on chronic kidney injury (8) Physical deconditioning Current Visit: Yes Status: Acute Assessment and plan: PTOT eval (9) CAD (coronary artery disease) Current Visit: Yes Status: Chronic Assessment and plan: continue home meds Qualifiers: Coronary Disease-Associated Artery/Lesion type: [place] artery [place] vs. transplanted heart: [place] heart Associated angina: without angina Qualified Code(s): I25.10 - Atherosclerotic heart disease of [place] coronary artery without angina pectoris - Subjective Interval history: 81 M admitted for syncope, acute blood loss anemia and LGIB He also has EL on CKD He has no new complains - Constitutional Vitals: Temp Pulse Resp BP Pulse Ox 98.4 F 65 18 107/53 96 04/23/17 06:54 04/23/17 06:54 04/23/17 06:54 04/23/17 06:54 04/23/17 09:17 General appearance: Present: cooperative, A&O X 3, no acute distress, answers questions appropriately - Head Head exam: Present: atraumatic, normocephalic - Eye Eye exam: Present: PERRL, conjuntiva pink, sclera anicteric - Neck Neck exam general surgery: Present: supple, trachea midline. Absent: lymphadenopathy - Respiratory Respiratory exam: Present: wheezes. Absent: accessory muscle use, rales, rhonchi - Cardiovascular Cardiovascular exam: Present: RRR, +S1, +S2. Absent: diastolic murmur, gallop, rubs, systolic murmur - GI/Abdominal GI/Abdominal exam: Present: normal bowel sounds, soft, no peritoneal signs. Absent: distended, tenderness - Extremities Exam Extremities exam: Present: warm, radial pulses palpable and symmetrical. Absent : calf tenderness, cyanotic, pedal edema Additional comments: Left leg hematoma - Neurological Exam Neurological exam: Present: alert, CN II-XII intact, oriented X3, no focal deficits. Absent: pronater drift, facial droop, speech deficit - Skin Skin exam: Present: dry, intact Internal Medicine: Result - Labs CBC & Chem 7: 04/23/17 05:16 04/23/17 05:16 Labs: Short CBC 04/23/17 Range/Units 05:16 WBC 6.5 (4.3-11.1) K/mcL Hgb 7.5 L (12.9-16.9) g/dL Hct 24.0 L (37.5-50.1) % Plt Count 217 (140-400) K/mcL Neutrophils # 4.6 (1.6-8.9) K/mcL BMP 04/23/17 05:16 Sodium 137 Potassium 4.7 Chloride 110 H Carbon Dioxide 24 BUN 26 H Creatinine 1.37 H Glucose 90 Calcium 8.4 L Cardiac Enzymes 04/22/17 04/22/17 Range/Units 15:02 20:55 Troponin I < 0.03 < 0.03 (< 0.04) ng/mL Liver Function 04/23/17 Range/Units 05:16 Total Bilirubin 0.4 (0.3-1.0) mg/dL AST 31 (13-39) Units/L ALT 22 (7-52) Units/L Alkaline Phosphatase 62 (34-104) Units/L Albumin 3.1 L (3.5-5.7) g/dL Urine 04/22/17 Range/Units 15:55 Urine Color Yellow (Yellow) Urine Clarity Clear (Clear) Urine pH 6.0 (5.0-8.0) pH Units Ur Specific [place] 1.017 (1.010-1.025) Urine Protein Negative (Neg-Trace) mg/dL Urine Glucose (UA) Normal (Normal) mg/dL - VTE Documentation of Mechanical Device: Venous foot pump, device Consult Discharge Plan - Plan Referrals: Irving Latif Jr, MD [Primary Care Provider] -
[2017-04-23] MEDS ORDERED: Ipratropium/Albuterol Neb 3 ML IH ONE (11:55)
--- NOTE | 2017-04-23 12:04 | Gastroenterology Consult Note ---
<Jc Amado - Last Filed: 04/23/17 12:02> Date of Encounter: 04/23/17 Time of Encounter: 10:55 - Assessment and plan (1) GI bleed Current Visit: Yes Status: Acute Assessment and plan: In the ED, rectal exam revealed heme positive stool and black stool. Pt had EGD and colonoscopy completed recently which did not reveal a source of bleeding. Plan for enteroscopy tomorrow, if negative, consider repeating colonoscopy. Keep NPO at midnight. Qualifiers: GI bleed type/associated pathology: unspecified gastrointestinal hemorrhage type Qualified Code(s): K92.2 - Gastrointestinal hemorrhage, unspecified (2) Anemia Current Visit: Yes Status: Acute Assessment and plan: Hgb 7 on admission and this AM Hgb 7.5. Continue to monitor CBC and transfuse PRBC as needed. Plan for enteroscopy tomorrow. Keep NPO at midnight. Qualifiers: Anemia type: unspecified type Qualified Code(s): D64.9 - Anemia, unspecified - Time Spent With Patient Total time spent is greater than 50% in coordination of care (as documented) at patient's floor/unit and/or counseling patient: GI History of Present Illness - Data of Consult Patient: new to practice Consult date: 04/23/17 Requesting Physician: Maciel Alcala MD - Consult Narrative Reason for consult: GI bleed, anemia History of present illness: Mr. Howe is a 81 year old male with PMHx of CKD, CHF, [place], TIA, HTN, CAD, chronic anemia who presented to the ED after sustaining a fall. He reports feeling lightheaded, dizzy and fell on the floor. He denied any head injury. In the ED, rectal exam revealed heme positive stool and black stool. Hgb 7 on admission and this AM Hgb 7.5. He denies fever, chills, chest pain, SOB, abdominal pain, nausea, vomiting, hematochezia. Procedures: Colonoscopy 03/11/2017 Dr. Villa: Internal hemorrhoids, diverticulosis. EGD 03/10/2017 Dr. Villa: H pylori negative. Colonoscopy 03/10/2017 Dr. Villa: Poor prep, procedure aborted. NSAIDs: None Anticoagulation: Effient Past Med Surg Social Fam HX - Past Medical History Medical history: CHF, myocardial infarction, TIA Psychiatric history: no psych history - Past Surgical History Surgical History: angioplasty/stent, cataract, herniorrhaphy - Social History Smoking Status: Never smoker Smokeless Tobacco Status: No Alcohol use: none Drug use: none - Family History Mother Living Status: Hx Family Cancer: Yes (Brain Cancer) Father Living Status: Hx Family Cardiac Disorders: Yes - Gastrointestinal Gastrointestinal: Present: as per HPI - Constitutional Constitutional: as per HPI - EENT Eyes: as per HPI Ears: Present: as per HPI Nose, mouth and throat: Present: as per HPI - Cardiovascular Cardiovascular ROS: Present: as per HPI - Respiratory Respiratory IM: Present: as per HPI - Genitourinary Genitourinary: Absent: change in color, Urinary frequency - Neurological ROS Neurological GI: Present: as per HPI - Hematologic/Lymphatic Hematologic/Lymphatic pediatric: Present: as per HPI - Musculoskeletal Musculoskeletal ROS GI: Present: as per HPI - Integumentary Integumentary GI: Present: as per HPI - Psychiatric ROS Psychiatric GI: Present: as per HPI - Endocrine Endocrine IM: Present: as per HPI - Constitutional Vitals: Temp Pulse Resp BP Pulse Ox 98.4 F 65 18 107/53 96 04/23/17 06:54 04/23/17 06:54 04/23/17 06:54 04/23/17 06:54 04/23/17 09:17 General appearance: Present: cooperative, A&O X 3, no acute distress, answers questions appropriately - Head Head exam: Present: atraumatic, normocephalic - Eye Eye exam: Present: normal appearance, sclera anicteric - ENT ENT exam: Present: mucous membranes dry - Neck Neck exam general surgery: Present: normal inspection, trachea midline - Respiratory Respiratory exam: Present: CTAB. Absent: rales, rhonchi - Cardiovascular Cardiovascular exam: Present: RRR, +S1, +S2 - GI/Abdominal GI/Abdominal exam: Present: soft, no peritoneal signs. Absent: distended, firm , guarding, tenderness - Rectal Rectal exam: Present: deferred - Extremities Exam Extremities exam: Present: warm - Neurological Exam Neurological exam: Present: no focal deficits - Psychiatric Psychiatric exam: Present: normal affect, normal mood - Skin Skin exam: Present: dry, intact, normal color, warm Results - Labs CBC & Chem 7: 04/23/17 05:16 04/23/17 05:16 Labs: Last Result Calcium 8.4 mg/dL (8.6-10.3) L 04/23/17 05:16 Iron 35 mcg/dL (65-175) L 04/22/17 15:02 % Saturation 11 % (20-55) L 04/22/17 15:02 Transferrin 223 mg/dL (203-362) 04/22/17 15:02 Troponin I < 0.03 ng/mL (< 0.04) 04/22/17 20:55 Triglycerides 57 mg/dL (< 150) 04/23/17 05:16 Entire Visit Hgb 7.5 g/dL (12.9-16.9) L 04/23/17 05:16 Hct 24.0 % (37.5-50.1) L 04/23/17 05:16 Total Bilirubin 0.4 mg/dL (0.3-1.0) 04/23/17 05:16 AST 31 Units/L (13-39) 04/23/17 05:16 ALT 22 Units/L (7-52) 04/23/17 05:16 Consult Discharge Plan - Plan Referrals: Irving Latfi Jr, MD [Primary Care Provider] - <OscarGerardCarlos - Last Filed: 04/23/17 19:58> Date of Encounter: 04/23/17 Time of Encounter: 19:00 - Time Spent With Patient Total time spent is greater than 50% in coordination of care (as documented) at patient's floor/unit and/or counseling patient: GI History of Present Illness - Data of Consult Requesting Physician: Maciel Alcala MD - Consult Narrative History of present illness: Mr. Howe is a 81 year old male - Constitutional Vitals: Temp Pulse Resp BP Pulse Ox 98.1 F 65 18 104/65 94 04/23/17 15:10 04/23/17 15:10 04/23/17 15:10 04/23/17 15:10 04/23/17 15:10 Results - Labs CBC & Chem 7: 04/23/17 05:16 04/23/17 05:16 Labs: Last Result Calcium 8.4 mg/dL (8.6-10.3) L 04/23/17 05:16 Iron 35 mcg/dL (65-175) L 04/22/17 15:02 % Saturation 11 % (20-55) L 04/22/17 15:02 Transferrin 223 mg/dL (203-362) 04/22/17 15:02 Troponin I < 0.03 ng/mL (< 0.04) 04/22/17 20:55 Triglycerides 57 mg/dL (< 150) 04/23/17 05:16 Entire Visit Hgb 7.5 g/dL (12.9-16.9) L 04/23/17 05:16 Hct 24.0 % (37.5-50.1) L 04/23/17 05:16 Total Bilirubin 0.4 mg/dL (0.3-1.0) 04/23/17 05:16 AST 31 Units/L (13-39) 04/23/17 05:16 ALT 22 Units/L (7-52) 04/23/17 05:16 - Attending Attestation I have personally performed a face to face evaluation on this patient. I have reviewed and agree with the care plan. History and Exam by me shows: Patient with anemia does has dark stool but per patient he is on oral iron supplement. An EGD and colonoscopy without a TURP [place] were unremarkable. Recommendation: Enteroscopy and if negative then cap endo as an outpatient
[2017-04-23] MEDS ORDERED: Artificial Tears SOLN 15 ML BOTTLE BOTH EYES PRN (16:32)
[2017-04-23] MEDS: Ipratropium/Albuterol Neb 3 ML IH PRN (22:35)
[2017-04-24 03:45] LABS: Basophils % 0.7 %; Eosinophils # 0.3 K/mcL (0.0-0.6); Eosinophils % 4.7 %; Hematocrit 24.2 % (37.5-50.1); Hemoglobin 7.4 g/dL (12.9-16.9); Immature Granulocytes % 0.7 % (0-4); Lymphocytes # 0.6 K/mcL (0.6-4.6); Lymphocytes % 9.8 %; Mean Corpuscular HGB Conc 30.6 g/dL (31.6-35.5); Mean Corpuscular Hemoglobin 29.1 pg (28.0-33.3); Mean Corpuscular Volume 95.3 fL (83.0-100.0); Mean Platelet Volume 9.8 fL (9.4-12.4); Monocytes # 0.9 K/mcL (0.0-1.3); Monocytes % 14.5 %; Neutrophils # 4.1 K/mcL (1.6-8.9); Platelet Count 224 K/mcL (140-400); Red Blood Count 2.54 M/mcL (4.19-5.50); Red Cell Distribution Width 17.4 % (11.5-14.5); Segmented Neutrophils % 69.6 %
[2017-04-24 04:03] LABS: BUN/Creatinine Ratio 17 (6-26); Blood Urea Nitrogen 21 mg/dL (8-23); Calcium 8.2 mg/dL (8.6-10.3); Carbon Dioxide 22 mEq/L (23-29); Chloride 110 mEq/L (98-107); Glucose 80 mg/dL (70-105); Osmolality,Calculated 284 (280-300); Potassium 4.4 mEq/L (3.5-5.1); Sodium 136 mEq/L (136-145); eGFR For African Americans > 60 (> 60); eGFR For Non-African Americans 55 (> 60)
[2017-04-24] MEDS: Multivit/Ca/Min/Fe/FA 1 TAB TABLET PO SCH (09:17)
[2017-04-24] MEDS: Ranolazine 500 MG TAB.ER.12H PO SCH ×2 (09:17→20:21)
[2017-04-24] MEDS: Finasteride 5 MG TABLET PO SCH (09:17)
[2017-04-24] MEDS ORDERED: *HR* Propofol 200 MG/20 ML VIAL IVP ONE (09:26)
--- NOTE | 2017-04-24 09:36 | Anesthesia Evaluation PreOp ---
Date of Encounter: 04/24/17 Time of Encounter: 09:34 - Past History Planned Operation: push enteroscopy Cardiac History: [place], CHF, HTN, Hyperlipidemia, Cardiac Stent Pulmonary History: Denies Any Significant HX [employer]OR History: TIA (no residual) Other Medical History: Renal (stage 3 CKD) Anesthesia History: No Prior Anesthetic Complications, Past Anesthesia (hernia, cataract, stent) Alcohol Use: none Drug use: none Medications and Allergies Docusate [Colace] 100 mg PO DAILY PRN 03/09/17 [History] Ferrous Sulfate [Iron] 325 mg PO BID 03/09/17 [History] Finasteride [Proscar] 5 mg PO DAILY 03/09/17 [History] Furosemide [Lasix] 20 mg PO DAILY PRN 03/09/17 [History] Losartan Potassium [Cozaar] 100 mg PO DAILY 03/09/17 [History] Multivit-Min/FA/Lycopen/Lutein [Centrum Silver Men Tablet] 1 tab PO DAILY [History] Ranolazine [Ranexa] 1,000 mg PO BID 03/09/17 [History] Simvastatin [Zocor] 20 mg PO DAILY 03/09/17 [History] Tamsulosin [Flomax] 0.4 mg PO DAILY 03/09/17 [History] amLODIPine [Norvasc] 10 mg PO DAILY tablet 03/19/17 [Rx] Prasugrel [Effient] 10 mg PO DAILY 04/22/17 [History] 3 Allergy/AdvReac Type Severity Reaction Status Date / Time bacitracin [From Polysporin] Allergy Hives Verified 04/22/17 06:07 Neomycin Allergy Hives Verified 04/22/17 06:07 [From Neosporin ([id number])] polymyxin B [From Polysporin] Allergy Hives Verified 04/22/17 06:07 - Meds/Allergy Pre-op Review Medications Reviewed: Yes Allergies Reviewed: Yes Beta Blockers on Current Med List: No Anesthesia Results - Labs 04/24/17 01:09 04/24/17 01:09 Anesthesia Exam Selected Entries 04/24/17 08:56 04/24/17 09:31 Temperature 98.1 F Pulse Rate 64 Respiratory Rate 16 Blood Pressure 154/73 O2 Sat by Pulse Oximetry 92 Oxygen Delivery Method Room Air NPO (# of Hours): 8 - HEENT Pupil (Motor): EOMI Mallampati: II Teeth: Missing Oral Opening: Greater than 3 - [employer] LOC: Oriented [employer] Motor: Normal RUE, Normal LUE, Normal RLE, Normal LLE, Normal Face [employer] Sensory: Normal: RUE, LUE, RLE, LLE, Face - Cardiac Rhythm: Regular Murmur: None - Pulmonary Breath Sounds: bilateral Clear Respiratory Effort: Symmetrical Anesthesia Assess/Plan ASA Score: 3 Modified [place] Scale for Level of Consciousness: Cooperative, oriented, and tranquil Anesthetic Plan: MAC Monitoring Plan: Standard Monitors Recovery Plan: Other (agrees to MAC)
--- NOTE | 2017-04-24 09:44 | Internal Med Progress Note ---
Date of Encounter: 04/24/17 Time of Encounter: 09:44 - Assessment and plan (1) Acute renal failure superimposed on stage 3 chronic kidney disease Current Visit: Yes Status: Resolved Assessment and plan: Resolved with gentle hydration IVF discontinued 04/23/17 continue to monitor, avoid nephrotoxins Qualifiers: Acute renal failure type: unspecified Qualified Code(s): N17.9 - Acute kidney failure, unspecified; N18.3 - Chronic kidney disease, stage 3 (moderate) ; N18.3 - Chronic kidney disease, stage 3 (moderate) (2) GI bleed Current Visit: Yes Status: Suspected Assessment and plan: suspected Patient does have chronic anemia and his HB hovers around 7 This morning HB is 7.4 He also developed syncope, possibly as a result of his anemia Carotid USS negative ECHO done noted for LVEF 60-65%, no significant valvular abnormality, no hypokinesis, mild LVDD Head CT unremarkable Continue monitoring Recent endoscopy was unremarkable GI is following. For EGD today Hemodynamically stable at this time Qualifiers: GI bleed type/associated pathology: unspecified gastrointestinal hemorrhage type Qualified Code(s): K92.2 - Gastrointestinal hemorrhage, unspecified (3) Syncope Current Visit: Yes Status: Acute Assessment and plan: as above Qualifiers: Syncope type: unspecified Qualified Code(s): R55 - Syncope and collapse (4) Anemia due to blood loss Current Visit: Yes Status: Acute Assessment and plan: suspected due to GIB Patient with melena and syncope, as well as drop in HB Hb stable at 7.4 this a.m Continue close monitoring (5) DVT prophylaxis Current Visit: Yes Status: Acute Assessment and plan: SCDs (6) Essential hypertension Current Visit: Yes Status: Chronic Assessment and plan: continue home meds (7) Frequent falls Current Visit: Yes Status: Acute Assessment and plan: PTOT eval-recommends SNF/ECF SW on board (8) Physical deconditioning Current Visit: Yes Status: Acute Assessment and plan: PTOT eval (9) CAD (coronary artery disease) Current Visit: Yes Status: Chronic Assessment and plan: continue home meds Qualifiers: Coronary Disease-Associated Artery/Lesion type: [place] artery [place] vs. transplanted heart: [place] heart Associated angina: without angina Qualified Code(s): I25.10 - Atherosclerotic heart disease of [place] coronary artery without angina pectoris - Subjective Interval history: 81 M admitted for syncope, acute blood loss anemia and GI bleed suspected to be lower GI bleed He has no new complains Awaiting EGD today He also has EL on CKD on admission, improved PTOT eval noted for ECF recommendation - Constitutional Vitals: Temp Pulse Resp BP Pulse Ox 98.1 F 64 16 154/73 92 04/24/17 09:31 04/24/17 09:31 04/24/17 09:31 04/24/17 09:31 04/24/17 09:31 General appearance: Present: cooperative, A&O X 3, no acute distress, answers questions appropriately - Head Head exam: Present: atraumatic, normocephalic - Eye Eye exam: Present: PERRL, conjuntiva pink, sclera anicteric Pupils: Present: PERRL - Neck Neck exam general surgery: Present: supple, trachea midline. Absent: lymphadenopathy - Respiratory Respiratory exam: Present: wheezes - Cardiovascular Cardiovascular exam: Present: RRR, +S1, +S2. Absent: diastolic murmur, gallop, rubs, systolic murmur - GI/Abdominal GI/Abdominal exam: Present: normal bowel sounds, soft, no peritoneal signs. Absent: distended, tenderness - Extremities Exam Extremities exam: Present: warm, radial pulses palpable and symmetrical. Absent : calf tenderness, cyanotic, pedal edema Additional comments: Left leg hematoma - Neurological Exam Neurological exam: Present: alert, CN II-XII intact, oriented X3, no focal deficits. Absent: pronater drift, facial droop, speech deficit - Skin Skin exam: Present: dry Internal Medicine: Result - Labs CBC & Chem 7: 04/24/17 01:09 04/24/17 01:09 Labs: Short CBC 04/24/17 Range/Units 01:09 WBC 5.9 (4.3-11.1) K/mcL Hgb 7.4 L (12.9-16.9) g/dL Hct 24.2 L (37.5-50.1) % Plt Count 224 (140-400) K/mcL Neutrophils # 4.1 (1.6-8.9) K/mcL BMP 04/24/17 01:09 Sodium 136 Potassium 4.4 Chloride 110 H Carbon Dioxide 22 L BUN 21 Creatinine 1.26 Glucose 80 Calcium 8.2 L - VTE Documentation of Mechanical Device: Intermittent pneumatic compression device Consult Discharge Plan - Plan Referrals: Irvnig Latif Jr, MD [Primary Care Provider] -
[2017-04-24] MEDS: Ipratropium/Albuterol Neb 3 ML IH PRN (21:27)
[2017-04-25 01:18] LABS: Basophils # 0.1 K/mcL (0.0-0.2); Basophils % 0.7 %; Eosinophils # 0.3 K/mcL (0.0-0.6); Eosinophils % 3.4 %; Hematocrit 24.2 % (37.5-50.1); Hemoglobin 7.6 g/dL (12.9-16.9); Immature Granulocytes % 0.7 % (0-4); Lymphocytes # 0.6 K/mcL (0.6-4.6); Mean Corpuscular HGB Conc 31.4 g/dL (31.6-35.5); Mean Corpuscular Hemoglobin 29.8 pg (28.0-33.3); Mean Corpuscular Volume 94.9 fL (83.0-100.0); Mean Platelet Volume 9.5 fL (9.4-12.4); Monocytes # 1.1 K/mcL (0.0-1.3); Monocytes % 14.3 %; Neutrophils # 5.4 K/mcL (1.6-8.9); Platelet Count 216 K/mcL (140-400); Red Blood Count 2.55 M/mcL (4.19-5.50); Red Cell Distribution Width 17.3 % (11.5-14.5); Segmented Neutrophils % 72.9 %
[2017-04-25 01:36] LABS: BUN/Creatinine Ratio 15 (6-26); Blood Urea Nitrogen 21 mg/dL (8-23); Calcium 8.5 mg/dL (8.6-10.3); Carbon Dioxide 22 mEq/L (23-29); Chloride 108 mEq/L (98-107); Glucose 139 mg/dL (70-105); Osmolality,Calculated 285 (280-300); Potassium 4.8 mEq/L (3.5-5.1); Sodium 135 mEq/L (136-145); eGFR For African Americans > 60 (> 60); eGFR For Non-African Americans 50 (> 60)
[2017-04-25] MEDS: Multivit/Ca/Min/Fe/FA 1 TAB TABLET PO SCH (07:58)
[2017-04-25] MEDS: Finasteride 5 MG TABLET PO SCH (07:58)
[2017-04-25] MEDS: Ranolazine 500 MG TAB.ER.12H PO SCH (08:07)
[2017-04-25] MEDS ORDERED: Furosemide 20 MG/2 ML VIAL IVP ONE ×2 (09:54→14:00)
--- NOTE | 2017-04-25 10:24 | Physician Discharge Referral ---
ExtendedCare Referral Info Transfer To: SNF Institutional Level of Care: Skilled - Diagnosis (1) Syncope Priority: Primary Status: Acute (2) Anemia due to blood loss Priority: Secondary Status: Acute (3) Physical deconditioning Priority: Secondary Status: Acute (4) GI bleed Priority: Secondary Status: Suspected (5) Acute renal failure superimposed on stage 3 chronic kidney disease Priority: Secondary Status: Resolved Prognosis: Fair Aware of Diagnosis: Patient Aware of Prognosis: Patient - Transfer Medications Home Medications: Docusate [Colace] 100 mg PO DAILY PRN 03/09/17 [History] Ferrous Sulfate [Iron] 325 mg PO BID 03/09/17 [History] Finasteride [Proscar] 5 mg PO DAILY 03/09/17 [History] Furosemide [Lasix] 20 mg PO DAILY PRN 03/09/17 [History] Losartan Potassium [Cozaar] 100 mg PO DAILY 03/09/17 [History] Multivit-Min/FA/Lycopen/Lutein [Centrum Silver Men Tablet] 1 tab PO DAILY [History] Ranolazine [Ranexa] 1,000 mg PO BID 03/09/17 [History] Simvastatin [Zocor] 20 mg PO DAILY 03/09/17 [History] Tamsulosin [Flomax] 0.4 mg PO DAILY 03/09/17 [History] Prasugrel [Effient] 10 mg PO DAILY 04/22/17 [History] Acetaminophen [Tylenol] 650 mg PO Q6HR PRN tablet 04/25/17 [Rx] Artificial Tears SOLN [Akwa Tears] 1 drop BOTH EYES QID PRN bottle 04/25/17 [Rx ] Allergies/Adverse Reactions: 3 Allergy/AdvReac Type Severity Reaction Status Date / Time bacitracin [From Polysporin] Allergy Hives Verified 04/22/17 06:07 Neomycin Allergy Hives Verified 04/22/17 06:07 [From Neosporin ([id number])] polymyxin B [From Polysporin] Allergy Hives Verified 04/22/17 06:07 - Respiratory Orders Smoking Cessation: Smoking cessation has been advised. For more information, call the [place] Tobacco Quit Line at 4-799-JDUS-NOW. CERTIFICATION: I certify that the transfer of the above named patient to an Extended Care Facility is necessary for the continuing treatment of the diagnosis listed. The above information is true and accurate reflection of patient's current condition. Confidential - Redisclosure prohibited without a patient's written consent.
--- NOTE | 2017-04-25 10:27 | Discharge Summary ---
- NOTES TO OUTPATIENT PROVIDER Notes to Outpatient Provider: Patient will need an outpatient capsule endoscopy set up with gastroenterology. A referral has already been initiated with the unit secretaries. He presented here with acute on chronic anemia and melanotic stools. His workup including endoscopies have been negative and patient. He has received 2 units of blood transfusion and total prior to discharge but we do not have a clear-cut reason for GI bleed. The patient off note, will continue to be on Effient for cardiac stents which were placed a few years ago. Orders not resulted at time of discharge: Pending orders 04/25/17 09:54 Red Blood Cells [BBK] Stat Type and Screen [BBK] Stat Date of Encounter: 04/25/17 Time of Encounter: 10:24 - Discharge Diagnosis (1) Syncope Priority: Primary Status: Acute Qualifiers: Syncope type: unspecified Qualified Code(s): R55 - Syncope and collapse (2) Anemia due to blood loss Priority: Secondary Status: Acute (3) Physical deconditioning Priority: Secondary Status: Acute (4) GI bleed Priority: Secondary Status: Suspected Qualifiers: GI bleed type/associated pathology: unspecified gastrointestinal hemorrhage type Qualified Code(s): K92.2 - Gastrointestinal hemorrhage, unspecified (5) Acute renal failure superimposed on stage 3 chronic kidney disease Priority: Secondary Status: Resolved Qualifiers: Acute renal failure type: unspecified Qualified Code(s): N17.9 - Acute kidney failure, unspecified; N18.3 - Chronic kidney disease, stage 3 (moderate) ; N18.3 - Chronic kidney disease, stage 3 (moderate) Hospital course: Mr. Howe is a 81 year old male with a past medical history of coronary artery disease who presented with syncope and acute on chronic anemia, melanotic stools. Recently underwent a workup which included EGD which did not reveal any source of acute bleeding. He also had a recent negative colonoscopy and gastroenterology have recommended outpatient follow-up with capsule endoscopy. The patient continues to be on Effient which has been prescribed to him by his barrel charrer helper for cardiac stents. His hemoglobin at the time of discharge was 7.6 this was after one unit was given to him when he initially presented with a 7. He was symptomatic and felt deconditioned and lethargic even at this number hence I am going to give him 1 unit of blood transfusion prior to his discharge along with 1 dose of Lasix and then have requested him to follow up closely with his primary care physician as well as internal recruiter for further management. He will need a capsule endoscopy to delineate the source of bleeding. I will also continue him on his ferrous sulfate. He also maintained decent blood pressures off any antihypertensives and I am only going to resume him on his ARB at discharge. - Time Spent with Patient Total time spent providing and/or coordinating discharge services: Greater than 30 minutes - Discharge Medications Home Medications: Docusate [Colace] 100 mg PO DAILY PRN 03/09/17 [History] Ferrous Sulfate [Iron] 325 mg PO BID 03/09/17 [History] Finasteride [Proscar] 5 mg PO DAILY 03/09/17 [History] Furosemide [Lasix] 20 mg PO DAILY PRN 03/09/17 [History] Losartan Potassium [Cozaar] 100 mg PO DAILY 03/09/17 [History] Multivit-Min/FA/Lycopen/Lutein [Centrum Silver Men Tablet] 1 tab PO DAILY [History] Ranolazine [Ranexa] 1,000 mg PO BID 03/09/17 [History] Simvastatin [Zocor] 20 mg PO DAILY 03/09/17 [History] Tamsulosin [Flomax] 0.4 mg PO DAILY 03/09/17 [History] Prasugrel [Effient] 10 mg PO DAILY 04/22/17 [History] Acetaminophen [Tylenol] 650 mg PO Q6HR PRN tablet 04/25/17 [Rx] Artificial Tears SOLN [Akwa Tears] 1 drop BOTH EYES QID PRN bottle 04/25/17 [Rx ] Allergies/Adverse Reactions: 3 Allergy/AdvReac Type Severity Reaction Status Date / Time bacitracin [From Polysporin] Allergy Hives Verified 04/22/17 06:07 Neomycin Allergy Hives Verified 04/22/17 06:07 [From Neosporin ([id number])] polymyxin B [From Polysporin] Allergy Hives Verified 04/22/17 06:07 Date of admission: 04/22/17 10:41 Primary care physician: Irving Latif Jr, MD - Constitutional Vitals: Temp Pulse Resp BP Pulse Ox 98.4 F 73 16 138/67 95 04/25/17 07:00 04/25/17 07:00 04/25/17 07:00 04/25/17 07:00 04/25/17 07:00 General appearance: Present: cooperative, A&O X 3, no acute distress, answers questions appropriately Exam: GENERAL: Alert, in moderate distress, feeling lethargic and weak overall EYES: PERRLA, EOMI EARS: External ears normal, canals clear OROPHARYNX: Lips, mucosa, and tongue normal. Teeth and gums normal. Oropharynx normal. NECK: No jugulovenous distention, No carotid bruits, Carotid pulse normal contour, Supple LUNGS: Lungs clear to auscultation, Good diaphragmatic excursion CARDIAC: Normal S1 and S2; no rubs, murmurs, or gallops ABDOMEN: Abdomen soft, non-tender, BS normal, No masses or organomegaly EXTREMITIES: Extremities normal, no deformities, edema, clubbing or skin discoloration. Good capillary refill., No ulcers NEURO: Gait normal. Reflexes normal and symmetric. Sensation grossly intact, Cranial nerves II-XII intact PULSES: 2+ radial, 2+ carotid Rest of the exam is non contributory - Patient Status Disposition: Transfer SNF Overall status at discharge: patient is progressing back to baseline - Discharge Instructions Follow Up With: Arsalan Brown MD [Partnered Physician] - 05/06/17 1:10 pm Irving Latif Jr, MD [Primary Care Provider] - 05/02/17 9:15 am Steven Alas DPM [Partnered Physician] - 04/28/17 10:15 am Carlos Moore MD [Partnered Physician] - (Web request sent 04/25/17 at 0930) - Diet and Activity Activity: as per physical therapy Diet: advance to your usual diet - VTE Documentation of Mechanical Device: Intermittent pneumatic compression device
[2017-04-25] MEDS ORDERED: 0.9 % Sodium Chloride 250 ML ONE (11:54)
[2017-04-25 14:56] VITALS: BP 135/62
== END 2017-04-25 15:35 | DRG 378 ==
LOC: EMEROO 05:58 → 2SOUTHHOLD 09:42 → INTOOBSV 09:42 → 2SOUTHHOLD 10:28 → SUATTDRO 10:41 → 3NENU 19:53
PROVIDERS: ADMIT Family Medicine; ATTEND Internal Medicine